=== PATIENT | female | born 1950 | race Caucasian/White ===

== ENCOUNTER → 2016-09-02 | Outpatient (CLI) | payer BC ==
[~2016-09-02] MED LIST: CHOL100027 PO; LEVO1TAB33 PO; LEVO75TA5 PO; OMG3 PO; PRLSR20 PO; THEO1TAB PO
--- NOTE | 2016-09-02 15:23 | MAMMOGRAPHY REPORT ---
UNILATERAL LEFT DIGITAL DIAGNOSTIC MAMMOGRAM TOMOSYNTHESIS WITH CAD: 09/02/2016 CLINICAL HISTORY: Six-month follow-up of left breast calcifications. TECHNIQUE: Breast tomosynthesis in addition to standard 2D mammography was performed. Current study was also evaluated with a Computer Aided Detection (CAD) system. Left CC and MLO 2-D and tomosynthes is images and spot magnification left CC and ML views were obtained. COMPARISON: Comparison is made to exams dated: 03/03/2016 mammogram, 02/24/2016 mammogram, 4 mammogram - [facility], 11/07/2012 mammogram, and 09/15/2011 mammogram - [facility]. BREAST COMPOSITION: There are scattered areas of fibroglandular density in the left breast. FINDINGS: Again noted is a small 4 mm cluster of punctate benign-appearing calcifications in the lef t upper inner quadrant. The calcifications are stable on spot magnification views dated 03/03/2016, and the calcifications may have been present on prior exams such as the 2010 and 2011 exam exam altho ugh there are technical differences which make it difficult to confirm stability. The other small 3 mm cluster of coarse heterogeneous calcifications in the left 6:00 breast are also stable compared to the 03/03/2016 exam and appear more coarsened compared to the 2013 exam. The calc ifications are probably benign and another short interval follow-up is recommended. The remainder of the left breast is stable compared to prior exams, without suspicious masses, calcifications, or are as of architectural distortion noted. Other benign-appearing left breast calcifications are not sign ificantly changed. IMPRESSION: ACR-BI-RADS CATEGORY 3: PROBABLY BENIGN Two small clusters of benign-appearing calcifications in the left upper inner quadrant and left 6:00 breast are stable on spot magnification views dated 03/03/2016 and are probably benign. Recommend bi lateral diagnostic tomosynthesis mammograms in 6 months, to reevaluate the left breast calcifications and for routine mammography of the right breast. The patient and her family have been verbally notified of the results. Approximately 10% of breast cancers are not detected with mammography. A negative mammographic report should not delay biopsy if a clinically suggestive mass is present. Kathi Bush M.D. /:09/02/2016 14:05:07 Paint Prep Technician: Joanna VU)(), [facility] letter sent: Follow Up Recommended 3 BI-RADS Code: ACR-BI-RADS Category 3: Probably Benign
== END | disposition home or self-care (01) ==
LOC: C.MAMM 13:12
PROVIDERS: ATTEND Family Medicine
DX: R92.1 Mammographic calcification found on diagnostic imaging of breast (principal)

== ENCOUNTER 2021-08-27 05:52 | Inpatient (IN) ==
[2021-08-27] MEDS ORDERED: SODIUM CHLORIDE 0.9% 250 ML IV PRN ×3 (06:12→22:05)
[2021-08-27] MEDS ORDERED: PANTOprazole 40 MG in SYRINGE 0 ML IV ONE (06:14)
--- NOTE | 2021-08-27 06:19 | Emergency Department Note ---
History of Present Illness General Chief complaint: GI Bleed Time Seen by Provider: 08/27/21 06:12 History of Present Illness 71-year-old female from a senior care via EMS reportedly EMS was called for a fall out of bed. When they they found the patient on the floor without any significant trauma however she was vomiting blood and had bloody bowel movement. Reportedly her blood pressure was 70s over 40s prior to emergency department arrival. Patient is on aspirin. Patient is recently been seen in our emergency department for falling. Patient's caregiver pulp mill supervisor states that she was doing fine last night. Patient denies any specific abdominal pain. There are no other mitigating or alleviating factors the patient is a poor historian due to her cognitive condition Home Medications Medication Instructions Recorded Confirmed Type cholecalciferol (vitamin D3) 25 1,000 unit PO QAM 03/19/19 08/19/21 History mcg (1,000 unit) tablet (Vitamin D3) levothyroxine 75 mcg tablet 75 mcg PO QAM 03/19/19 08/19/21 History metoprolol succinate 25 mg 12.5 mg PO QPM 03/19/19 08/19/21 History tablet,extended release 24 hr omega 3-hoc-gwt-fish oil 1,000 mg 1 cap PO QAM 03/19/19 08/19/21 History (120 mg-180 mg) capsule (Fish Oil) aspirin 81 mg tablet,delayed 81 mg PO HS 10/01/20 08/19/21 History release (Adult Aspirin Regimen) docusate sodium 100 mg capsule 200 mg PO HS 10/01/20 08/19/21 History (Colace) furosemide 20 mg tablet (Lasix) 20 mg PO 3XWK 10/01/20 08/19/21 History pravastatin 20 mg tablet 20 mg PO QAM 10/01/20 08/19/21 History L.acidophil,salivari-Bifido 1 cap PO QAM 08/19/21 08/19/21 History bifidum-Strep thermoph 175 mg capsule (Acidophilus Probiotic Blend) alendronate 70 mg tablet (Fosamax) 70 mg PO WK 08/19/21 08/19/21 History conjugated estrogens 0.625 mg/gram 0.625 mg VAGINAL 2XWK 08/19/21 08/19/21 History vaginal cream (Premarin) cyanocobalamin (vitamin B-12) 250 250 mcg PO QAM 08/19/21 08/19/21 History mcg tablet (Vitamin B-12) escitalopram oxalate 20 mg tablet 20 mg PO HS 08/19/21 08/19/21 History melatonin 5 mg sublingual tablet 5 mg SUBLINGUAL HS 08/19/21 08/19/21 History sennosides 8.6 mg tablet (senna) 8.6 mg PO HS 08/19/21 08/19/21 History Allergies Allergy/AdvReac Type Severity Reaction Status Date / Time Influenza Virus Vaccines Allergy Unknown VERY SICK Verified 08/19/21 10:59 Past Med/Surg History Medical History Acute diverticulitis CAD (coronary artery disease) Candidal vaginitis Change in mental status Chronic constipation Down syndrome Fever (04/09/13) Heart disease Hypoxemia Influenza A Ischemic cardiomyopathy Leukocytosis Mitral regurgitation Pneumonia Surgical History No pertinent past surgical history Family History Other No pertinent family history in first degree relatives Social History Smoking Status: Never smoker Hx Alcohol Use: No Hx Substance Use: No Preferred Language: Palauan Communication Ability: Effective Children'S Entertainer Required: No Beliefs That Will Affect Care: None marital status: Single Current Living Situation: Parent Current Living Situation Comment: mother Feels Safe at Home: Yes Assistive Devices: Glasses and Hearing Aid - Bilateral Review of Systems Unobtainable due to cognitive status Physical Exam Vital Signs Vital Signs - 24 hr 08/27/21 05:45 Temperature 36.9 C Temperature Source Oral Pulse Rate 78 Respiratory Rate 20 Respiratory Effort / Characteristics Non-Labored Respiratory Depth Normal Blood Pressure 102/65 Blood Pressure Mean 77 Pulse Oximetry 94 Oxygen Delivery Method Room Air Sepsis Recent Fever Within 48 Hours No Sepsis New/Unexplained Change in Mental Status No Sepsis Action Taken by Nursing No Action Required VITAL SIGNS - Vital signs and nursing notes were reviewed. GENERAL -Ill appearing; and is moaning interactive but moans SKIN - Without rashes. HEAD - NC/AT. EYES - PERRL with EOMI bilaterally. Sclera anicteric. Palpebral conjunctiva pink and moist with no injection noted. EARS - No deformities of external structures noted on gross examination bilaterally. NOSE - Midline and without cyanosis. No epistaxis or purulent drainage noted. Septum midline without deviation or septal hematoma noted. MOUTH/OROPHARYNX - Without perioral cyanosis. Patient has dried hematemesis in the oropharynx and around her mouth NECK - Neck with FROM. LUNGS - Chest wall symmetric without accessory muscle use, intercostals retractions, or central cyanosis. Normal vesicular breath sounds CTA B/L. No wheezes, rales, or rhonchi appreciated. CARDIAC - RRR with S1/S2. No murmur, rubs, or gallops appreciated. ABDOMEN - Abdominal contour soft without pulsations or visible masses. BS normoactive all four quadrants. No tenderness, palpable masses, hepatosplenomegaly, or ascites noted. RECTAL - heme positive melana EXTREMITIES - No clubbing or peripheral cyanosis. NEUROLOGIC - Cranial nerves II through XII grossly intact. PSYCH -alert interactive but moaning. Is interactive and answers questions with shaking her head she does understand myself and the nurses at bedside Course Reevaluation(s) Reevaluation #1: Spoke with the [facility] she states that the patient has the cognitive ability to sign for blood. I have consented the patient she does acknowledge affirmatively that she would like to receive blood Time: 06:24 Reevaluation #2: Patient's blood pressure is 102/85 Time: 06:24 Critical Care Time Critical Care Time: Yes Total Critical Care Time: 35 I have personally spent greater than 35 minutes of critical care time in the direct management of this patient. This includes bedside care, interpretation of diagnostic studies, and testing, discussion with consultants, patient, and family members, and other required patient management activities. These minutes are in excess of all separately billable procedures. Medical Decision Making Medical Records Attestation: I reviewed the patient's medical records. Home Medications Current Medication List: was personally reviewed by me Laboratory Data Attestation: I reviewed the patient's lab results. Result diagrams: 08/27/21 06:10 08/27/21 06:10 Lab Results 08/27/21 08/27/21 08/27/21 Range/Units 06:03 06:05 06:10 WBC (4.8-10.8) K/uL RBC (4.2-5.4) M/uL Hgb (12.0-16.0) g/dL POC Hgb 5.8 L* (12.0-16.0) g/dl Hct (37-47) % POC Hct 17 L* (37-47) % MCV (80-100) fL MCH (25-34) pg MCHC (32-36) g/dL RDW Std Deviation (36.4-46.3) fL RDW Coeff of Glenn (11.5-14.5) % Plt Count (130-400) K/uL MPV (7.4-10.4) fL POC Sodium 145 H (135-144) mmol/L Sodium (136-145) mmol/L POC Potassium 3.9 (3.3-5.0) mmol/L Potassium (3.5-5.1) mmol/L POC Chloride 107 (101-112) mmol/L Chloride (98-107) mmol/L Carbon Dioxide (21-32) mmol/L POC Total CO2 25 (24-31) mmol/L Anion Gap (3-11) POC Anion Gap 18.0 (16-25) mmol/L POC BUN 54 H (7-18) mg/dl BUN (6-23) mg/dl Creatinine (0.6-1.2) mg/dl POC Creatinine 0.7 (0.6-1.3) mg/dl Est Cr Clr Drug Dosing ml/min Est GFR ( Amer) ml/min Est GFR (Non-Af Amer) ml/min BUN/Creatinine Ratio (10-20) Glucose (70-99(Fasting)) mg/dl POC Glucose (other) 153 H (70-99) mg/dl Calcium (8.5-10.1) mg/dl POC Ioniz Calcium Kenrick 1.15 (1.12-1.32) mmol/l Total Bilirubin (0.2-1.0) mg/dl AST (13-39) U/L ALT (7-52) U/L Alkaline Phosphatase (34-104) U/L Total Protein (6.0-8.3) gm/dl Albumin (3.4-5.0) gm/dl Globulin (2.5-4.0) gm/dl Albumin/Globulin Ratio (0.9-2) POC Stool Occult Blood Positive A (Negative) SARS-CoV-2, RNA, NAAT (NEGATIVE) Crossmatch See Detail 08/27/21 08/27/21 08/27/21 Range/Units 06:10 06:10 06:12 WBC 9.51 (4.8-10.8) K/uL RBC 2.10 L (4.2-5.4) M/uL Hgb 6.4 L* (12.0-16.0) g/dL POC Hgb (12.0-16.0) g/dl Hct 20.1 L* (37-47) % POC Hct (37-47) % MCV 95.7 (80-100) fL MCH 30.5 (25-34) pg MCHC 31.8 L (32-36) g/dL RDW Std Deviation 48.9 H (36.4-46.3) fL RDW Coeff of Glenn 14.1 (11.5-14.5) % Plt Count 163 (130-400) K/uL MPV 9.0 (7.4-10.4) fL POC Sodium (135-144) mmol/L Sodium 144 (136-145) mmol/L POC Potassium (3.3-5.0) mmol/L Potassium 4.0 (3.5-5.1) mmol/L POC Chloride (101-112) mmol/L Chloride 112 H (98-107) mmol/L Carbon Dioxide 28 (21-32) mmol/L POC Total CO2 (24-31) mmol/L Anion Gap 4 (3-11) POC Anion Gap (16-25) mmol/L POC BUN (7-18) mg/dl BUN 56 H (6-23) mg/dl Creatinine 0.68 (0.6-1.2) mg/dl POC Creatinine (0.6-1.3) mg/dl Est Cr Clr Drug Dosing 60.0 ml/min Est GFR ( Amer) 102.7 ml/min Est GFR (Non-Af Amer) 88.6 ml/min BUN/Creatinine Ratio 82.4 H (10-20) Glucose 155 H (70-99(Fasting)) mg/dl POC Glucose (other) (70-99) mg/dl Calcium 7.8 L (8.5-10.1) mg/dl POC Ioniz Calcium Kenrick (1.12-1.32) mmol/l Total Bilirubin 0.3 (0.2-1.0) mg/dl AST 12 L (13-39) U/L ALT 9 (7-52) U/L Alkaline Phosphatase 41 (34-104) U/L Total Protein 4.6 L (6.0-8.3) gm/dl Albumin 3.0 L (3.4-5.0) gm/dl Globulin 1.6 L (2.5-4.0) gm/dl Albumin/Globulin Ratio 1.9 (0.9-2) POC Stool Occult Blood Positive A (Negative) SARS-CoV-2, RNA, NAAT (NEGATIVE) Crossmatch 08/27/21 Range/Units 06:27 WBC (4.8-10.8) K/uL RBC (4.2-5.4) M/uL Hgb (12.0-16.0) g/dL POC Hgb (12.0-16.0) g/dl Hct (37-47) % POC Hct (37-47) % MCV (80-100) fL MCH (25-34) pg MCHC (32-36) g/dL RDW Std Deviation (36.4-46.3) fL RDW Coeff of Glenn (11.5-14.5) % Plt Count (130-400) K/uL MPV (7.4-10.4) fL POC Sodium (135-144) mmol/L Sodium (136-145) mmol/L POC Potassium (3.3-5.0) mmol/L Potassium (3.5-5.1) mmol/L POC Chloride (101-112) mmol/L Chloride (98-107) mmol/L Carbon Dioxide (21-32) mmol/L POC Total CO2 (24-31) mmol/L Anion Gap (3-11) POC Anion Gap (16-25) mmol/L POC BUN (7-18) mg/dl BUN (6-23) mg/dl Creatinine (0.6-1.2) mg/dl POC Creatinine (0.6-1.3) mg/dl Est Cr Clr Drug Dosing ml/min Est GFR ( Amer) ml/min Est GFR (Non-Af Amer) ml/min BUN/Creatinine Ratio (10-20) Glucose (70-99(Fasting)) mg/dl POC Glucose (other) (70-99) mg/dl Calcium (8.5-10.1) mg/dl POC Ioniz Calcium Kenrick (1.12-1.32) mmol/l Total Bilirubin (0.2-1.0) mg/dl AST (13-39) U/L ALT (7-52) U/L Alkaline Phosphatase (34-104) U/L Total Protein (6.0-8.3) gm/dl Albumin (3.4-5.0) gm/dl Globulin (2.5-4.0) gm/dl Albumin/Globulin Ratio (0.9-2) POC Stool Occult Blood (Negative) SARS-CoV-2, RNA, NAAT NEGATIVE (NEGATIVE) Crossmatch MDM Narrative Medical decision making differential diagnosis upper GI bleed lower GI bleed anemia esophagitis ulcerative bleeding. Metabolic derangement. Plan is to check labs, transfuse blood Impression & Plan Upper gastrointestinal hemorrhage, Anemia Discharge Plan Visit Data Chief Complaint: GI Bleed ED Provider: Олег Cameron Discharge Problem: Upper gastrointestinal hemorrhage, Anemia Patient Disposition: Admitted As Inpatient Forms Stand Alone Forms: My [facility] Prescriptions Prescriptions: No Action pravastatin 20 mg tablet 20 mg PO QAM RF: 0 aspirin [Adult Aspirin Regimen] 81 mg tablet,delayed release (DR/EC) 81 mg PO HS RF: 0 docusate sodium [Colace] 100 mg capsule 200 mg PO HS RF: 0 furosemide [Lasix] 20 mg tablet 20 mg PO 3XWK RF: 0 levothyroxine 75 mcg tablet 75 mcg PO QAM RF: 0 metoprolol succinate 25 mg tablet extended release 24 hr 12.5 mg PO QPM RF: 0 cholecalciferol (vitamin D3) [Vitamin D3] 25 mcg (1,000 unit) Tablet 1,000 unit PO QAM RF: 0 omega 0-dts-wnu-fish oil [Fish Oil] 1,000 mg (120 mg-180 mg) Capsule 1 cap PO QAM RF: 0 sennosides [senna] 8.6 mg Tablet 8.6 mg PO HS RF: 0 melatonin 5 mg Tablet, Sublingual 5 mg SUBLINGUAL HS RF: 0 alendronate [Fosamax] 70 mg Tablet 70 mg PO WK RF: 0 cyanocobalamin (vitamin B-12) [Vitamin B-12] 250 mcg Tablet 250 mcg PO QAM RF: 0 escitalopram oxalate 20 mg tablet 20 mg PO HS RF: 0 L.acidoph,saliva-B.bif-S.therm [Acidophilus Probiotic Blend] 175 mg Capsule 1 cap PO QAM RF: 0 Premarin 0.625 mg/gram cream 0.625 mg vaginal 2XWK RF: 0 Referrals Referrals: Lulu Harper MD [Primary Care Provider] - Discharge Problem: Anemia Qualifiers: Anemia type: unspecified type Qualified Code(s): D64.9 - Anemia, unspecified
[2021-08-27 06:22] LABS: iSTAT Creatinine 0.7 mg/dl (0.6-1.3); iSTAT Hemoglobin 5.8 g/dl (12.0-16.0); iSTAT Ionized Calcium 1.15 mmol/l (1.12-1.32); iSTAT Potassium 3.9 mmol/L (3.3-5.0)
[2021-08-27] MEDS ORDERED: ONDANSETRON INJ 2 MG/ML 2 ML VIAL IV STA (06:28)
[2021-08-27 06:36] LABS: Hematocrit (blood only) 20.1 % (37-47); Hemoglobin 6.4 g/dL (12.0-16.0); Mean Corpuscular Hemoglobin 30.5 pg (25-34); Mean Corpuscular Hgb Conc 31.8 g/dL (32-36); Mean Corpuscular Volume 95.7 fL (80-100); Platelet Count 163 K/uL (130-400); RDW Coefficient of Variation 14.1 % (11.5-14.5); RDW Standard Deviation 48.9 fL (36.4-46.3); White Blood Count 9.51 K/uL (4.8-10.8)
[2021-08-27 06:51] LABS: Albumin Globulin Ratio 1.9 (0.9-2); BUN Creatinine Ratio 82.4 (10-20); Bilirubin,Total 0.3 mg/dl (0.2-1.0); Calcium 7.8 mg/dl (8.5-10.1); Est GFR (African American) 102.7 ml/min; Est GFR (Non-African American) 88.6 ml/min; Globulin 1.6 gm/dl (2.5-4.0); Total Protein 4.6 gm/dl (6.0-8.3)
[2021-08-27 06:56] LABS: INR 1.1 (0.9-1.1); Partial Thromboplastin Ratio 0.7; Partial Thromboplastin Time < 20.0 Seconds (21.0-31.0); Prothrombin Time 11.8 Seconds (9.0-12.0)
--- NOTE | 2021-08-27 07:44 | History & Physical Report ---
Date of Service August 27, 2021 Assessment & Plan (1) GI bleed: Plan: Ely is a 71-year-old female alf resident who presents by EMS after a fall out of bed. Patient was found vomiting blood with a bloody bowel movement with blood pressure of 70s over 40s in the ER on arrival --> 100 systolic. 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 History is limited due to cognitive status and history of Down syndrome. Acute blood loss anemia 2/2 GI bleed Admitting hemoglobin 6.4 Creatinine 0.69, baseline normal Fecal occult blood positive COVID-negative Status post 2 days of blood with improvement in vitals from 70/40s to 100s GI consulted by ER. Discussed by ER briefly with Dr. River who recommended consultation for [facility]. Notified on follow-up that case has been recommended for [facility] service, consult placed Posttransfusion hemoglobin pending Trend CBC PPI bolus given in ER Continue PPI drip Aspirin held Initial hypotension improved with blood pressure to 100-110 and without tachycardia following blood xfusion initiation Borderline low EF, cautious fluids and will follow for Lasix as needed Per patient and sister at bedside patient was seen at [facility] for a hiatal hernia repair many years ago, has not been seen by GI here. They think she may have had some GERD episodes in the past. Takes aspirin, not on NSAIDs. Depression/anxiety Continue Lexapro 20 mg p.o. at bedtime CAD with history of heart failure ejection fraction 50% Home Lasix held for hypotension and bleeding Metoprolol 12.5 p.o. every afternoon home dose held for acute hypotension Aspirin held in the setting of acute bleeding Denies chest pain at time of assessment EKG: NSR without acute ST segment changes on admission Hypothyroidism Synthroid 75 mcg p.o. every morning TSH pending Hyperlipidemia Pravastatin 20 mg p.o. every morning DVT prophylaxis: SCDs, pharmacal prophylaxis contraindicated in the setting of bleed Diet: N.p.o. Disposition: PCU, pending GI eval for EGD CODE STATUS: (2) Fall: (3) Upper gastrointestinal hemorrhage: (4) Anemia: (5) Thrombocytopenia: (6) Leukopenia: (7) Hypothyroidism: (8) Down syndrome: (9) CAD (coronary artery disease): History of Present Illness Primary Care Provider: Lulu Harper MD Ely is a 71-year-old female alf resident who presents by EMS after a fall out of bed. Patient was found vomiting blood with a bloody bowel movement with blood pressure of 70s over 40s in the ER on arrival --> 100 systolic. 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 History is limited due to cognitive status and history of Down syndrome. 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 [facility]. Sister Kate Salvador is present. #[phone]. Medical Power of Machine Stoppage Frequency Checker Ely is normally 'very fast on her feet and has club feet so sometimes just goes and falls being clumbsy when not lifting her feet. Does do well with a walker.' Falls are usually once per year or so. Three falls in the last few months. Mechanical falls (fell ove a doorway bar, last one mechanical tripped over her foot). No lightheadedness, dizziness, syncope. No blurry vision. 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 Following outpatient opthamology with serial imaging q6m stable. Routine f/u with physicians. Are looking for PT when she returns to the [facility]. CHF followed w/ Dr. Banegas, CAD. EF 50%, grade I diastolic dysfunction - Takes lasix. Unsure if diastolic or systolic. - No recent chest pain or chest discomfort - No history of heart attack/SC - Pt/sister unclear of ischemic history, HF details - ASA 81mg daily for CAD - take mtp as noted Initial labs: Hemoglobin 6.4, no leukocytosis, sodium 145, potassium 3.9, creatinine 0.68 with normal baseline, fecal occult blood positive, COVID-negative 40mg IV bolus PPI 2 units blood pended GI consulted prior to admit. Discussed with [facility] GI Dr. العراقي [facility] --> patient not accepted for [facility] and recommended to consult [facility] GI. Placed by ER, notified ~11 am that pt needs to be under [facility] service. PSH consult placed. Medical History: Reviewed. No meds today Medications: Reviewed. NKDA. Surgical History: Reviewed. Thinks distant histerectomy, sister is not positive. Esophageal hital hernia repair 2010. Allergies: Reviewed Social History: No tobacco use, no alcohol use, no RR drug use, no MM use. Code Status: DNR/DNi Allergies Allergy/AdvReac Type Severity Reaction Status Date / Time Influenza Virus Vaccines Allergy Unknown VERY SICK Verified 08/19/21 10:59 Home Medications Medication Instructions Recorded Confirmed Type cholecalciferol (vitamin D3) 25 1,000 unit PO QAM 03/19/19 08/19/21 History mcg (1,000 unit) tablet (Vitamin D3) levothyroxine 75 mcg tablet 75 mcg PO QAM 03/19/19 08/19/21 History metoprolol succinate 25 mg 12.5 mg PO QPM 03/19/19 08/19/21 History tablet,extended release 24 hr omega 4-mps-iku-fish oil 1,000 mg 1 cap PO QAM 03/19/19 08/19/21 History (120 mg-180 mg) capsule (Fish Oil) aspirin 81 mg tablet,delayed 81 mg PO HS 10/01/20 08/19/21 History release (Adult Aspirin Regimen) docusate sodium 100 mg capsule 200 mg PO HS 10/01/20 08/19/21 History (Colace) furosemide 20 mg tablet (Lasix) 20 mg PO 3XWK 10/01/20 08/19/21 History pravastatin 20 mg tablet 20 mg PO QAM 10/01/20 08/19/21 History L.acidophil,salivari-Bifido 1 cap PO QAM 08/19/21 08/19/21 History bifidum-Strep thermoph 175 mg capsule (Acidophilus Probiotic Blend) alendronate 70 mg tablet (Fosamax) 70 mg PO WK 08/19/21 08/19/21 History conjugated estrogens 0.625 mg/gram 0.625 mg VAGINAL 2XWK 08/19/21 08/19/21 History vaginal cream (Premarin) cyanocobalamin (vitamin B-12) 250 250 mcg PO QAM 08/19/21 08/19/21 History mcg tablet (Vitamin B-12) escitalopram oxalate 20 mg tablet 20 mg PO HS 08/19/21 08/19/21 History melatonin 5 mg sublingual tablet 5 mg SUBLINGUAL HS 08/19/21 08/19/21 History sennosides 8.6 mg tablet (senna) 8.6 mg PO HS 08/19/21 08/19/21 History Past Med/Surg History Medical History Acute diverticulitis CAD (coronary artery disease) Candidal vaginitis Change in mental status Chronic constipation Down syndrome Fever (04/09/13) Heart disease Hypoxemia Influenza A Ischemic cardiomyopathy Leukocytosis Mitral regurgitation Pneumonia Surgical History (Updated 08/27/21 @ 08:56 by Rhys Sousa MD) H/O: hysterectomy per pts sister History of repair of hiatal hernia No pertinent past surgical history Family History Other No pertinent family history in first degree relatives Social History Smoking Status: Never smoker Hx Alcohol Use: No Hx Substance Use: No Preferred Language: Estonian Communication Ability: Effective 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 NAD. Cooperative. HEENT: Atraumatic, normocephalic. Vision grossly intact. Very [place], hearing aids present. Pulm: CTAB A&P. -wheezes, -rales, -rhonchi. Symmetrical chest rise. No increased work of breathing. No respiratory distress. Cardiac: RRR, -mrg. Radial pulses intact and symmetrical. Abdominal: Nontender, nondistended, soft. BS present. Results & Data Results & Data ([facility]) Vital Signs (Past 12 Hours) Vital Signs Temp Pulse Resp BP Pulse Ox 08/27/21 05:45 36.9 C 78 20 102/65 94 PG Care Time/CCT Total # of Minutes Spent Total Time Spent with Patient: Total time spent is greater than 50% in coordination of care (as documented) at patient's floor/unit and/or counseling patient: Coding Level of Care Code 98688 Initial Inpt Care Lvl 3 Diagnoses GI bleed K92.2 Fall W19.XXXA Encounter type: initial encounter Upper gastrointestinal hemorrhage K92.2 Anemia D64.9 Anemia type: unspecified type Thrombocytopenia D69.6 Leukopenia D72.819 Hypothyroidism E03.9 Down syndrome Q90.9 CAD (coronary artery disease) I25.10 (1) Anemia Anemia type: unspecified type Qualified Code(s): D64.9 - Anemia, unspecified (2) Fall Encounter type: initial encounter Qualified Code(s): W19.XXXA - Unspecified fall, initial encounter
[2021-08-27] MEDS ORDERED: ACETAMINOPHEN 325 MG TAB ONE (11:37)
[2021-08-27] MEDS: PANTOprazole 40 MG in DEXTROSE 5% 100 ML IV SCH ×2 (11:55→18:54)
--- NOTE | 2021-08-27 12:43 | Electrocardiogram Report ---
Test Reason : Blood Pressure : / mmHG Vent. Rate : 075 BPM Atrial Rate : 075 BPM P-R Int : 128 ms QRS Dur : 118 ms QT Int : 452 ms P-R-T Axes : 114 -35 057 degrees QTc Int : 504 ms Poor data quality, interpretation may be adversely affected Normal sinus rhythm Left axis deviation Anterior infarct (cited on or before 27-AUG-2021) Abnormal ECG When compared with ECG of 19-MAR-2019 16:36, Fusion complexes are no longer Present Premature ventricular complexes are no longer Present Nonspecific T wave abnormality now evident in Lateral leads Confirmed by Juni Redman ([id number]) on 08/27/2021 12:43:15 PM Referred By: REFERRED SELF Confirmed By:Juni Redman
[2021-08-27] MEDS ORDERED: ONDANSETRON INJ 2 MG/ML 2 ML VIAL IV PRN (12:44)
[2021-08-27] MEDS ORDERED: POLYETHYLENE (MIRALAX) 17 GM PACK PO PRN (12:44)
[2021-08-27] MEDS ORDERED: PANTOPRAZOLE BOLUS/DRIP 1 EA IV STA (12:44)
[2021-08-27] MEDS ORDERED: PANTOprazole 40 MG in DEXTROSE 5% 100 ML IV SCH (12:44)
[2021-08-27] MEDS ORDERED: PANTOprazole 80 MG in DEXTROSE 5% 100 ML IV ONE (12:44)
[2021-08-27] MEDS ORDERED: ACETAMINOPHEN 325 MG TAB PO PRN (12:44)
--- NOTE | 2021-08-27 14:39 | Gastrointestinal Consultation ---
Date of Consultation August 27, 2021 Assessment & Plan (1) GI bleed: (2) Upper gastrointestinal hemorrhage: (3) Fall: (4) Acute blood loss anemia: (5) Down syndrome: Impression is acute upper GI bleeding with acute blood loss anemia and hemodynamic instability in a 71 yo woman with Down syndrome, CAD, CHF, ischemic cardiomyopathy. Differential diagnosis includes bleeding from erosive esophagitis, NSAID gastroduodenopathy, hemorrhagic gastrtitis, and gastroduodenal ulcer disease. She has been resuscitated and I recommend proceeding with EGD for identification and control of bleeding if necessary. History of Present Illness Reason for Consultation: Hematemesis and Melena Attending Physician: Rhys Sousa MD History of Present Illness 71 yo woman with intellectual and developmental disability due to Down syndrome, and history of ischemic cardiomyopathy, mitral regurgitation, and congestive heart failure, transferred [facility] a [facility] due to an episode of hematemesis and passing melena and collapsing on the floor.. On arrival in the ER, she was hemodynamically unstable with systolic pressure < 90 mm Hg, and initial Hgb was 6-7. She was successfully resuscitated with IV fluids with recovery of systolic pressure to 110 mm Hg, and when examined she was receiving packed cells. History obtained from the patient's sister and her [facility] caregiver. No previous history of GI bleeding. She takes daily low dose aspirin, no other NSAIDS, no other anti platelet agents or anticoagulation. History of CHF, no history of atrai fibrillation, [place], coronary stents. Allergies Allergy/AdvReac Type Severity Reaction Status Date / Time No Known Allergies Allergy Unverified 08/27/21 12:44 Home Medications Medication Instructions Recorded Confirmed Type cholecalciferol (vitamin D3) 25 1,000 unit PO QAM 03/19/19 08/27/21 History mcg (1,000 unit) tablet (Vitamin D3) levothyroxine 75 mcg tablet 75 mcg PO QAM 03/19/19 08/27/21 History metoprolol succinate 25 mg 12.5 mg PO QPM 03/19/19 08/27/21 History tablet,extended release 24 hr omega 9-lmz-vqn-fish oil 1,000 mg 1 cap PO QAM 03/19/19 08/27/21 History (120 mg-180 mg) capsule (Fish Oil) aspirin 81 mg tablet,delayed 81 mg PO HS 10/01/20 08/27/21 History release (Adult Aspirin Regimen) docusate sodium 100 mg capsule 200 mg PO HS 10/01/20 08/27/21 History (Colace) furosemide 20 mg tablet (Lasix) 20 mg PO 3XWK 10/01/20 08/27/21 History pravastatin 20 mg tablet 20 mg PO QAM 10/01/20 08/27/21 History L.acidophil,salivari-Bifido 1 cap PO QAM 08/19/21 08/27/21 History bifidum-Strep thermoph 175 mg capsule (Acidophilus Probiotic Blend) alendronate 70 mg tablet (Fosamax) 70 mg PO WK 08/19/21 08/27/21 History conjugated estrogens 0.625 mg/gram 0.625 mg VAGINAL 2XWK 08/19/21 08/27/21 History vaginal cream (Premarin) cyanocobalamin (vitamin B-12) 250 250 mcg PO QAM 08/19/21 08/27/21 History mcg tablet (Vitamin B-12) escitalopram oxalate 20 mg tablet 20 mg PO HS 08/19/21 08/27/21 History melatonin 5 mg sublingual tablet 5 mg SUBLINGUAL HS 08/19/21 08/27/21 History sennosides 8.6 mg tablet (senna) 8.6 mg PO HS 08/19/21 08/27/21 History furosemide 20 mg tablet 20 mg PO DAILY PRN 08/27/21 08/27/21 History Patient History Medical History (Updated 08/27/21 @ 16:54 by Lionel Cooper MD) Acute diverticulitis CAD (coronary artery disease) Candidal vaginitis Change in mental status Chronic constipation Down syndrome Fever (04/09/13) Heart disease Hypoxemia Influenza A Ischemic cardiomyopathy Leukocytosis Mitral regurgitation Pneumonia Surgical History (Updated 08/27/21 @ 08:56 by Rhys Sousa MD) H/O: hysterectomy per pts sister History of repair of hiatal hernia No pertinent past surgical history Family History Other No pertinent family history in first degree relatives Social History Smoking Status: Never smoker Second Hand Exposure: No; Hx Alcohol Use: No Hx Substance Use: No Preferred Language: [place] Communication Ability: Effective Umbrella Cutter Required: No Beliefs That Will Affect Care: None marital status: Single Current Living Situation: Other Current Living Situation Comment: INTERMEDIATE Other Information That Helps Us Care for You: No Feels Safe at Home: Yes Safety Concerns: Feels Safe At This Time Assistive Devices: Glasses and Hearing Aid - Bilateral Review of Systems Review of Systems: Unobtainable due to cognitive status Physical Exam Constitutional: + ill appearing, + altered mental status, + behavioral limitations, + physical limitations, + disheveled and + lethargic Respiratory: normal respiratory effort, lungs clear to auscultation Cardiovascular: Rate/Rhythm: regular rate and regular rhythm Heart Sounds: + murmur Gastrointestinal (Abdomen): normal bowel sounds, soft, nontender, no hepatosplenomegaly Neurologic: lethargic, responsive, with dementia, disorientation Results & Data ([facility]) Vital Signs (Past 12 Hours) Vital Signs Temp Pulse Resp BP Pulse Ox 08/27/21 14:15 82 15 91/52 L 90 08/27/21 14:02 37.0 C 81 18 107/54 L 94 08/27/21 14:00 82 15 107/54 L 98 08/27/21 13:45 82 17 101/48 L 91 08/27/21 13:30 85 17 104/48 L 97 08/27/21 13:24 37 C 84 18 104/48 L 98 08/27/21 13:15 87 15 111/52 L 96 08/27/21 13:00 89 17 85/49 L 92 08/27/21 12:59 37.2 C 88 18 96/58 L 96 08/27/21 12:45 88 19 96/58 L 94 08/27/21 12:42 36.7 C 18 98/47 L 96 08/27/21 12:30 36.7 C 87 18 98/47 L 95 08/27/21 12:15 37.4 C 88 18 96/48 L 96 08/27/21 12:00 93 H 19 98/53 L 97 08/27/21 11:54 37.6 C H 92 H 21 98/55 L 96 08/27/21 11:45 36.7 C 92 H 22 113/53 L 95 08/27/21 11:30 38.3 C H 93 H 26 H 105/49 L 94 08/27/21 11:24 36.7 C 92 H 18 109/52 L 96 08/27/21 11:22 92 H 20 109/52 L 96 08/27/21 11:15 92 H 18 103/55 L 95 08/27/21 11:10 37.2 C 91 H 20 103/55 L 96 08/27/21 11:06 37.0 C 92 H 20 116/47 L 94 08/27/21 11:00 92 H 22 116/47 L 95 08/27/21 10:45 93 H 25 H 125/56 L 08/27/21 10:30 92 H 22 113/55 L 08/27/21 10:15 93 H 26 H 105/57 L 08/27/21 10:10 37.2 C 86 100/58 L 96 08/27/21 10:00 19 100/59 L 95 08/27/21 09:45 19 96/52 L 95 08/27/21 09:30 19 105/46 L 95 08/27/21 09:15 37.0 C 90 23 110/50 L 96 08/27/21 09:00 37.1 C 89 17 105/70 98 08/27/21 08:45 85 19 102/52 L 95 08/27/21 08:30 86 24 98/47 L 98 08/27/21 08:25 86 19 98/47 L 08/27/21 08:24 37.2 C 86 18 94/40 L 96 08/27/21 08:15 84 22 103/48 L 95 08/27/21 08:13 85 20 99/46 L 96 08/27/21 08:10 84 18 96 08/27/21 08:04 37.2 C 84 18 101/36 L 08/27/21 08:00 81 19 101/36 L 97 08/27/21 07:50 83 20 93 08/27/21 07:45 96 08/27/21 07:40 81 20 94 08/27/21 07:30 81 21 85/61 L 95 08/27/21 07:20 84 19 94 08/27/21 07:10 80 20 100 08/27/21 07:00 78 22 107/46 L 98 08/27/21 06:50 76 24 96 08/27/21 06:40 78 27 H 96 08/27/21 06:30 78 25 H 102/49 L 95 08/27/21 06:20 77 20 92 08/27/21 06:18 79 18 102/65 92 08/27/21 06:10 88 20 08/27/21 06:03 74 19 08/27/21 05:45 36.9 C 78 20 102/65 94 (1) Fall Encounter type: initial encounter Qualified Code(s): W19.XXXA - Unspecified fall, initial encounter
[2021-08-27 16:29] LABS: Hematocrit (blood only) 26.6 % (37-47); Hemoglobin 8.9 g/dL (12.0-16.0)
--- NOTE | 2021-08-27 16:54 | CT Scan Report ---
CT head/brain wo con CLINICAL HISTORY: fall . Pain. COMPARISON STUDY: No previous studies for comparison. CT DOSE: 894.57 mGycm TECHNIQUE: Standard CT of the Brain was performed without IV contrast. A dose lowering technique was utilized adhering to the principles of ALARA. FINDINGS: Extraaxial space: There is no evidence for subdural hematoma. There are no extra-axial fluid collecti ons. Ventricles and cisterns: The ventricles are normal in size and configuration. There is no evidence fo r midline shift or mass effect. Parenchyma: There is no subarachnoid or intraparenchymal hemorrhage. There is no evidence for an acut e infarct or cerebral edema. There is mild cerebral cortical atrophy and decreased attenuation in the periventricular white matter representing remote small vessel disease. There are no gross mass lesions. Osseous structures: There is no evidence for an acute fracture. The visualized paranasal sinuses are clear. The mastoid air cells are clear bilaterally. Soft tissues: There is no evidence for focal soft tissue swelling. IMPRESSION: 1. No acute intracerebral pathology. 2. Mild cerebral cortical atrophy and remote small vessel disease. ACT 112: Negative or not required by law. Electronically signed by: Rambo Davis M.D. 08/27/2021 4:53 PM
--- NOTE | 2021-08-27 17:26 | Anesthesiology Consultation ---
Date of Service August 27, 2021 Assessment & Plan ASA ASA3 Proposed Anesthesia Anesthesia Type: MAC Risk / Benefits Reviewed With: PT / POA / Parent / Guardian, Accepts Plan and Informed Consent Obtained History Surgery Operation Date: 08/27/21 17:10 Proposed Procedures p Esophagogastroduodenoscopy Dr Kenneth Cooper MD Height/Weight Height: 4 ft 10 in Weight: 62.1 kg Allergies Allergy/AdvReac Type Severity Reaction Status Date / Time No Known Allergies Allergy Unverified 08/27/21 12:44 Medications Home Medications Medication Instructions Recorded Confirmed Last Taken cholecalciferol (vitamin D3) 25 1,000 unit PO QAM 03/19/19 08/27/21 08/26/21 mcg (1,000 unit) tablet (Vitamin D3) levothyroxine 75 mcg tablet 75 mcg PO QAM 03/19/19 08/27/21 08/26/21 metoprolol succinate 25 mg 12.5 mg PO QPM 03/19/19 08/27/21 08/26/21 tablet,extended release 24 hr omega 8-mbx-oho-fish oil 1,000 mg 1 cap PO QAM 03/19/19 08/27/21 08/26/21 (120 mg-180 mg) capsule (Fish Oil) aspirin 81 mg tablet,delayed 81 mg PO HS 10/01/20 08/27/21 08/26/21 release (Adult Aspirin Regimen) docusate sodium 100 mg capsule 200 mg PO HS 10/01/20 08/27/21 08/26/21 (Colace) furosemide 20 mg tablet (Lasix) 20 mg PO 3XWK 10/01/20 08/27/21 08/25/21 pravastatin 20 mg tablet 20 mg PO QAM 10/01/20 08/27/21 08/26/21 L.acidophil,salivari-Bifido 1 cap PO QAM 08/19/21 08/27/21 08/26/21 bifidum-Strep thermoph 175 mg capsule (Acidophilus Probiotic Blend) alendronate 70 mg tablet (Fosamax) 70 mg PO WK 08/19/21 08/27/21 08/24/21 conjugated estrogens 0.625 mg/gram 0.625 mg VAGINAL 2XWK 08/19/21 08/27/21 08/26/21 vaginal cream (Premarin) cyanocobalamin (vitamin B-12) 250 250 mcg PO QAM 08/19/21 08/27/21 08/26/21 mcg tablet (Vitamin B-12) escitalopram oxalate 20 mg tablet 20 mg PO HS 08/19/21 08/27/21 08/26/21 melatonin 5 mg sublingual tablet 5 mg SUBLINGUAL HS 08/19/21 08/27/21 08/26/21 sennosides 8.6 mg tablet (senna) 8.6 mg PO HS 08/19/21 08/27/21 08/26/21 furosemide 20 mg tablet 20 mg PO DAILY PRN 08/27/21 08/27/21 Unknown Active Medications Generic Name Dose Route Start Last Admin Trade Name Freq PRN Reason Stop Dose Admin Pantoprazole Sodium 40 mg/ 100 mls @ 20 mls/hr 08/27/21 11:00 08/27/21 11:55 Dextrose IV 09/26/21 10:59 8 mg/hr Q5H JAZMINE 20 mls/hr Administration 8 MG/HR NPO Date Last Intake of Fluids: 08/26/21 Time Last Intake of Fluids: 18:00 Last Intake of Fluids Comment: estimation from sister Date Last Intake of Solids: 08/26/21 Time Last Intake of Solids: 18:00 Last Intake of Solids Comment: estimation from sister Past Medical History Medical History Acute diverticulitis CAD (coronary artery disease) Candidal vaginitis Change in mental status Chronic constipation Down syndrome Fever (04/09/13) Heart disease Hypoxemia Influenza A Ischemic cardiomyopathy Leukocytosis Mitral regurgitation Pneumonia Exercise / Class Metabolic Activity III < 4 Walking/Shop/Light housework Past Family History Family History Other No pertinent family history in first degree relatives Past Surgical History Surgical History H/O: hysterectomy per pts sister History of repair of hiatal hernia No pertinent past surgical history Past Anesthesia History No Hx of Anesthesia Complications and No Family Hx of Anesthesia Complications History of PONV No Hx of PONV and No Hx of Motion Sickness Social History Smoking Status: Never smoker Hx Alcohol Use: No Hx Substance Use: No substance use type: does not use Review of Systems denies fever/cough/ colds/ chest pain/ SOB/ PAUL denies PAUL Physical Exam Vital Signs Last Vital Signs Temp 37.7 C H 08/27/21 16:54 Pulse 91 H 08/27/21 16:54 Resp 20 08/27/21 16:54 BP 99/53 L 08/27/21 16:54 Pulse Ox 96 08/27/21 16:54 ENMT Mouth: no TMJ abnormality and no dentition abnormality Thyromental Distance: > or= 3.5 Finger Breadths Mallampati Class: IV (poor patient participation. difficult to assess) Neck neck extension not limited Respiratory normal respiratory effort; no respiratory distress Auscultation: lungs clear to auscultation bilaterally Cardiovascular Rate/Rhythm: regular rate and regular rhythm Neurologic moves all extremities Psychiatric Orientation: alert and oriented x 3 Testing Laboratory Results 08/27/21 16:08 08/27/21 06:10 PT 11.8 Seconds (9.0-12.0) 08/27/21 06:10 INR 1.1 (0.9-1.1) 08/27/21 06:10 APTT < 20.0 Seconds (21.0-31.0) L 08/27/21 06:10 Blood Type O Positive 08/27/21 06:10 Antibody Screen NEGATIVE 08/27/21 06:10 08/27/21 06:05 POC Glucose (other) 153 H
[2021-08-27] MEDS ORDERED: ATROPINE SULFATE 0.1 MG/ML 10ML SYR IV PRN (17:28)
[2021-08-27] MEDS ORDERED: ePHEDrine sulfate 50 MG/ML AMP IV PRN (17:28)
[2021-08-27] MEDS: CHOLECALCIFEROL 1,000 UNITS 25 MCG TAB PO SCH (17:30)
[2021-08-27] MEDS: LEVOTHYROXINE SODIUM 75 MCG TABLET PO SCH (17:31)
[2021-08-27] MEDS: PRAVASTATIN SOD 20 MG TAB PO SCH (17:31)
[2021-08-27] MEDS: CYANOCOBALAMIN (B-12) 500 MCG TABLET PO SCH (17:31)
[2021-08-27] MEDS: cefTRIAXone SODIUM 1,000 MG in DEXTROSE 5% 50 ML IV SCH (17:33)
[2021-08-27] MEDS ORDERED: PROPOFOL IV EMULSION 10 MG/ML 20 ML VIAL IV ONE (17:42)
--- NOTE | 2021-08-27 18:22 | GI REPORT ---
Patient Name: Ely Ramsey Procedure Date: 08/27/2021 3:01 PM Date of : 1950 Admit Type: Inpatient Age: 71 Gender: Female Attending MD: Lionel Cooper MD Procedure: Upper GI endoscopy Providers: Lionel Cooper MD Referring MD: Rhys Sousa Md Indications: Hematemesis, Melena, Suspected upper gastrointestinal bleeding Medicines: Monitored Anesthesia Care Complications: No immediate complications. Estimated Blood Loss: Estimated blood loss: none. Procedure: Pre-Anesthesia Assessment: - Prior to the procedure, a History and Physical was performed, and patient medications and allergies were reviewed. The patient is unable to give consent secondary to the patient being legally incompetent to consent. The risks and benefits of the procedure and the sedation options and risks were discussed with the patient's sister and guardian. All questions were answered and informed consent was obtained. Patient identification and proposed procedure were verified by the physician and the nurse in the pre-procedure area. Mental Status Examination: lethargic. Airway Examination: normal oropharyngeal airway and neck mobility. Respiratory Examination: clear to auscultation. CV Examination: systolic murmur. Prophylactic Antibiotics: The patient does not require prophylactic antibiotics. Prior Anticoagulants: The patient has taken no previous anticoagulant or antiplatelet agents except for aspirin. ASA Grade Assessment: III - A patient with severe systemic disease. After reviewing the risks and benefits, the patient was deemed in satisfactory condition to undergo the procedure. The anesthesia plan was to use monitored anesthesia care (MAC). Immediately prior to administration of medications, the patient was re-assessed for adequacy to receive sedatives. The heart rate, respiratory rate, oxygen saturations, blood pressure, adequacy of pulmonary ventilation, and response to care were monitored throughout the procedure. The physical status of the patient was re-assessed after the procedure. After obtaining informed consent, the endoscope was passed under direct vision. Throughout the procedure, the patient's blood pressure, pulse, and oxygen saturations were monitored continuously. The Endoscope was introduced through the mouth, and advanced to the second part of duodenum. The upper GI endoscopy was accomplished without difficulty. The patient tolerated the procedure well. Findings: The examined esophagus was normal. There is no endoscopic evidence of bleeding, mucosal abnormalities or varices in the entire esophagus. The Z-line was regular and was found 40 cm from the incisors. One non-bleeding cratered gastric ulcer with pigmented material was found in the gastric antrum. The lesion was 12 mm in largest dimension. No biopsies or other specimens were collected for this exam. One non-bleeding linear and superficial gastric ulcer with no stigmata of bleeding was found in the prepyloric region of the stomach. The lesion was 7 mm in largest dimension. There is no endoscopic evidence of bleeding in the entire examined stomach. The examined duodenum was normal. Impression: - Normal esophagus. - Z-line regular, 40 cm from the incisors. - Non-bleeding gastric ulcer with pigmented material. No specimens collected. - Non-bleeding gastric ulcer with no stigmata of bleeding. - Normal examined duodenum. Recommendation: - Return patient to [facility] for ongoing care. - NPO. - The patient has taken no previous aspirin or NSAID medications. - Use a proton pump inhibitor IV. MD Lionel Millan MD 08/27/2021 6:22:47 PM This report has been signed electronically. Note Initiated On: 08/27/2021 3:01 PM Number of Addenda: 0 I attest to the content of the Intraoperative Record and orders documented therein, exceptions below {[id number]}
--- NOTE | 2021-08-27 18:31 | Post Operative Brief Note ---
Immediate Post Op Note v1 Date of Surgery August 27, 2021 Pre & Post Diagnosis Operation Date: 08/27/21 17:10 Pre-Op Diagnosis: Gastrointestinal bleed Post-Op Diagnosis: Gastric Ulcers I identified the patient and participated in the time-out.: Yes Procedure Operation Date: 08/27/21 17:10 Actual Procedures p Esophagogastroduodenoscopy - Lioenl Cooper MD Surgeon Lionel Cooper MD It Manager none Estimated Blood Loss 0 Findings Consistent with Post-Op Diagnosis Large 1 cm diameter round gastric antral ulcer with flat brown spot at ulcer base, not bleeding. Another small linear stellate shallow prepyloric gastric ulcer with no stigmata. No blood seen in the upper GI tract. Rebleeding risk is low to moderate in this case. Continue IV PPI, avoid aspirin and all other NSAIDs. When fully awake can resume diet with clear liquids. Continue observation for bleeding. Complications no immediate complications
[2021-08-27] MEDS ORDERED: FUROSEMIDE 20 MG TAB PO PRN (18:52)
--- NOTE | 2021-08-27 19:08 | Anesthesiology Progress Note ---
Date of Service August 27, 2021 Anesthesia Post Procedure Vital Signs Vital Signs: Temp Pulse Pulse Pulse Resp BP BP 08/27/21 18:56 37.6 C H 84 18 08/27/21 18:35 37.1 C 87 20 08/27/21 18:25 90 25 H 08/27/21 18:16 37.2 C 97 H 19 08/27/21 16:54 37.7 C H 91 H 20 99/53 L 08/27/21 15:20 37.3 C 86 18 113/71 08/27/21 14:15 82 15 91/52 L 08/27/21 14:02 37.0 C 81 18 107/54 L 08/27/21 14:00 82 15 107/54 L 08/27/21 13:45 82 17 101/48 L 08/27/21 13:30 85 17 104/48 L 08/27/21 13:24 37 C 84 18 104/48 L 08/27/21 13:15 87 15 111/52 L 08/27/21 13:00 89 17 85/49 L 08/27/21 12:59 37.2 C 88 18 96/58 L 08/27/21 12:45 88 19 96/58 L 08/27/21 12:42 36.7 C 18 98/47 L 08/27/21 12:30 36.7 C 87 18 98/47 L 08/27/21 12:15 37.4 C 88 18 96/48 L 08/27/21 12:00 93 H 19 98/53 L 08/27/21 11:54 37.6 C H 92 H 21 98/55 L 08/27/21 11:45 36.7 C 92 H 22 113/53 L 08/27/21 11:30 38.3 C H 93 H 26 H 105/49 L 08/27/21 11:24 36.7 C 92 H 18 109/52 L 08/27/21 11:22 92 H 20 109/52 L 08/27/21 11:15 92 H 18 103/55 L 08/27/21 11:10 37.2 C 91 H 20 103/55 L 08/27/21 11:06 37.0 C 92 H 20 116/47 L 08/27/21 11:00 92 H 22 116/47 L 08/27/21 10:45 93 H 25 H 125/56 L 08/27/21 10:30 92 H 22 113/55 L 08/27/21 10:15 93 H 26 H 105/57 L 08/27/21 10:10 37.2 C 86 100/58 L 08/27/21 10:00 19 100/59 L 08/27/21 09:45 19 96/52 L 08/27/21 09:30 19 105/46 L 08/27/21 09:15 37.0 C 90 23 110/50 L 08/27/21 09:00 37.1 C 89 17 105/70 08/27/21 08:45 85 19 102/52 L 08/27/21 08:30 86 24 98/47 L 08/27/21 08:25 86 19 98/47 L 08/27/21 08:24 37.2 C 86 18 94/40 L 08/27/21 08:15 84 22 103/48 L 08/27/21 08:13 85 20 99/46 L 08/27/21 08:10 84 18 08/27/21 08:04 37.2 C 84 18 101/36 L 08/27/21 08:00 81 19 101/36 L 08/27/21 07:50 83 20 08/27/21 07:45 08/27/21 07:40 81 20 08/27/21 07:30 81 21 85/61 L 08/27/21 07:20 84 19 08/27/21 07:10 80 20 08/27/21 07:00 78 22 107/46 L 08/27/21 06:50 76 24 08/27/21 06:40 78 27 H 08/27/21 06:30 78 25 H 102/49 L 08/27/21 06:20 77 20 08/27/21 06:18 79 18 102/65 08/27/21 06:10 88 20 08/27/21 06:03 74 19 08/27/21 05:45 36.9 C 78 20 102/65 BP Pulse Ox 08/27/21 18:56 100/63 95 08/27/21 18:35 106/57 L 93 08/27/21 18:25 111/49 L 92 08/27/21 18:16 118/65 100 08/27/21 16:54 96 08/27/21 15:20 96 08/27/21 14:15 90 08/27/21 14:02 94 08/27/21 14:00 98 08/27/21 13:45 91 08/27/21 13:30 97 08/27/21 13:24 98 08/27/21 13:15 96 08/27/21 13:00 92 08/27/21 12:59 96 08/27/21 12:45 94 08/27/21 12:42 96 08/27/21 12:30 95 08/27/21 12:15 96 08/27/21 12:00 97 08/27/21 11:54 96 08/27/21 11:45 95 08/27/21 11:30 94 08/27/21 11:24 96 08/27/21 11:22 96 08/27/21 11:15 95 08/27/21 11:10 96 08/27/21 11:06 94 08/27/21 11:00 95 08/27/21 10:45 08/27/21 10:30 08/27/21 10:15 08/27/21 10:10 96 08/27/21 10:00 95 08/27/21 09:45 95 08/27/21 09:30 95 08/27/21 09:15 96 08/27/21 09:00 98 08/27/21 08:45 95 08/27/21 08:30 98 08/27/21 08:25 08/27/21 08:24 96 08/27/21 08:15 95 08/27/21 08:13 96 08/27/21 08:10 96 08/27/21 08:04 08/27/21 08:00 97 08/27/21 07:50 93 08/27/21 07:45 96 08/27/21 07:40 94 08/27/21 07:30 95 08/27/21 07:20 94 08/27/21 07:10 100 08/27/21 07:00 98 08/27/21 06:50 96 08/27/21 06:40 96 08/27/21 06:30 95 08/27/21 06:20 92 08/27/21 06:18 92 08/27/21 06:10 08/27/21 06:03 08/27/21 05:45 94 Pain Intensity Face: Pain Intensity: 5 Transfer of Care Handoff Completed per policy Notes Mental Status: alert / awake / arousable and participated in evaluation Patient Amnestic to Procedure: Yes Nausea / Vomiting: adequately controlled Pain: adequately controlled Airway Patency, RR, SpO2: stable & adequate BP & HR: stable & adequate Hydration State: stable & adequate Anesthetic Complications: no major complications apparent and Pt Satisfied with anesthetic care
[2021-08-27] MEDS: METOPROLOL SUCC 25MG EXT REL TAB PO SCH (20:19)
[2021-08-27] MEDS: ESCITALOPRAM OXALATE 20 MG TAB PO SCH (20:19)
[2021-08-27] MEDS: MELATONIN 3 MG TAB PO SCH (20:19)
[2021-08-27] MEDS: DOCUSATE SODIUM 100 MG CAP PO SCH (20:19)
[2021-08-27] MEDS: SENNA 8.6 MG TAB PO SCH (20:20)
[2021-08-27] MEDS ORDERED: ASPIRIN 81 MG ECTAB PO SCH (21:00)
[2021-08-27 21:42] LABS: Hematocrit (blood only) 19.1 % (37-47); Hemoglobin 6.5 g/dL (12.0-16.0)
--- NOTE | 2021-08-27 22:09 | Communication Note ---
Date of Service: August 27, 2021 Repeat Hb at 9pm dropped to 6s. Transfusing 2 units. EGD w/o source of bleed. Source of bleed unknown; continue workup. per admission notes, had bloody emesis and bloody stool in outpatient setting. Hx of difficult colonoscopy in past.
[2021-08-28] MEDS: PANTOprazole 40 MG in DEXTROSE 5% 100 ML IV SCH ×5 (00:17→18:35)
[2021-08-28] MEDS ORDERED: ACETAMINOPHEN 1000 MG/100 ML IV IV ONE (00:59)
[2021-08-28] MEDS: LEVOTHYROXINE SODIUM 75 MCG TABLET PO SCH (05:37)
[2021-08-28 06:31] LABS: Basophils # (auto) 0.01 K/uL (0-0.2); Basophils % (auto) 0.1 %; Eosinophils # (auto) 0.11 K/uL (0-0.5); Eosinophils % (auto) 0.9 %; Hematocrit (blood only) 32.6 % (37-47); Hemoglobin 10.9 g/dL (12.0-16.0); Immature Granulocytes # (auto) 0.06 K/uL (0.00-0.02); Immature Granulocytes % (auto) 0.5 %; Lymphocytes # (auto) 1.58 K/uL (1.2-3.4); Lymphocytes % (auto) 12.4 %; Mean Corpuscular Hemoglobin 30.4 pg (25-34); Mean Corpuscular Hgb Conc 33.4 g/dL (32-36); Mean Corpuscular Volume 91.1 fL (80-100); Mean Platelet Volume 9.2 fL (7.4-10.4); Monocytes # (auto) 1.09 K/uL (0.11-0.59); Monocytes % (auto) 8.5 %; Neutrophils % (auto) 77.6 %; Platelet Count 108 K/uL (130-400); RDW Coefficient of Variation 15.9 % (11.5-14.5); RDW Standard Deviation 52.4 fL (36.4-46.3); Red Blood Count 3.58 M/uL (4.2-5.4); White Blood Count 12.75 K/uL (4.8-10.8)
[2021-08-28 06:53] LABS: Albumin Globulin Ratio 1.6 (0.9-2); Albumin Level 2.8 gm/dl (3.4-5.0); BUN Creatinine Ratio 36.6 (10-20); Bilirubin,Total 1.1 mg/dl (0.2-1.0); Calcium 7.4 mg/dl (8.5-10.1); Creatinine Clr Calc Pharmacy 57.5 ml/min; Est GFR (Non-African American) 86.3 ml/min; Globulin 1.8 gm/dl (2.5-4.0); Potassium 3.6 mmol/L (3.5-5.1); Total Protein 4.6 gm/dl (6.0-8.3)
[2021-08-28] MEDS ORDERED: [UNRECOGNIZED DRUG - OTHER] PO SCH (09:00)
[2021-08-28] MEDS: CHOLECALCIFEROL 1,000 UNITS 25 MCG TAB PO SCH (09:52)
[2021-08-28] MEDS: CYANOCOBALAMIN (B-12) 500 MCG TABLET PO SCH (09:52)
[2021-08-28] MEDS: PRAVASTATIN SOD 20 MG TAB PO SCH (09:53)
--- NOTE | 2021-08-28 11:24 | Hospitalist Progress Note ---
Date of Service August 28, 2021 Assessment & Plan (1) GI bleed: Plan: Ely is a 71-year-old female [place] [facility] resident who presents by EMS after a fall out of bed. Patient was found vomiting blood with a bloody bowel movement with blood pressure of 70s over 40s in the ER on arrival --> 100 systolic. 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 History is limited due to cognitive status and history of Down syndrome. Acute blood loss anemia 2/2 GI bleed Admitting hemoglobin 6.4 Creatinine 0.69, baseline normal Fecal occult blood positive COVID-negative - Rocephin for GIB ppx Status post 2 days of blood with improvement in vitals from 70/40s to 100s GI consulted by ER. Discussed by ER briefly with Dr. River who recommended consultation for [facility]. Notified on follow-up that case has been recommended for [facility] service, consult placed PPI bolus given in ER, continued on PPI drip Aspirin held Initial hypotension improved with blood pressure to 100-110 and without tachycardia following blood xfusion initiation Borderline low EF, cautious fluids and will follow for Lasix as needed Per patient and sister at bedside patient was seen at [facility] for a hiatal hernia repair many years ago, has not been seen by GI here. They think she may have had some GERD episodes in the past. Takes aspirin, not on NSAIDs. Following 2 units transfusion patient with appropriate rise from 6.4-8.9 Subsequently decreased on recheck to 6.5, transfused 2 units, with more than appropriate rise to 10.9 Hemodynamically stable without tachycardia morning of 08/27, blood pressure remains borderline low intermittently EGD: Normal esophagus, no endoscopic evidence of bleeding, mucosal abnormalities, or varices in the esophagus. In the stomach 1 nonbleeding cratered gastric ulcer with pigmented material was seen, 1 nonbleeding linear and superficial gastric ulcer with no stigmata of bleeding, and no endoscopic evidence of active bleeding in the stomach, and normal duodenum. Recommended to continue PPI IV, and resume clear liquids with continued observation. Rebleeding risk estimated low to moderate. Avoid aspirin and NSAIDs. Appreciate GI recommendations above. Patient without evidence of bleeding in the stomach/esophagus/duodenum. Continue to follow H&H. If stable anticipate progression towards discharge and outpt followup with ?pill endoscopy. If again drops will transfuse as indicated, --> require tagged bleeding study versus transfer for push endoscopy vsinterventional radiology at that point. Given hematemesis and melena rather than bright red blood per rectum suspect upper/mid rather than lower GI bleed. Colonoscopy technically challenging and unable to be completed in the past per pt family - Of note family reported hiatal hernia repair in distant past, no endoscopic evidence on EGD - H&H spontaneously uptrending on recheck - Decent UOP this AM per nursing report, oral hydration encouraged Somnolence, Fall. Suspect concussion - Pt reports a fall with a R Cheek/chin contusion - CT-H: 1. No acute intracerebral pathology. 2. Mild cerebral cortical atrophy and remote small vessel disease. - R nystagmus on lateral gaze, exam somewhat limited by engagement - Suspect pt sustained a concussion, imaging with naf and reportedly new nystagus and fatigue not significantly improved with hgb improvement. Symptomatic rest. Will require regular followup. Depression/anxiety Continue Lexapro 20 mg p.o. at bedtime CAD with history of heart failure ejection fraction 50% Home Lasix held for hypotension and bleeding Metoprolol 12.5 p.o. every afternoon home dose held for acute hypotension Aspirin held in the setting of acute bleeding Denies chest pain at time of assessment EKG: NSR without acute ST segment changes on admission Hypothyroidism Synthroid 75 mcg p.o. every morning TSH wnl Hyperlipidemia Pravastatin 20 mg p.o. every morning DVT prophylaxis: SCDs, pharmacal prophylaxis contraindicated in the setting of bleed Diet: N.p.o. Disposition: PCU, pending GI eval for EGD CODE STATUS: (2) Fall: (3) Upper gastrointestinal hemorrhage: (4) Anemia: (5) Thrombocytopenia: (6) Leukopenia: (7) Hypothyroidism: (8) Down syndrome: (9) CAD (coronary artery disease): Admission and Anticipated Discharge Date Admission Date: August 27, 2021 Subjective Awakens easily, but remains somnolent. Very drowsy per nurse and sister more so than normal. Patient denies pain, no further episodes of hematemesis. Denies shortness of breath, chest pain, chest pressure. Discourse somewhat limited by intellectual disability and fatigue. Denies abdominal tenderness. Review of Systems Review of Systems: All systems reviewed & are unremarkable except as noted in Subjective (Somewhat limited by cognitive status and fatigue) Physical Exam Physical Exam: General: Awakens easily. NAD. Cooperative. HEENT: Atraumatic, normocephalic. Vision grossly intact. Very [place]. Pupils equal and reactive to light. R nystagmus on lateral gaze. R lateral cheek contusion without crepitus, contusion under chin without crepitus. L Strabismus present, baseline. Pulm: CTAB A&P. -wheezes, -rales, -rhonchi. Symmetrical chest rise. No increased work of breathing. No respiratory distress. Cardiac: RRR, -mrg. Radial pulses intact and symmetrical. Abdominal: Nontender, nondistended, soft. BS present. Results & Data Results & Data ([facility]) Vital Signs (Past 12 Hours) Vital Signs Temp Pulse Pulse Resp BP BP Pulse Ox 08/28/21 09:00 37.2 C 90 18 99/62 L 90 08/28/21 07:00 76 08/28/21 05:01 36.8 C 78 20 100/56 L 91 08/28/21 04:13 36.9 C 78 104/60 90 08/28/21 03:13 36.8 C 80 20 93/52 L 93 08/28/21 02:58 36.9 C 78 20 123/61 95 08/28/21 02:43 36.9 C 78 20 123/61 95 08/28/21 02:32 36.8 C 84 22 108/58 L 92 08/28/21 02:28 36.7 C 84 22 108/60 92 08/28/21 02:12 36.8 C 85 22 100/57 L 94 08/28/21 01:48 37 C 86 105/58 L 92 08/28/21 01:14 36.8 C 86 105/63 94 08/28/21 00:14 37.2 C 85 108/77 95 08/28/21 00:00 87 08/27/21 23:44 37.3 C 85 24 107/66 93 08/27/21 23:29 37 C 86 24 99/60 L 93 PG Care Time/CCT Total # of Minutes Spent Total Time Spent with Patient: Total time spent is greater than 50% in coordination of care (as documented) at patient's floor/unit and/or counseling patient: Coding Level of Care Code 75964 Subseq Hosp Care Lvl 3 Diagnoses GI bleed K92.2 Fall W19.XXXA Encounter type: initial encounter Upper gastrointestinal hemorrhage K92.2 Anemia D64.9 Anemia type: unspecified type Thrombocytopenia D69.6 Leukopenia D72.819 Hypothyroidism E03.9 Down syndrome Q90.9 CAD (coronary artery disease) I25.10 (1) Anemia Anemia type: unspecified type Qualified Code(s): D64.9 - Anemia, unspecified (2) Fall Encounter type: initial encounter Qualified Code(s): W19.XXXA - Unspecified fall, initial encounter
--- NOTE | 2021-08-28 11:35 | Gastroenterology Progress Note ---
Date of Service August 28, 2021 Assessment & Plan (1) Gastric ulcer with hemorrhage: (2) Upper gastrointestinal hemorrhage: (3) Acute blood loss anemia: (4) Down syndrome: Plan: Upper GI bleed resolved, with low to intermediate rebleeding risk from gastric ulcer based on endoscopic findings. Recommend advance diet as tolerated and switch PPI from IV to BID oral administration, hold aspirin and if antiplatelet agent is necessary, consider using clopidogrel instead, starting after hospital discharge. Continue PPI as outpatient and repeat EGD in 4-6 months to document ulcer healing. Regarding hiatal hernia repair in 2010, I did not see evidence of a fundopl ication repair on endoscopic examination of the stomach yesterday, nor did I see a recurrent hernia. Regarding colonoscopy examination, the source of bleeding was in the upper GI tract and colonoscopy is not indicated at this time. Regarding future colon cancer screening examinations, the incidence of colon cancer is very low in individuals with Down syndrome. I recommend screening with Cologuard stool testing (not at this time as she has blood in the GI tract and the test will be positive), colonoscopy only if the stool testing is positive. Admission and Anticipated Discharge Date Admission Date: August 27, 2021 Subjective Ms. Ramsey is more alert and responsive this morning, good eye contact and she is responding to questions with nodding, not speaking, and she cooperates with the physical examination. Staff reports there has been no physical evidence of any further GI bleeding following endoscopy yesterday. She received additional 2 units of packed red blood cells overnight (total of 4 units) and Hgb > 10 gm, HCT > 32% this morning. Review of Systems Review of Systems: Unobtainable due to cognitive status Physical Exam Constitutional: + altered mental status, + behavioral limitations, cooperative, comfortable and + lethargic; not in distress Respiratory: normal respiratory effort, lungs clear to auscultation Cardiovascular: Rate/Rhythm: regular rate and regular rhythm Heart Sounds: + murmur Gastrointestinal (Abdomen): normal bowel sounds, soft, nontender, no hepatosplenomegaly Neurologic: moves all extremities and awake Results & Data ([facility]) Vital Signs (Past 12 Hours) Vital Signs Temp Pulse Pulse Resp BP BP Pulse Ox 08/28/21 09:00 37.2 C 90 18 99/62 L 90 08/28/21 07:00 76 08/28/21 05:01 36.8 C 78 20 100/56 L 91 06/25/22 04:13 36.9 C 78 104/60 90 08/28/21 03:13 36.8 C 80 20 93/52 L 93 08/28/21 02:58 36.9 C 78 20 123/61 95 08/28/21 02:43 36.9 C 78 20 123/61 95 08/28/21 02:32 36.8 C 84 22 108/58 L 92 08/28/21 02:28 36.7 C 84 22 108/60 92 08/28/21 02:12 36.8 C 85 22 100/57 L 94 08/28/21 01:48 37 C 86 105/58 L 92 08/28/21 01:14 36.8 C 86 105/63 94 08/28/21 00:14 37.2 C 85 108/77 95 08/28/21 00:00 87 08/27/21 23:44 37.3 C 85 24 107/66 93 08/27/21 23:29 37 C 86 24 99/60 L 93 Laboratory Results 08/28/21 08/28/21 08/28/21 Range/Units 05:12 05:12 05:12 WBC 12.75 H (4.8-10.8) K/uL RBC 3.58 L (4.2-5.4) M/uL Hgb 10.9 L D (12.0-16.0) g/dL Hct 32.6 L (37-47) % MCV 91.1 (80-100) fL MCH 30.4 (25-34) pg MCHC 33.4 (32-36) g/dL RDW Std Deviation 52.4 H (36.4-46.3) fL RDW Coeff of Glenn 15.9 H (11.5-14.5) % Plt Count 108 L (130-400) K/uL MPV 9.2 (7.4-10.4) fL Immature Gran % (Auto) 0.5 % Neut % (Auto) 77.6 % Lymph % (Auto) 12.4 % [place] % (Auto) 8.5 % Eos % (Auto) 0.9 % Baso % (Auto) 0.1 % Neut # (Auto) 9.90 H (1.4-6.5) K/uL Lymph # (Auto) 1.58 (1.2-3.4) K/uL [place] # (Auto) 1.09 H (0.11-0.59) K/uL Eos # (Auto) 0.11 (0-0.5) K/uL Baso # (Auto) 0.01 (0-0.2) K/uL Immature Gran # (Auto) 0.06 H (0.00-0.02) K/uL Sodium 145 (136-145) mmol/L Potassium 3.6 (3.5-5.1) mmol/L Chloride 114 H (98-107) mmol/L Carbon Dioxide 29 (21-32) mmol/L Anion Gap 2 L (3-11) BUN 26 H D (6-23) mg/dl Creatinine 0.71 (0.6-1.2) mg/dl Est Cr Clr Drug Dosing 57.5 ml/min Est GFR ( Amer) 100.0 ml/min Est GFR (Non-Af Amer) 86.3 ml/min BUN/Creatinine Ratio 36.6 H (10-20) Glucose 104 H (70-99(Fasting)) mg/dl Calcium 7.4 L (8.5-10.1) mg/dl Total Bilirubin 1.1 H D (0.2-1.0) mg/dl AST 14 (13-39) U/L ALT 8 (7-52) U/L Alkaline Phosphatase 35 (34-104) U/L Total Protein 4.6 L (6.0-8.3) gm/dl Albumin 2.8 L (3.4-5.0) gm/dl Globulin 1.8 L (2.5-4.0) gm/dl Albumin/Globulin Ratio 1.6 (0.9-2) Hepatitis C Ab (EIA) Pending Hep C Ab Signal/Cutoff Pending Blood Type Antibody Screen Crossmatch 08/27/21 08/27/21 08/27/21 Range/Units 21:16 16:08 06:10 WBC (4.8-10.8) K/uL RBC (4.2-5.4) M/uL Hgb 6.5 L* 8.9 L (12.0-16.0) g/dL Hct 19.1 L* 26.6 L (37-47) % MCV (80-100) fL MCH (25-34) pg MCHC (32-36) g/dL RDW Std Deviation (36.4-46.3) fL RDW Coeff of [place] (11.5-14.5) % Plt Count (130-400) K/uL MPV (7.4-10.4) fL Immature Gran % (Auto) % Neut % (Auto) % Lymph % (Auto) % [place] % (Auto) % Eos % (Auto) % Baso % (Auto) % Neut # (Auto) (1.4-6.5) K/uL Lymph # (Auto) (1.2-3.4) K/uL [place] # (Auto) (0.11-0.59) K/uL Eos # (Auto) (0-0.5) K/uL Baso # (Auto) (0-0.2) K/uL Immature Gran # (Auto) (0.00-0.02) K/uL Sodium (136-145) mmol/L Potassium (3.5-5.1) mmol/L Chloride (98-107) mmol/L Carbon Dioxide (21-32) mmol/L Anion Gap (3-11) BUN (6-23) mg/dl Creatinine (0.6-1.2) mg/dl Est Cr Clr Drug Dosing ml/min Est GFR ( Amer) ml/min Est GFR (Non-Af Amer) ml/min BUN/Creatinine Ratio (10-20) Glucose (70-99(Fasting)) mg/dl Calcium (8.5-10.1) mg/dl Total Bilirubin (0.2-1.0) mg/dl AST (13-39) U/L ALT (7-52) U/L Alkaline Phosphatase (34-104) U/L Total Protein (6.0-8.3) gm/dl Albumin (3.4-5.0) gm/dl Globulin (2.5-4.0) gm/dl Albumin/Globulin Ratio (0.9-2) Hepatitis C Ab (EIA) Hep C Ab Signal/Cutoff Blood Type O Positive Antibody Screen NEGATIVE Crossmatch See Detail
[2021-08-28 12:25] LABS: Hematocrit (blood only) 33.6 % (37-47); Hemoglobin 11.3 g/dL (12.0-16.0)
[2021-08-28] MEDS: cefTRIAXone SODIUM 1,000 MG in DEXTROSE 5% 50 ML IV SCH (13:41)
[2021-08-28 18:37] LABS: Hemoglobin 10.8 g/dL (12.0-16.0)
[2021-08-28 18:38] LABS: Hematocrit (blood only) 32.2 % (37-47)
[2021-08-28] MEDS: PANTOprazole 40 MG TAB PO SCH (20:37)
[2021-08-28] MEDS: METOPROLOL SUCC 25MG EXT REL TAB PO SCH (20:37)
[2021-08-28] MEDS: MELATONIN 3 MG TAB PO SCH (20:37)
[2021-08-28] MEDS: ESCITALOPRAM OXALATE 20 MG TAB PO SCH (20:37)
[2021-08-28] MEDS: SENNA 8.6 MG TAB PO SCH (20:37)
[2021-08-28] MEDS: DOCUSATE SODIUM 100 MG CAP PO SCH (20:38)
[2021-08-29 01:25] LABS: Hematocrit (blood only) 30.3 % (37-47); Hemoglobin 10.3 g/dL (12.0-16.0)
[2021-08-29] MEDS: LEVOTHYROXINE SODIUM 75 MCG TABLET PO SCH (05:30)
[2021-08-29 08:41] LABS: Basophils # (auto) 0.02 K/uL (0-0.2); Basophils % (auto) 0.2 %; Eosinophils # (auto) 0.23 K/uL (0-0.5); Eosinophils % (auto) 2.6 %; Hemoglobin 11.2 g/dL (12.0-16.0); Immature Granulocytes # (auto) 0.05 K/uL (0.00-0.02); Immature Granulocytes % (auto) 0.6 %; Lymphocytes # (auto) 1.37 K/uL (1.2-3.4); Lymphocytes % (auto) 15.4 %; Mean Corpuscular Hemoglobin 31.5 pg (25-34); Mean Corpuscular Hgb Conc 33.9 g/dL (32-36); Mean Corpuscular Volume 92.7 fL (80-100); Mean Platelet Volume 9.2 fL (7.4-10.4); Monocytes # (auto) 0.75 K/uL (0.11-0.59); Monocytes % (auto) 8.4 %; Neutrophils # (auto) 6.47 K/uL (1.4-6.5); Neutrophils % (auto) 72.8 %; Platelet Count 116 K/uL (130-400); RDW Coefficient of Variation 15.7 % (11.5-14.5); RDW Standard Deviation 52.7 fL (36.4-46.3); Red Blood Count 3.56 M/uL (4.2-5.4); White Blood Count 8.89 K/uL (4.8-10.8)
[2021-08-29 09:01] LABS: Albumin Globulin Ratio 1.5 (0.9-2); Bilirubin,Total 0.7 mg/dl (0.2-1.0); Calcium 7.8 mg/dl (8.5-10.1); Creatinine Clr Calc Pharmacy 64.7 ml/min; Est GFR (African American) 105.9 ml/min; Est GFR (Non-African American) 91.4 ml/min; Potassium 3.4 mmol/L (3.5-5.1)
[2021-08-29] MEDS: OMEGA-3 (PURIFIED FISH OIL) 1 GM CAP PO SCH (09:06)
[2021-08-29] MEDS: PANTOprazole 40 MG TAB PO SCH ×2 (09:06→20:38)
[2021-08-29] MEDS: CHOLECALCIFEROL 1,000 UNITS 25 MCG TAB PO SCH (09:59)
[2021-08-29] MEDS: CYANOCOBALAMIN (B-12) 500 MCG TABLET PO SCH (09:59)
[2021-08-29] MEDS: PRAVASTATIN SOD 20 MG TAB PO SCH (10:00)
--- NOTE | 2021-08-29 12:05 | Gastroenterology Progress Note ---
Date of Service August 29, 2021 Assessment & Plan (1) Gastric ulcer with hemorrhage: (2) Upper gastrointestinal hemorrhage: (3) Acute blood loss anemia: (4) Down syndrome: Plan: Upper GI bleed resolved, with low to intermediate rebleeding risk from gastric ulcer based on endoscopic findings. Recommend advance diet as tolerated and switch PPI from IV to BID oral administration, hold aspirin and if antiplatelet agent is necessary, consider using clopidogrel instead, starting after hospital discharge. Continue PPI as outpatient and repeat EGD in 4-6 months to document ulcer healing. Regarding hiatal hernia repair in 2010, I did not see evidence of a fundopl ication repair on endoscopic examination of the stomach yesterday, nor did I see a recurrent hernia. Regarding colonoscopy examination, the source of bleeding was in the upper GI tract and colonoscopy is not indicated at this time. Regarding future colon cancer screening examinations, the incidence of colon cancer is very low in individuals with Down syndrome. I recommend screening with Cologuard stool testing (not at this time as she has blood in the GI tract and the test will be positive), colonoscopy only if the stool testing is positive. Update 08-29-21: I do not recommend any changes to the above plan of care. GI service will "sign off" at this time, we will consult again as requested by the primary care team As the supervising physician I have spent __15___ minutes of discrete time performing the activities of this consultation which include but are not limited to: 1. Review of past and current medical records 2. Patient interview, physical examination, discussion of the assessment and plan of care with the patient and family if present 3. Documentation of the consultation in the medical record including orders and discussion of the plan of care with members of the healthcare team Admission and Anticipated Discharge Date Admission Date: August 27, 2021 Subjective Ms. Ramsey is fully awake, responsive, and conversant today, back to baseline mental status. There has been no physical evidence of GI bleeding. Review of Systems Review of Systems: Unobtainable due to cognitive status Physical Exam Constitutional: + altered mental status, cooperative and comfortable; not in distress Respiratory: normal respiratory effort, lungs clear to auscultation Cardiovascular: Rate/Rhythm: regular rate and regular rhythm Heart Sounds: + murmur Gastrointestinal (Abdomen): normal bowel sounds, soft, nontender, no hepatosplenomegaly Neurologic: moves all extremities and awake Results & Data ([place]) Vital Signs (Past 12 Hours) Vital Signs Temp Pulse Resp BP Pulse Ox 08/29/21 11:44 36.8 C 74 107/63 96 08/29/21 08:11 36.8 C 77 18 106/50 L 92 08/29/21 03:48 36.6 C 79 16 120/71 95 Laboratory Results 08/29/21 08/29/21 08/29/21 Range/Units 08:13 08:13 00:55 WBC 8.89 (4.8-10.8) K/uL RBC 3.56 L (4.2-5.4) M/uL Hgb 11.2 L 10.3 L (12.0-16.0) g/dL Hct 33.0 L 30.3 L (37-47) % MCV 92.7 (80-100) fL MCH 31.5 (25-34) pg MCHC 33.9 (32-36) g/dL RDW Std Deviation 52.7 H (36.4-46.3) fL RDW Coeff of Glenn 15.7 H (11.5-14.5) % Plt Count 116 L (130-400) K/uL MPV 9.2 (7.4-10.4) fL Immature Gran % (Auto) 0.6 % Neut % (Auto) 72.8 % Lymph % (Auto) 15.4 % [place] % (Auto) 8.4 % Eos % (Auto) 2.6 % Baso % (Auto) 0.2 % Neut # (Auto) 6.47 (1.4-6.5) K/uL Lymph # (Auto) 1.37 (1.2-3.4) K/uL [place] # (Auto) 0.75 H (0.11-0.59) K/uL Eos # (Auto) 0.23 (0-0.5) K/uL Baso # (Auto) 0.02 (0-0.2) K/uL Immature Gran # (Auto) 0.05 H (0.00-0.02) K/uL Sodium 143 (136-145) mmol/L Potassium 3.4 L (3.5-5.1) mmol/L Chloride 111 H (98-107) mmol/L Carbon Dioxide 29 (21-32) mmol/L Anion Gap 3 (3-11) BUN 13 (6-23) mg/dl Creatinine 0.62 (0.6-1.2) mg/dl Est Cr Clr Drug Dosing 64.7 ml/min Est GFR ( Amer) 105.9 ml/min Est GFR (Non-Af Amer) 91.4 ml/min BUN/Creatinine Ratio 21.0 H (10-20) Glucose 98 (70-99(Fasting)) mg/dl Calcium 7.8 L (8.5-10.1) mg/dl Total Bilirubin 0.7 (0.2-1.0) mg/dl AST 15 (13-39) U/L ALT 9 (7-52) U/L Alkaline Phosphatase 38 (34-104) U/L Total Protein 5.0 L (6.0-8.3) gm/dl Albumin 3.0 L (3.4-5.0) gm/dl Globulin 2.0 L (2.5-4.0) gm/dl Albumin/Globulin Ratio 1.5 (0.9-2) 08/28/21 08/28/21 Range/Units 18:15 11:55 WBC (4.8-10.8) K/uL RBC (4.2-5.4) M/uL Hgb 10.8 L 11.3 L (12.0-16.0) g/dL Hct 32.2 L 33.6 L (37-47) % MCV (80-100) fL MCH (25-34) pg MCHC (32-36) g/dL RDW Std Deviation (36.4-46.3) fL RDW Coeff of [place] (11.5-14.5) % Plt Count (130-400) K/uL MPV (7.4-10.4) fL Immature Gran % (Auto) % Neut % (Auto) % Lymph % (Auto) % [place] % (Auto) % Eos % (Auto) % Baso % (Auto) % Neut # (Auto) (1.4-6.5) K/uL Lymph # (Auto) (1.2-3.4) K/uL [place] # (Auto) (0.11-0.59) K/uL Eos # (Auto) (0-0.5) K/uL Baso # (Auto) (0-0.2) K/uL Immature Gran # (Auto) (0.00-0.02) K/uL Sodium (136-145) mmol/L Potassium (3.5-5.1) mmol/L Chloride (98-107) mmol/L Carbon Dioxide (21-32) mmol/L Anion Gap (3-11) BUN (6-23) mg/dl Creatinine (0.6-1.2) mg/dl Est Cr Clr Drug Dosing ml/min Est GFR ( Amer) ml/min Est GFR (Non-Af Amer) ml/min BUN/Creatinine Ratio (10-20) Glucose (70-99(Fasting)) mg/dl Calcium (8.5-10.1) mg/dl Total Bilirubin (0.2-1.0) mg/dl AST (13-39) U/L ALT (7-52) U/L Alkaline Phosphatase (34-104) U/L Total Protein (6.0-8.3) gm/dl Albumin (3.4-5.0) gm/dl Globulin (2.5-4.0) gm/dl Albumin/Globulin Ratio (0.9-2)
[2021-08-29] MEDS: POTASSIUM CHLORIDE CRTAB 20 MEQ TABCR PO SCH ×2 (13:35→20:37)
--- NOTE | 2021-08-29 13:35 | Hospitalist Progress Note ---
Date of Service August 29, 2021 Assessment & Plan (1) GI bleed: Plan: Ely is a 71-year-old female [facility] resident who presents by EMS after a fall out of bed. Patient was found vomiting blood with a bloody bowel movement with blood pressure of 70s over 40s in the ER on arrival --> 100 systolic. 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 History is limited due to cognitive status and history of Down syndrome. Acute blood loss anemia 2/2 GI bleed Admitting hemoglobin 6.4 Creatinine 0.69, baseline normal Fecal occult blood positive COVID-negative - Rocephin for GIB ppx discontinued Status post 2 days of blood with improvement in vitals from 70/40s to 100s GI consulted by ER. Discussed by ER briefly with Dr. River who recommended consultation for [facility]. Notified on follow-up that case has been recommended for [facility] service, consult placed PPI bolus given in ER, continued on PPI drip Aspirin held Initial hypotension improved with blood pressure to 100-110 and without tachycardia following blood xfusion initiation Borderline low EF, cautious fluids and will follow for Lasix as needed Per patient and sister at bedside patient was seen at [facility] for a hiatal hernia repair many years ago, has not been seen by GI here. They think she may have had some GERD episodes in the past. Takes aspirin, not on NSAIDs. Following 2 units transfusion patient with appropriate rise from 6.4-8.9 Subsequently decreased on recheck to 6.5, transfused 2 units, with more than appropriate rise to 10.9 Hemodynamically stable without tachycardia morning of 08/27, blood pressure remains borderline low intermittently EGD: Normal esophagus, no endoscopic evidence of bleeding, mucosal abnormalities, or varices in the esophagus. In the stomach 1 nonbleeding cratered gastric ulcer with pigmented material was seen, 1 nonbleeding linear and superficial gastric ulcer with no stigmata of bleeding, and no endoscopic evidence of active bleeding in the stomach, and normal duodenum. Recommended to continue PPI IV, and resume clear liquids with continued observation. Rebleeding risk estimated low to moderate. Avoid aspirin and NSAIDs. - Of note family reported hiatal hernia repair in distant past, no endoscopic evidence on EGD - H&H spontaneously uptrending on recheck -Patient is clinically improved, is pending evaluation with PT/OT.? Placement versus [facility] to [facility] based on evaluation. Appears medically stable at this time, will continue to trend CBC tonight and in the a.m. while waiting for recommendations If remaining stable recommend outpatient GI work-up. Can consider pill endoscopy for source of bleeding as outpatient, although? Ability to pass with her variant anatomy which was noted at attempted prior colonoscopy. Family is aware that patient could rebleed, although her risk is moderate to low for this at this time. If this occurs would have evaluation at tertiary care with IR available at that time, but may monitor for now. May have Cologuard outpatient follow-up for colon cancer screening as discussed, although low suspicion that this would be the cause of her symptoms. Somnolence, Fall. Suspect concussion - Pt reports a fall with a R Cheek/chin contusion - CT-H: 1. No acute intracerebral pathology. 2. Mild cerebral cortical atrophy and remote small vessel disease. - R nystagmus on lateral gaze, exam somewhat limited by engagement - Suspect pt sustained a concussion, imaging with naf and reportedly new nystagus and fatigue not significantly improved with hgb improvement. Symptomatic rest. Energy, nystagmus, and general alertness greatly improved 08/29 and near baseline. Outpatient follow-up, no acute change in management at this time. Depression/anxiety Continue Lexapro 20 mg p.o. at bedtime CAD with history of heart failure ejection fraction 50% Home Lasix held for hypotension and bleeding Metoprolol 12.5 p.o. every afternoon home dose held for acute hypotension Aspirin held in the setting of acute bleeding Denies chest pain at time of assessment EKG: NSR without acute ST segment changes on admission Hypothyroidism Synthroid 75 mcg p.o. every morning TSH wnl Hyperlipidemia Pravastatin 20 mg p.o. every morning DVT prophylaxis: SCDs, pharmacal prophylaxis contraindicated in the setting of bleed Diet: Progressed to full. Regular if tolerating well and no rebleeding. Potassium repleted. Disposition: PCU, pending GI eval for EGD CODE STATUS: (2) Fall: (3) Upper gastrointestinal hemorrhage: (4) Anemia: (5) Thrombocytopenia: (6) Leukopenia: (7) Hypothyroidism: (8) Down syndrome: (9) CAD (coronary artery disease): Admission and Anticipated Discharge Date Admission Date: August 27, 2021 Dilcia Graves is seen at the bedside this morning. She is much more alert, and denies acute complaints. She is seen with family at the bedside who reports she is very close to normal and her alertness and energy seems greatly improved from prior. She has not had any further episodes of melena or hematochezia. She denies lightheadedness, dizziness, chest pain, chest pressure. Is more attentive to exam today, and on neurological exam while she does have some strabismus in the right eye, her tracking is improved and without nystagmus today. PT/OT is pending, deferred yesterday as patient was still intermittently hypotensive and with concern for potential for ongoing bleeding. Review of Systems Review of Systems: All systems reviewed & are unremarkable except as noted in Subjective Physical Exam Physical Exam: General: Awakens easily. NAD. Cooperative. HEENT: Atraumatic, normocephalic. Vision grossly intact. Very [place]. Pupils equal and reactive to light. Right strabismus present which improves on lateral gaze. EOMI intact without nystagmus today. Pulm: CTAB A&P. -wheezes, -rales, -rhonchi. Symmetrical chest rise. No increased work of breathing. No respiratory distress. Cardiac: RRR, -mrg. Radial pulses intact and symmetrical. Abdominal: Nontender, nondistended, soft. BS present. Results & Data Results & Data ([facility]) Vital Signs (Past 12 Hours) Vital Signs Temp Pulse Resp BP Pulse Ox 08/29/21 11:44 36.8 C 74 107/63 96 08/29/21 08:11 36.8 C 77 18 106/50 L 92 08/29/21 03:48 36.6 C 79 16 120/71 95 PG Care Time/CCT Total # of Minutes Spent Total Time Spent with Patient: Total time spent is greater than 50% in coordination of care (as documented) at patient's floor/unit and/or counseling patient: Coding Level of Care Code 81337 Subseq Hosp Care Lvl 2 Diagnoses GI bleed K92.2 Fall W19.XXXA Encounter type: initial encounter Upper gastrointestinal hemorrhage K92.2 Anemia D64.9 Anemia type: unspecified type Thrombocytopenia D69.6 Leukopenia D72.819 Hypothyroidism E03.9 Down syndrome Q90.9 CAD (coronary artery disease) I25.10 (1) Fall Encounter type: initial encounter Qualified Code(s): W19.XXXA - Unspecified fall, initial encounter (2) Anemia Anemia type: unspecified type Qualified Code(s): D64.9 - Anemia, unspecified
[2021-08-29] MEDS: MELATONIN 3 MG TAB PO SCH (20:37)
[2021-08-29] MEDS: METOPROLOL SUCC 25MG EXT REL TAB PO SCH (20:37)
[2021-08-29] MEDS: DOCUSATE SODIUM 100 MG CAP PO SCH (20:37)
[2021-08-29] MEDS: SENNA 8.6 MG TAB PO SCH (20:38)
[2021-08-29] MEDS: ESCITALOPRAM OXALATE 20 MG TAB PO SCH (20:38)
[2021-08-30] MEDS: LEVOTHYROXINE SODIUM 75 MCG TABLET PO SCH (05:55)
[2021-08-30 08:52] LABS: Basophils # (auto) 0.01 K/uL (0-0.2); Basophils % (auto) 0.2 %; Eosinophils # (auto) 0.24 K/uL (0-0.5); Eosinophils % (auto) 3.6 %; Hematocrit (blood only) 36.1 % (37-47); Immature Granulocytes # (auto) 0.03 K/uL (0.00-0.02); Immature Granulocytes % (auto) 0.5 %; Lymphocytes % (auto) 21.2 %; Mean Corpuscular Hemoglobin 31.3 pg (25-34); Mean Corpuscular Hgb Conc 33.2 g/dL (32-36); Mean Corpuscular Volume 94.3 fL (80-100); Mean Platelet Volume 9.2 fL (7.4-10.4); Monocytes # (auto) 0.65 K/uL (0.11-0.59); Monocytes % (auto) 9.8 %; Neutrophils # (auto) 4.28 K/uL (1.4-6.5); Neutrophils % (auto) 64.7 %; Platelet Count 126 K/uL (130-400); RDW Coefficient of Variation 15.4 % (11.5-14.5); RDW Standard Deviation 51.7 fL (36.4-46.3); Red Blood Count 3.83 M/uL (4.2-5.4); White Blood Count 6.61 K/uL (4.8-10.8)
[2021-08-30 09:08] LABS: BUN Creatinine Ratio 15.9 (10-20); Creatinine Clr Calc Pharmacy 58.8 ml/min; Est GFR (African American) 102.2 ml/min; Est GFR (Non-African American) 88.2 ml/min
[2021-08-30] MEDS: CYANOCOBALAMIN (B-12) 500 MCG TABLET PO SCH (09:40)
[2021-08-30] MEDS: PRAVASTATIN SOD 20 MG TAB PO SCH (09:40)
[2021-08-30] MEDS: OMEGA-3 (PURIFIED FISH OIL) 1 GM CAP PO SCH (09:40)
[2021-08-30] MEDS: PANTOprazole 40 MG TAB PO SCH (09:40)
[2021-08-30] MEDS: POTASSIUM CHLORIDE CRTAB 20 MEQ TABCR PO SCH (09:41)
[2021-08-30] MEDS: CHOLECALCIFEROL 1,000 UNITS 25 MCG TAB PO SCH (09:41)
--- NOTE | 2021-08-30 12:06 | Discharge Summary ---
Date of Service August 30, 2021 Admission HPI Per Admitting Provider Ely is a 71-year-old female [facility] resident who presents by EMS after a fall out of bed. Patient was found vomiting blood with a bloody bowel movement with blood pressure of 70s over 40s in the ER on arrival --> 100 systolic. 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 History is limited due to cognitive status and history of Down syndrome. 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 [facility]. Sister Kate Salvador is present. #[phone]. Medical Power of Lehr Stripper Ely is normally 'very fast on her feet and has club feet so sometimes just goes and falls being clumbsy when not lifting her feet. Does do well with a walker.' Falls are usually once per year or so. Three falls in the last few months. Mechanical falls (fell ove a doorway bar, last one mechanical tripped over her foot). No lightheadedness, dizziness, syncope. No blurry vision. 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 Following outpatient opthamology with serial imaging q6m stable. Routine f/u with physicians. Are looking [facility]. CHF followed w/ Dr. Banegas, CAD. EF 50%, grade I diastolic dysfunction - Takes lasix. Unsure if diastolic or systolic. - No recent chest pain or chest discomfort - No history of heart attack/AK - Pt/sister unclear of ischemic history, HF details - ASA 81mg daily for CAD - take mtp as noted Initial labs: Hemoglobin 6.4, no leukocytosis, sodium 145, potassium 3.9, creatinine 0.68 with normal baseline, fecal occult blood positive, COVID-negative 40mg IV bolus PPI 2 units blood pended GI consulted prior to admit. Discussed with [facility] GI Dr. العراقي [facility] --> patient not accepted for [facility] and recommended to consult [facility] GI. Placed by ER, notified ~11am that pt needs to be under [facility] service. PSH consult placed. Medical History: Reviewed. No meds today Medications: Reviewed. NKDA. Surgical History: Reviewed. Thinks distant histerectomy, sister is not positive. Esophageal hital hernia repair 2010. Allergies: Reviewed Social History: No tobacco use, no alcohol use, no RR drug use, no MM use. Code Status: DNR/DNi Principal Diagnosis Acute UGIB Anemia Discharge Exam General: Awakens easily. NAD. Cooperative. HEENT: Atraumatic, normocephalic. Vision grossly intact. Very [place]. Pupils equal and reactive to light. Right strabismus present on midline gaze EOMI without nystagmus on discharge Pulm: CTAB A&P. -wheezes, -rales, -rhonchi. Symmetrical chest rise. No increased work of breathing. No respiratory distress. Cardiac: RRR, -mrg. Radial pulses intact and symmetrical. Abdominal: Nontender, nondistended, soft. BS present. Ext: Warm, dry. Cap refill brisk in thumbs bilaterally Discharge Data Allergies Allergy/AdvReac Type Severity Reaction Status Date / Time No Known Allergies Allergy Unverified 08/27/21 12:44 Consultations 08/27/21 08:03 ED Decision to Admit Stat 08/27/21 10:52 Consult Gastroenterology Stat Procedures Performed Operation Date: 08/27/21 17:10 Actual Procedures p Esophagogastroduodenoscopy - Lionel Cooper MD Ordered Studies 08/27/21 16:22 CT head/brain wo con Routine Hospital Course (1) GI bleed: Ely is a 71-year-old female [facility] resident who presents by EMS after a fall out of bed. Patient was found vomiting blood with a bloody bowel movement with blood pressure of 70s over 40s in the ER on arrival --> 100 systolic. 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 History is limited due to cognitive status and history of Down syndrome. During admission Ely required 2 units and then an additional 2 units of blood with subsequent stabilization of her hemoglobin. EGD did not show any obvious source of bleeding. Bleeding was likely mid/upper based on hematemesis and melena, patient has not had colonoscopy is able to be performed in the past due to difficulty with anatomy. Lower GI bleed was unlikely. Aspirin was held and patient did clinically stabilize. Was recommended that she be discharged, and have antiplatelet held for 1 week. If she remains stable at follow-up should resume Plavix instead of aspirin for her CAD. Should have outpatient follow-up to GI with consideration of pill endoscopy. When patient initially presented she did have a near syncopal episode and hit her face with a contusion appreciated on her cheek and jaw. CT head did not show any intracranial findings or fracture, however patient was very somnolent for 2 days consistent with a concussion. She had improved and near her baseline by time of discharge. To do as outpatient: 1. Outpatient follow-up to GI 2. Follow-up to PCP. Repeat CBC within 1 week. 3. Resume antiplatelet treatment with Plavix and stop aspirin when clinically stable at approximately 7 days 4. Continue PPI twice daily therapy for 6 weeks 5. Follow-up assessment of concussion, patient with significantly improved symptoms by time of discharge Acute blood loss anemia 2/2 GI bleed Admitting hemoglobin 6.4 Creatinine 0.69, baseline normal Fecal occult blood positive COVID-negative - Rocephin for GIB ppx discontinued Status post 2 days of blood with improvement in vitals from 70/40s to 100s GI consulted by ER. Discussed by ER briefly with Dr. River who recommended consultation for [facility]. Notified on follow-up that case has been recommended for [facility] service, consult placed PPI bolus given in ER, continued on PPI drip Aspirin held Initial hypotension improved with blood pressure to 100-110 and without tachycardia following blood xfusion initiation Borderline low EF, cautious fluids and will follow for Lasix as needed Per patient and sister at bedside patient was seen at [facility] for a hiatal hernia repair many years ago, has not been seen by GI here. They think she may have had some GERD episodes in the past. Takes aspirin, not on NSAIDs. Following 2 units transfusion patient with appropriate rise from 6.4-8.9 Subsequently decreased on recheck to 6.5, transfused 2 units, with more than appropriate rise to 10.9 Hemodynamically stable without tachycardia morning of 08/27, blood pressure remains borderline low intermittently EGD: Normal esophagus, no endoscopic evidence of bleeding, mucosal abnormalities, or varices in the esophagus. In the stomach 1 nonbleeding cratered gastric ulcer with pigmented material was seen, 1 nonbleeding linear and superficial gastric ulcer with no stigmata of bleeding, and no endoscopic evidence of active bleeding in the stomach, and normal duodenum. Recommended to continue PPI IV, and resume clear liquids with continued observation. Rebleeding risk estimated low to moderate. Avoid aspirin and NSAIDs. - Of note family reported hiatal hernia repair in distant past, no endoscopic evidence on EGD - H&H spontaneously uptrending on recheck and continues to uptrend through 08/30 PT/OT recommend return to the [facility] As remained clinically stable recommend outpatient GI work-up. Can consider pill endoscopy for source of bleeding as outpatient, although? Ability to pass with her variant anatomy which was noted at attempted prior colonoscopy. Family is aware that patient could rebleed, although her risk is moderate to low for this at this time. If this occurs would have evaluation at tertiary care with IR available at that time, but may monitor for now. May have Cologuard outpatient follow-up for colon cancer screening as discussed, although low [place] spicion that this would be the cause of her symptoms. Somnolence, Fall. Suspect concussion - Pt reports a fall with a R Cheek/chin contusion - CT-H: 1. No acute intracerebral pathology. 2. Mild cerebral cortical atrophy and remote small vessel disease. - R nystagmus on lateral gaze, exam somewhat limited by engagement - Suspect pt sustained a concussion, imaging with naf and reportedly new nystagus and fatigue not significantly improved with hgb improvement. Symptomatic rest. Energy, nystagmus, and general alertness greatly improved 08/29 and near baseline. Outpatient follow-up, no acute change in management at this time. Second hit precautions and counseling providing. Depression/anxiety Continue Lexapro 20 mg p.o. at bedtime CAD with history of heart failure ejection fraction 50% Home Lasix held for hypotension and bleeding Metoprolol 12.5 p.o. every afternoon home dose held for acute hypotension Aspirin held in the setting of acute bleeding Denies chest pain at time of assessment EKG: NSR without acute ST segment changes on admission Hypothyroidism Synthroid 75 mcg p.o. every morning TSH wnl Hyperlipidemia Pravastatin 20 mg p.o. every morning DVT prophylaxis: SCDs, pharmacal prophylaxis contraindicated in the setting of bleed Diet: Progressed to full. Regular if tolerating well and no rebleeding. Potassium repleted. Disposition: PCU, pending GI eval for EGD CODE STATUS: (2) Fall: (3) Upper gastrointestinal hemorrhage: (4) Anemia: (5) Thrombocytopenia: (6) Leukopenia: (7) Hypothyroidism: (8) Down syndrome: (9) CAD (coronary artery disease): Total Time Total Time Spent Total Time Spent (In Minutes): Time spend day of discharge 40 minutes including direct patient care, documentation, review of labs and images, and coordination of care. Discharge Plan Discharge Items Patient Disposition: Personal Residential Reason For Visit: GI BLEED ANEMIA Discharge Diagnosis: Acute upper GI bleed Activity: Per Instructions section Non-emergency contact: Primary Care Provider Call non-emergency contact if: you have any medication questions, your symptoms worsen and your pain is not controlled Follow-up/Referrals: Ely Kingston CRNP [Nurse Practitioner] - 09/17/21 7:40 am (Please follow up with RAJEEV Persaud on Monday09/17/21 at 7:40 am. Please arrive to the office at 7:25 am for your appointment. If you are unable to keep this appointment, please call the office to reschedule at [phone].) Lulu Harper MD [Primary Care Provider] - 08/31/21 12:50 pm (Please follow up with Dr. Harper on Monday08/31/21 at 12:50 pm. Please arrive to the office at 12:35 pm for your appointment. If you are unable to keep this appointment, please call the office to reschedule at [phone].) Lionel Cooper MD [Physician] - (Follow up appointment scheduled with RAJEEV Persaud.) Diet: Regular Addtl Attending Provider Instructions: You were seen in the hospital for an acute GI bleed requiring a total of 4 units of blood to be transfused. You received an antiacid medicine, Protonix, by IV drip which was converted to pills at time of discharge. You had an endoscopy procedure performed to look for signs of bleeding in your stomach and upper part of the intestine. While ulcers were seen, active source of bleeding or bleeding ulcer was seen at time of endoscopy. You are treated with the medications as noted and your aspirin was held, and your blood counts improved and then remained stable. Your case was discussed with GI who recommended continuing Protonix as noted below, switching aspirin to Plavix which can be restarted after 1 week, and outpatient follow-up. You have been prescribed a anti-acid medication, Protonix. Please take Protonix 40 mg by mouth twice daily. Please stop taking aspirin at this time. After 1 week if doing well you may start a medication called Plavix and take Plavix 75 mg daily. This will replace aspirin. Please discuss this medication with your primary care provider prior to starting. A follow-up appointment with your primary care provider is being scheduled for you. You should be seen within 1 week. You should have follow-up blood work ordered at that appointment (a CBC/H&H) to make sure your blood counts remained stable. A follow-up appointment with gastroenterology is being scheduled for you. Due to some abnormal anatomy a colonoscopy previously attempted was technically challenging and unable to be completed. As the source of your bleeding was identified, it is reasonable to discuss potential pill endoscopy to look for signs of bleeding in the intestines. If you remain stable your specialist may choose not to perform this test monitor instead if there is concern that it cannot be completed safely due to your anatomy or if they do not feel it is indicated based on follow-up. Please continue to monitor for signs of bleeding. This includes bright red blood in vomit/emesis, bright red blood in bowel movements, or black/tarry bowel movements. If you experience recurrent bleeding please seek prompt medical reevaluation in the emergency department. If you do experience rebleeding it is likely that the ER may need to pursue transfer to a tertiary care facility that has interventional radiology or additional services for evaluation of your bleed as it was not able to be visualized on endoscopy during this hospitalization. If you develop any new or worsening symptoms including fever, chills, sweats, chest pain, chest pressure, difficulty breathing, uncontrolled nausea/vomiting, rash, wheezing, passing out or nearly passing out, bleeding, black/bloody bowel movements, or other new or concerning symptoms please call your primary care physician, or call 911 for re-evaluation in the emergency department if you are very concerned. Pending Studies at Discharge: No Stand-Alone Forms: [employer], Smoking Cessation Skilled Items Patient informed of condition?: Yes DNR: Yes Discharge Level of Care: Other Communicable Disease: No Discharge Prognosis: Stable Lines: None Urinary Catheter: No Medications and DC Order Prescriptions: New pantoprazole 40 mg Tablet,Delayed Release (Dr/Ec) 40 mg PO BID Qty: 60 RF: 0 Continued pravastatin 20 mg tablet 20 mg PO QAM RF: 0 docusate sodium [Colace] 100 mg capsule 200 mg PO HS RF: 0 furosemide [Lasix] 20 mg tablet 20 mg PO 3XWK RF: 0 levothyroxine 75 mcg tablet 75 mcg PO QAM RF: 0 metoprolol succinate 25 mg tablet extended release 24 hr 12.5 mg PO QPM RF: 0 cholecalciferol (vitamin D3) [Vitamin D3] 25 mcg (1,000 unit) Tablet 1,000 unit PO QAM RF: 0 omega 8-hmt-pdg-fish oil [Fish Oil] 1,000 mg (120 mg-180 mg) Capsule 1 cap PO QAM RF: 0 sennosides [senna] 8.6 mg Tablet 8.6 mg PO HS RF: 0 melatonin 5 mg Tablet, Sublingual 5 mg SUBLINGUAL HS RF: 0 alendronate [Fosamax] 70 mg Tablet 70 mg PO WK RF: 0 cyanocobalamin (vitamin B-12) [Vitamin B-12] 250 mcg Tablet 250 mcg PO QAM RF: 0 escitalopram oxalate 20 mg tablet 20 mg PO HS RF: 0 L.acidoph,saliva-B.bif-S.therm [Acidophilus Probiotic Blend] 175 mg Capsule 1 cap PO QAM RF: 0 Premarin 0.625 mg/gram cream 0.625 mg vaginal 2XWK RF: 0 furosemide 20 mg Tablet 20 mg PO DAILY PRN (Reason: Weight Gain) RF: 0 Discontinued aspirin [Adult Aspirin Regimen] 81 mg tablet,delayed release (DR/EC) 81 mg PO HS RF: 0 Discharge Orders: Discharge Order (Routine); Ordered 08/30/21 Ordered By: Rhys Downing/Other Patient Handouts: GI Bleeding Causes and Tests, Understanding Gastric Ulcers Admission Data Admit Date/Time: 08/27/21 08:35 Attending Provider: Rhys Sousa Admit Provider: Rhys Sousa Primary Care Provider: Lulu Harper Other Providers: Rhys Sousa ; Lionel Cooper Other Interventions: Discharge Summary Assessment (RN) Last Done: 08/30/21 15:15 Coding Level of Care Code D/C DAY MANAGEMENT >30 MINS Diagnoses GI bleed K92.2 Fall W19.XXXA Encounter type: initial encounter Upper gastrointestinal hemorrhage K92.2 Anemia D64.9 Anemia type: unspecified type Thrombocytopenia D69.6 Leukopenia D72.819 Hypothyroidism E03.9 Down syndrome Q90.9 CAD (coronary artery disease) I25.10
[2021-08-31] MEDS ORDERED: ALENDRONATE SODIUM 70 MG TAB PO SCH (06:00)
[2021-08-31] MEDS ORDERED: PREMARIN VAG CRM 14 APPLN/30 GM TUBE PV SCH (09:00)
== END 2021-08-30 16:15 | disposition home or self-care (01) | DRG 378 ==
LOC: ED 05:52 → EDINP 08:35 → 2S 14:22

== ENCOUNTER 2023-11-21 11:41 | Inpatient (IN) ==
--- NOTE | 2023-11-21 12:13 | Emergency Department Note ---
Impression & Plan Hypoxia, Anemia, CHF (congestive heart failure), Somnolence, COVID-19 ED Provider Note NAME: AURELIO MCKENZIE AGE: 73 SEX: F : 1950 ARRIVES VIA: Ambulance INFORMANT: [Patient][ems, staff, nursing] ED PROVIDER(S): [Marck Smith MD] CHIEF COMPLAINT: Shortness of breath HISTORY OF PRESENT ILLNESS: The patient is a 73-year-old female who presents to the ER for shortness of breath and hypoxia. Her saturation was recorded in the low 80s outpatient. It was in the upper 80s as per our nursing staff. She was placed on 2 L of oxygen. The patient has been weak and tired and sleepy for around 2 or 3 days. She tested positive for COVID-19 yesterday. She took her first dose of Paxlovid this morning. The patient is part of the [facility]. She has Down syndrome. There is an outbreak of COVID at the [facility] currently. The patient does have a history of CHF, no diagnosed lung disease as per the staff with her. The patient had a hard time even taking her pills this morning, this is not like her. They were concerned about her mentation, she was sent for evaluation. PMHx/PSHx/Social Hx: See Below PHYSICAL EXAM: GENERAL: Patient is in no acute distress. HEENT: No acute trauma, normocephalic atraumatic, mucous membranes moist, no nasal congestion. NECK: No stridor, no adenopathy, no meningismus, trachea is midline. LUNGS: Diminished breath sounds bilaterally with crackles bilaterally. No wheezing. HEART: 1/6 to 2/6 systolic murmur, regular rate and rhythm. ABDOMEN: Soft, nontender, no peritonitis. EXTREMITIES: No cyanosis, full range of motion of all the joints without pain or difficulty. NEUROLOGIC: Awake, seems sleepy, no acute motor or sensory deficits, no focal weakness. SKIN: No jaundice, no diaphoresis. DIFFERENTIAL DIAGNOSIS: COVID-19, CHF, pneumonia, bronchitis, anemia, CO2 retention, among others. EMERGENCY DEPARTMENT PROCEDURES: MEDICAL DECISION MAKING: There is no leukocytosis. The patient is anemic, she does carry history of anemia. There was a normal platelet count. No coagulopathy. VBG did not show acidosis or significant CO2 retention. Renal panel testing did not show renal failure. The potassium was slightly low. ECG shows a sinus rhythm, there was no obvious ST elevation. Cardiac enzyme testing x 1 is slightly elevated. This troponin elevation could be secondary to cardiac injury or just mismatch from her dyspnea and hypoxia. Chest x-ray shows cardiomegaly and CHF. BNP was elevated consistent with fluid overload. Urinalysis does not show infection. Respiratory bio fire was positive for COVID-19. The patient presented somnolent and hypoxic. She did require O2 supplementation. Given the findings of heart failure, the patient was given IV Lasix, 40 mg. The patient is in need of a hospital stay. She has developed COVID-19, I think this has pushed her into heart failure. The 2 diagnoses have led to her dyspnea and ED presentation. I spoke with the patient's staff, I spoke with case management, the on-call hospitalist was consulted. Prior/Outside records/notes reviewed: Today's EMS notes describing her presentation and transport to this hospital. ECG per my interpretation: Indication was shortness of breath. The ECG shows a normal sinus rhythm with a rate of 85. There is a nonspecific intraventricular block. LVH is present. There is no acute ST elevation, no PVCs. The QTc is 516. Continuous Cardiac Monitoring per my interpretation: An order was placed for continuous cardiac monitoring. The monitor shows a rate of 88 with normal sinus rhythm. Imaging/x-ray results per my interpretation: Chest x-ray shows CHF and cardiomegaly. No pneumothorax. Chronic Medical/Social conditions affecting care: History of Down syndrome. Part of the local [employer] program Care/Management discussed with: Case management, the on-call hospitalist. Level of care consideration(s): After review of the information above and other included data: --I believe the patient requires escalation of care to admission Critical Care Note: I have personally spent 39 minutes of critical care time in the direct management of this patient. This includes bedside care, interpretation of diagnostic studies, and testing, discussion with consultants, patient, and family members, and other required patient management activities. This 39 minutes is in excess of all separately billable procedures. DISPOSITION: Admission Past Med/Surg History Problem List (Updated 11/21/23 @ 19:25 by Marck Smith MD) COVID-19 (Acute) Somnolence (Acute) CHF (congestive heart failure) (Acute) Anemia (Acute) Hypoxia (Acute) Elevated troponin Hypokalemia COVID-19 Hypoxia Generalized weakness Incomplete bladder emptying Urinary frequency Gastric ulcer Change in mental status (Acute) Diverticulitis (Acute) Fever (Acute 04/09/13) Fever (Acute) Hypoxemia (Acute) Influenza A (Acute) Pneumonia (Acute) Pneumonia (Acute) Influenza B (Acute) Acute respiratory failure with hypoxia Left lower lobe pneumonia Hypothyroidism Leukopenia Thrombocytopenia Discharge planning issues Microscopic hematuria Urinary incontinence Dysuria Vaginal atrophy Upper gastrointestinal hemorrhage (Acute) Anemia (Acute) Down syndrome (Acute) CAD (coronary artery disease) Pneumonia (Acute) Leukocytosis (Acute) Acute diverticulitis (Acute) Heart disease (Chronic) Medical History History of seizure grand mal > last episode per staff at [facility] Hearing loss in left ear Seasonal allergies Mild intellectual disability Hypothyroidism OCD (obsessive compulsive disorder) Gastric ulcer with hemorrhage Acute blood loss anemia GI bleed Fall Mitral regurgitation Ischemic cardiomyopathy Chronic constipation Surgical History H/O: hysterectomy per pts sister History of repair of hiatal hernia Hx of cataract extraction bilat Family History Other No pertinent family history in first degree relatives Social History Smoking Status: Unknown if ever smoked Second Hand Exposure: No; Do You Dip or Chew Tobacco: No; Hx Alcohol Use: No Hx Substance Use: No Preferred Language: Malay Communication Ability: Effective Anesthesia Associate Required: No Beliefs That Will Affect Care: None marital status: Single Current Living Situation: Personal Care Facility Current Living Situation Comment: [facility], [facility] Home Feels Safe at Home: Yes Assistive Devices: Glasses, Hearing Aid - Bilateral and Walker Allergies Allergies Allergy/AdvReac Type Severity Reaction Status Date / Time No Known Allergies Allergy Verified 04/26/22 09:53 Home Meds Home Medications Medication Instructions Recorded Confirmed cholecalciferol (vitamin D3) 25 1,000 unit PO QAM 03/19/19 11/21/23 mcg (1,000 unit) tablet (Vitamin D3) levothyroxine 75 mcg tablet 75 mcg PO QAM 03/19/19 11/21/23 metoprolol succinate 25 mg 12.5 mg PO DAILY 03/19/19 11/21/23 tablet,extended release 24 hr docusate sodium 100 mg capsule 200 mg PO HS 10/01/20 11/21/23 (Colace) furosemide 20 mg tablet (Lasix) 20 mg PO 3XWK 10/01/20 11/21/23 pravastatin 20 mg tablet 20 mg PO DAILY 10/01/20 11/21/23 L.acidophil,salivari-Bifido 1 cap PO DAILY 08/19/21 11/21/23 bifidum-Strep thermoph 175 mg capsule (Acidophilus Probiotic Blend) alendronate 70 mg tablet (Fosamax) 70 mg PO WK 08/19/21 11/21/23 cyanocobalamin (vitamin B-12) 250 250 mcg PO QAM 08/19/21 11/21/23 mcg tablet (Vitamin B-12) escitalopram oxalate 20 mg tablet 20 mg PO DAILY 08/19/21 11/21/23 melatonin 5 mg sublingual tablet 5 mg sublingual HS 08/19/21 11/21/23 sennosides 8.6 mg tablet (senna) 8.6 mg PO HS 08/19/21 11/21/23 furosemide 20 mg tablet 20 mg PO DAILY PRN Weight Gain 08/27/21 11/21/23 acetaminophen 325 mg tablet 325 mg PO QID PRN Pain 10/18/21 11/21/23 bisacodyl 10 mg rectal suppository 10 mg MS DAILY PRN Constipation 10/18/21 11/21/23 fluconazole 150 mg tablet 150 mg PO Q3D PRN Other 10/18/21 11/21/23 hydrocortisone 0.25 % topical cream 1 applic topical DIRECTED 10/18/21 11/21/23 magnesium hydroxide 400 mg/5 mL 30 ml PO DIRECTED PRN 10/18/21 11/21/23 oral suspension (Milk of Magnesia) Constipation omega [id number]-[id number]-gbw-fish oil 1,000 mg 1 cap PO DAILY 10/18/21 11/21/23 (120 mg-180 mg) capsule (Fish Oil) pantoprazole 40 mg tablet,delayed 40 mg PO DAILY 10/18/21 11/21/23 release fludrocortisone 0.1 mg tablet 0.1 mg PO DAILY hypotension 11/21/23 11/21/23 Previous Rx's Medication Instructions Recorded conjugated estrogens 0.625 mg/gram 0.625 mg vaginal 2XWK #30 grams 01/10/22 vaginal cream (Premarin) mirabegron 50 mg tablet,extended 50 mg PO DAILY #90 tabs 08/23/23 release 24 hr (Myrbetriq) nitrofurantoin 100 mg PO Q12H 5 days #10 caps 08/24/23 monohydrate/macrocrystals 100 mg capsule (Macrobid) Results & Data (ED) Vital Signs Vital Signs - 24 hr 11/21/23 11:26 11/21/23 11:59 11/21/23 12:26 Temperature 36.9 C Temperature Source Oral Pulse Rate 85 79 Pulse Rate [Apical] Pulse Rhythm Regular Pulse Strength Normal Respiratory Rate 24 22 Respiratory Effort / Characteristics Non-Labored Respiratory Depth Normal Respiratory Pattern Regular Blood Pressure 120/55 L Blood Pressure [Right Arm] Blood Pressure Mean 76 Blood Pressure Mean [Right Arm] Blood Pressure Position Sitting Pulse Oximetry 89 L 96 89 L Oxygen Delivery Method Room Air Nasal Cannula Room Air Oxygen Flow Rate 2 0 Sepsis Recent Fever Within 48 Hours Yes Sepsis New/Unexplained Change in Mental Status No Sepsis Action Taken by Nursing No Action Required Oxygen Flow Rate - Titration 2 Pulse Oximetry Post Tiitration 96 11/21/23 13:15 11/21/23 13:21 Temperature Temperature Source Pulse Rate 79 Pulse Rate [Apical] 80 Pulse Rhythm Pulse Strength Respiratory Rate 20 Respiratory Effort / Characteristics Respiratory Depth Respiratory Pattern Blood Pressure Blood Pressure [Right Arm] 121/66 Blood Pressure Mean Blood Pressure Mean [Right Arm] 84 Blood Pressure Position Pulse Oximetry 97 Oxygen Delivery Method Room Air Oxygen Flow Rate 2 Sepsis Recent Fever Within 48 Hours Sepsis New/Unexplained Change in Mental Status Sepsis Action Taken by Nursing Oxygen Flow Rate - Titration Pulse Oximetry Post Tiitration Home Medications Current Medication List: was personally reviewed by me Laboratory Data Attestation: I reviewed the patient's lab results. 11/21/23 12:05 11/21/23 12:05 Lab Results 11/21/23 11/21/23 11/21/23 Range/Units 12:05 12:11 12:29 WBC 5.32 (4.8-10.8) K/ul RBC 3.47 L (4.20-5.40) M/uL Hgb 10.7 L (12.0-16.0) g/dl Hct 32.9 L (37.0-47.0) % MCV 94.8 (80.0-100.0) fL MCH 30.8 (25.0-34.0) pg MCHC 32.5 (32.0-36.0) g/dL RDW Std Deviation 47.4 H (36.4-46.3) fL RDW Coeff of Glenn 13.7 (11.5-14.5) % Plt Count 137 (130-400) K/uL MPV 9.3 L (9.4-12.4) fL Immature Gran % (Auto) 0.4 % Neut % (Auto) 73.8 % Lymph % (Auto) 8.5 % Victoria % (Auto) 17.1 % Eos % (Auto) 0.0 % Baso % (Auto) 0.2 % Neut # (Auto) 3.93 (1.40-6.50) K/uL Lymph # (Auto) 0.45 L (1.20-3.40) K/uL Victoria # (Auto) 0.91 H (0.11-0.59) K/uL Eos # (Auto) 0.00 (0.00-0.50) K/uL Baso # (Auto) 0.01 (0.00-0.20) K/uL Immature Gran # (Auto) 0.02 (0.01-0.20) K/uL PT 11.9 (9.0-12.0) Seconds INR 1.1 (0.9-1.1) APTT 28 (21-31) Seconds PTT Ratio 1.0 VBG pH 7.46 H (7.36-7.41) VBG pCO2 47 (38-50) mmHg VBG pO2 67 mmHg VBG HCO3 33 mmol/L VBG O2 Saturation 95.0 % VBG Base Excess 8.3 mEq/L Sodium 141 (136-145) mmol/L Potassium 3.4 L (3.5-5.1) mmol/L Chloride 101 (98-107) mmol/L Carbon Dioxide 33 H (21-32) mmol/L Anion Gap 7 (3-11) BUN 13 (6-23) mg/dl Creatinine 0.71 (0.6-1.2) mg/dl Est Cr Clr Drug Dosing 50.6 ml/min Est GFR ( Amer) 98.6 ml/min Est GFR (Non-Af Amer) 85.1 ml/min BUN/Creatinine Ratio 18.3 (10-20) Glucose 112 H (70-99(Fasting)) mg/dl Calcium 8.8 (8.6-10.3) mg/dl Magnesium 1.8 (1.7-2.4) mg/dl Total Bilirubin 0.8 (0.2-1.0) mg/dl AST 20 (13-39) U/L ALT 11 (7-52) U/L Alkaline Phosphatase 46 (34-104) U/L Troponin I High Sens 22.0 H (0-14) pg/ml B-Natriuretic Peptide 627 H (0-100) pg/ml Total Protein 6.4 (6.0-8.3) gm/dl Albumin 3.9 (3.4-5.0) gm/dl Globulin 2.5 (2.5-4.0) gm/dl Albumin/Globulin Ratio 1.6 (0.9-2) Adenovirus (PCR) Not Detected (NotDetected) B. pertussis DNA (PCR) Not Detected (NotDetected) B.parapertussis DNA PCR Not Detected (NotDetected) C. pneumoniae DNA (PCR) Not Detected (NotDetected) Coronavirus OC43 (PCR) Not Detected (NotDetected) Coronavirus HKU1 (PCR) Not Detected (NotDetected) Coronavirus 229E (PCR) Not Detected (NotDetected) SARS-CoV-2 (PCR) DETECTED A (NotDetected) Coronavirus NL63 (PCR) Not Detected (NotDetected) Human Metapneumovir PCR Not Detected (NotDetected) Influenza Type A (PCR) Not Detected (NotDetected) Influenza Type B (PCR) Not Detected (NotDetected) M. pneumoniae (PCR) Not Detected (NotDetected) Parainfluenza 1 (PCR) Not Detected (NotDetected) Parainfluenza 2 (PCR) Not Detected (NotDetected) Parainfluenza 3 (PCR) Not Detected (NotDetected) Parainfluenza 4 (PCR) Not Detected (NotDetected) RSV (PCR) Not Detected (NotDetected) Entero/Rhino (PCR) Not Detected (NotDetected) Administered Medications Discontinued Medications Dexamethasone (Dexamethasone Sod Inj 4 Mg/Ml Vial) 6 mg IV NOW STA Stop: 11/21/23 13:47 Last Admin: 11/21/23 15:00 Dose: 6 mg Documented By: SUSANA Furosemide (Furosemide 40 Mg/4 Ml Vial) 40 mg IV ONE ONE Stop: 11/21/23 12:26 Last Admin: 11/21/23 13:21 Dose: 40 mg Documented By: SUSANA Potassium Chloride (K [place] / Wtr) 10 meq in 100 mls @ 100 mls/hr IV Q1H JAZMINE Stop: 11/21/23 17:14 Last Infusion: 11/21/23 18:22 Dose: Infused Documented By: Admin: 11/21/23 17:13 Dose: 100 mls/hr Documented By: Infusion: 11/21/23 17:13 Dose: Infused Documented By: Admin: 11/21/23 16:22 Dose: 100 mls/hr Documented By: Infusion: 11/21/23 16:22 Dose: Infused Documented By: Admin: 11/21/23 15:22 Dose: 100 mls/hr Documented By: SUSANA Remdesivir 200 mg/ Sodium (Chloride) 250 mls @ 125 mls/hr IV ONE STA; Protocol Stop: 11/21/23 16:31 Last Infusion: 11/21/23 17:11 Dose: Infused Documented By: Admin: 11/21/23 15:09 Dose: 125 mls/hr Documented By: SUSANA Potassium Chloride (Potassium Chloride Pwd 20 Meq Pack) 40 meq PO NOW STA Stop: 11/21/23 13:46 Last Admin: 11/21/23 14:36 Dose: Not Given Documented By: SUSANA Imaging Data Radiologist's Impression: Chest X-Ray 11/21/23 11:59 XR chest 1V portable HISTORY: Dyspnea COMPARISON: Chest 07/07/2023. FINDINGS: No pneumothorax. The heart remains enlarged. There is perihilar interstitial/vascular thickening which has progressed. This consistent with mild interstitial pulmonary edema. Suspect a trace left pleural effusion. Stable bilateral hilar prominence most pronounced on the right. No acute fractures. IMPRESSION: Cardiomegaly with interval progression of the mild interstitial pulmonary edema and a trace left pleural effusion. ACT 112: Negative or not required by law. Electronically signed by: Sukhwinder Marx M.D. 11/21/2023 1:28 PM Discharge Plan Visit Data Chief Complaint: Shortness of Breath/Dyspnea Stated Complaint: SOB ED Provider: Marck Smith Discharge Problem: Hypoxia, Anemia, CHF (congestive heart failure), Somnolence, COVID-19 Patient Disposition: Admitted As Inpatient Condition: Serious Discharge Instructions Interventions: ED Discharge Assessment Last Done: 11/21/23 15:57 Discharge Problem: Anemia Qualifiers: Anemia type: unspecified type Qualified Code(s): D64.9 - Anemia, unspecified CHF (congestive heart failure) Qualifiers: Heart failure type: unspecified Heart failure chronicity: acute on chronic Q ualified Code(s): I50.9 - Heart failure, unspecified
[2023-11-21 12:41] LABS: Basophils # (auto) 0.01 K/uL (0.00-0.20); Basophils % (auto) 0.2 %; Hematocrit (blood only) 32.9 % (37.0-47.0); Hemoglobin 10.7 g/dl (12.0-16.0); Immature Granulocytes # (auto) 0.02 K/uL (0.01-0.20); Immature Granulocytes % (auto) 0.4 %; Lymphocytes # (auto) 0.45 K/uL (1.20-3.40); Lymphocytes % (auto) 8.5 %; Mean Corpuscular Hemoglobin 30.8 pg (25.0-34.0); Mean Corpuscular Hgb Conc 32.5 g/dL (32.0-36.0); Mean Corpuscular Volume 94.8 fL (80.0-100.0); Mean Platelet Volume 9.3 fL (9.4-12.4); Monocytes # (auto) 0.91 K/uL (0.11-0.59); Monocytes % (auto) 17.1 %; Neutrophils # (auto) 3.93 K/uL (1.40-6.50); Neutrophils % (auto) 73.8 %; Platelet Count 137 K/uL (130-400); RDW Coefficient of Variation 13.7 % (11.5-14.5); RDW Standard Deviation 47.4 fL (36.4-46.3); Red Blood Count 3.47 M/uL (4.20-5.40); White Blood Count 5.32 K/ul (4.8-10.8)
[2023-11-21 12:55] LABS: Albumin Globulin Ratio 1.6 (0.9-2); Albumin Level 3.9 gm/dl (3.4-5.0); BUN Creatinine Ratio 18.3 (10-20); Bilirubin,Total 0.8 mg/dl (0.2-1.0); Calcium 8.8 mg/dl (8.6-10.3); Creatinine Clr Calc Pharmacy 50.6 ml/min; Est GFR (African American) 98.6 ml/min; Est GFR (Non-African American) 85.1 ml/min; Globulin 2.5 gm/dl (2.5-4.0); Magnesium 1.8 mg/dl (1.7-2.4); Potassium 3.4 mmol/L (3.5-5.1); Total Protein 6.4 gm/dl (6.0-8.3)
[2023-11-21 13:05] LABS: INR 1.1 (0.9-1.1); Partial Thromboplastin Time 28 Seconds (21-31); Prothrombin Time 11.9 Seconds (9.0-12.0)
[2023-11-21 13:17] LABS: Base Excess VBG 8.3 mEq/L; HCO3 VBG 33 mmol/L; PCO2 VBG 47 mmHg (38-50); PO2 VBG 67 mmHg; pH VBG 7.46 (7.36-7.41)
[2023-11-21] MEDS: FUROSEMIDE 40 MG/4 ML VIAL IV ONE (13:21)
[2023-11-21 13:23] LABS: Adenovirus PCR Not Detected (NotDetected); Bordetella parapertussis PCR Not Detected (NotDetected); Bordetella pertussis PCR Not Detected (NotDetected); Chlamydia pneumoniae PCR Not Detected (NotDetected); Coronavirus 229E PCR Not Detected (NotDetected); Coronavirus CoV-2 (COVID19)PCR DETECTED (NotDetected); Coronavirus HKU1 PCR Not Detected (NotDetected); Coronavirus NL63 PCR Not Detected (NotDetected); Coronavirus OC43PCR Not Detected (NotDetected); Human Metapneumovirus PCR Not Detected (NotDetected); Influenza A PCR Not Detected (NotDetected); Influenza B PCR Not Detected (NotDetected); Mycoplasma pneumoniae PCR Not Detected (NotDetected); Parainfluenza Virus 1 PCR Not Detected (NotDetected); Parainfluenza Virus 2 PCR Not Detected (NotDetected); Parainfluenza Virus 3 PCR Not Detected (NotDetected); Parainfluenza Virus 4 PCR Not Detected (NotDetected); Respiratory Syncytial VirusPCR Not Detected (NotDetected); Rhinovirus/Enterovirus PCR Not Detected (NotDetected)
--- NOTE | 2023-11-21 13:30 | XRay Report ---
XR chest 1V portable HISTORY: Dyspnea COMPARISON: Chest 07/07/2023. FINDINGS: No pneumothorax. The heart remains enlarged. There is perihilar interstitial/vascular thick ening which has progressed. This consistent with mild interstitial pulmonary edema. Suspect a trace l eft pleural effusion. Stable bilateral hilar prominence most pronounced on the right. No acute fractu res. IMPRESSION: Cardiomegaly with interval progression of the mild interstitial pulmonary edema and a trace left pleu ral effusion. ACT 112: Negative or not required by law. Electronically signed by: Sukhwinder Marx M.D. 11/21/2023 1:28 PM
--- NOTE | 2023-11-21 13:47 | History & Physical Report ---
Date of Service November 21, 2023 Assessment & Plan (1) Generalized weakness: Plan: Admit to med/tele on pulse oximetry Currently stable on 2 L nasal cannula and otherwise stable Presented to ED via EMS for increased generalized weakness and hypoxia with SpO2 in the mid to high 80s on room air after testing positive on home COVID-19 test on 11/20/2023 Patient is nonfocal on exam but generally weak likely due to her acute COVID- 19 infection Caregiver at bedside confirms that patient normally has no issues taking pills but was unable to safely swallow all medications this morning due to her weakness Fall/aspiration precautions ordered PT/OT consults ordered SQ Lovenox for DVT prophylaxis Will order dysphagia screen, if passes will start heart healthy diet with easy to chew texture AM CBC, BMP, mag, PT/INR (2) Hypoxia: Plan: Noted to be hypoxic with SpO2 in the mid to high 80s on room air both at home and on arrival to the ED Currently stable on 2 L nasal cannula and in no respiratory distress Likely a combination of acute COVID-19 infection and acute CHF exacerbation with interstitial pulmonary congestion and mild pleural effusions Has been given 40 mg IV Lasix in the ED, will hold further IV diuresis for now and monitor how she responds overnight Monitor intake/output every shift and daily weights Will start dexamethasone and remdesivir for her acute COVID-19 infection Spirometry, flutter therapy, as needed albuterol, as needed O2 to keep SpO2 at or above 92% Obtain TTE during this admission to monitor for any changes to her known heart failure with preserved action fraction and grade 1 diastolic dysfunction (3) COVID-19: Plan: Positive on home test and on her PCR testing today Will start 6 mg IV dexamethasone daily for total of 10 days and 5 days of remdesivir therapy Incentive spirometry, flutter therapy, as needed O2 to keep SpO2 at or above 92%, as needed albuterol Tylenol (4) Hypokalemia: Plan: Potassium noted to be 3.4 on arrival with mag of 1.8 Will give 3 bags of 10 mEq IV KCl now as she is too fatigued to safely take p.o. KCl at this time Continue to monitor daily renal function and electrolytes Continue to monitor on telemetry (5) Elevated troponin: Plan: Initial high-sensitivity troponin mildly elevated at 22 No acute ECG changes Likely due to demand from hypoxia and acute COVID-19 infection Will follow repeat high-sensitivity troponin and monitor TTE ordered at time of admission Continue to monitor on telemetry (6) Hypothyroidism: Plan: Continue levothyroxine Plan The patient was discussed with Dr. Sousa at time of the admission History of Present Illness Chief Complaint: Positive home COVID-19 test, weakness, fever Primary Care Provider: Lulu Harper MD Ely is a 73-year-old female with a past medical history significant for Down syndrome, coronary artery disease, heart failure with preserved action fraction, grade 1 diastolic dysfunction, hypothyroidism, acute blood loss anemia due to gastric ulcer bleed who presented to [facility] ED on 11/21/2023 via EMS from her [facility] ([facility]) due to increased generalized weakness and fever after recently testing positive with home COVID-19 test. On arrival to the ED she was noted to be hypoxic on room air with SpO2 in the mid to high 80s but was otherwise stable. Labs were significant for hemoglobin of 10.7 (down from 12 as of 07/07/2023), potassium of 3.4, initial high-sensitivity troponin of 22, BNP of 627, with full respiratory [employer] in process. Chest x- ray was read as cardiomegaly with interval progression of the mild interstitial pulmonary edema and a trace left pleural effusion. ECG shows normal sinus rhyth m without acute ST segment or T wave changes. The patient was placed on 2 L nasal cannula and remained stable. Prior to admission she was given 40 mg IV Lasix. Patient was sleeping comfortably in bed at time of the exam currently stable on 2 L nasal cannula, history was not obtained from the patient due to combination of her baseline mental status and increased weakness due to acute COVID 19 infection. History was obtained from nursing keypunch operators supervisor from the [facility] who was present at bedside. She states that the patient be much more tired/weak than her baseline and had a low-grade fever the evening of 11/20/2023. Due to this they tested her with a home COVID test which came back positive. This a.m. when the nursing keypunch operators supervisor chefs the patient was still very weak with an SpO2 in the high 80s which is why EMS was called. Nursing keypunch operators supervisor confirms that the patient does not use oxygen or at bedtime CPAP at home. When asked, nursing keypunch operators supervisor explains that the patient had some of her a.m. medications but was pocketing some pills/tablets this morning so she is unsure which she actually had. Normally has no issues eating or drinking but may be high risk for aspiration at this time due to her weakness. Her nursing keypunch operators supervisor believes that the patient is a DNR/DNI but will confirm with us in the near future. They confirmed that the patient's sister, Swathi Anaya ([phone]) is a patient's primary decision-maker. I was able to call and speak with the patient's sister who confirmed that the patient is a DNR/DNI. We also discussed the option to start patient on remdesivir as her renal/liver function are within normal limits and patient is high risk for decompensation with a history of heart failure. After further discussion the patient's family would like to proceed with remdesivir treatment along with dexamethasone. Please refer to Dr. Sousa's attestation for any changes to treatment plan Allergies Allergy/AdvReac Type Severity Reaction Status Date / Time No Known Allergies Allergy Verified 04/26/22 09:53 Home Medications Medication Instructions Recorded Confirmed Type cholecalciferol (vitamin D3) 25 1,000 unit PO QAM 03/19/19 11/21/23 History mcg (1,000 unit) tablet (Vitamin D3) levothyroxine 75 mcg tablet 75 mcg PO QAM 03/19/19 11/21/23 History metoprolol succinate 25 mg 12.5 mg PO DAILY 03/19/19 11/21/23 History tablet,extended release 24 hr docusate sodium 100 mg capsule 200 mg PO HS 10/01/20 11/21/23 History (Colace) furosemide 20 mg tablet (Lasix) 20 mg PO 3XWK 10/01/20 11/21/23 History pravastatin 20 mg tablet 20 mg PO DAILY 10/01/20 11/21/23 History L.acidophil,salivari-Bifido 1 cap PO DAILY 08/19/21 11/21/23 History bifidum-Strep thermoph 175 mg capsule (Acidophilus Probiotic Blend) alendronate 70 mg tablet (Fosamax) 70 mg PO WK 08/19/21 11/21/23 History cyanocobalamin (vitamin B-12) 250 250 mcg PO QAM 08/19/21 11/21/23 History mcg tablet (Vitamin B-12) escitalopram oxalate 20 mg tablet 20 mg PO DAILY 08/19/21 11/21/23 History melatonin 5 mg sublingual tablet 5 mg sublingual HS 08/19/21 11/21/23 History sennosides 8.6 mg tablet (senna) 8.6 mg PO HS 08/19/21 11/21/23 History furosemide 20 mg tablet 20 mg PO DAILY PRN Weight Gain 08/27/21 11/21/23 History acetaminophen 325 mg tablet 325 mg PO QID PRN Pain 10/18/21 11/21/23 History bisacodyl 10 mg rectal suppository 10 mg AK DAILY PRN Constipation 10/18/21 11/21/23 History fluconazole 150 mg tablet 150 mg PO Q3D PRN Other 10/18/21 11/21/23 History hydrocortisone 0.25 % topical cream 1 applic topical DIRECTED 10/18/21 11/21/23 History magnesium hydroxide 400 mg/5 mL 30 ml PO DIRECTED PRN 10/18/21 11/21/23 History oral suspension (Milk of Magnesia) Constipation omega 9-jro-aia-fish oil 1,000 mg 1 cap PO DAILY 10/18/21 11/21/23 History (120 mg-180 mg) capsule (Fish Oil) pantoprazole 40 mg tablet,delayed 40 mg PO DAILY 10/18/21 11/21/23 History release conjugated estrogens 0.625 mg/gram 0.625 mg vaginal 2XWK #30 grams 01/10/22 11/21/23 Rx vaginal cream (Premarin) mirabegron 50 mg tablet,extended 50 mg PO DAILY #90 tabs 08/23/23 11/21/23 Rx release 24 hr (Myrbetriq) nitrofurantoin 100 mg PO Q12H 5 days #10 caps 08/24/23 11/21/23 Rx monohydrate/macrocrystals 100 mg capsule (Macrobid) timolol maleate 0.25 % eye drops 1 drp OPR BID 11/21/23 11/21/23 History tobramycin 0.3 %-dexamethasone 0.1 1 drp ophthalmic (eye) BID 11/21/23 11/21/23 History % eye drops,suspension Past Med/Surg History Problem List (Updated 11/21/23 @ 14:22 by Trevon M. Peno, PA-C) Elevated troponin Hypokalemia COVID-19 Hypoxia Generalized weakness Incomplete bladder emptying Urinary frequency Gastric ulcer Change in mental status (Acute) Diverticulitis (Acute) Fever (Acute 04/09/13) Fever (Acute) Hypoxemia (Acute) Influenza A (Acute) Pneumonia (Acute) Pneumonia (Acute) Influenza B (Acute) Acute respiratory failure with hypoxia Left lower lobe pneumonia Hypothyroidism Leukopenia Thrombocytopenia Discharge planning issues Microscopic hematuria Urinary incontinence Dysuria Vaginal atrophy Upper gastrointestinal hemorrhage (Acute) Anemia (Acute) Down syndrome (Acute) CAD (coronary artery disease) Pneumonia (Acute) Leukocytosis (Acute) Acute diverticulitis (Acute) Heart disease (Chronic) Medical History History of seizure grand mal > last episode per staff at [facility] Hearing loss in left ear Seasonal allergies Mild intellectual disability Hypothyroidism OCD (obsessive compulsive disorder) Gastric ulcer with hemorrhage Acute blood loss anemia GI bleed Fall Mitral regurgitation Ischemic cardiomyopathy Down syndrome Chronic constipation CAD (coronary artery disease) Leukocytosis Acute diverticulitis Heart disease Surgical History H/O: hysterectomy per pts sister History of repair of hiatal hernia Hx of cataract extraction bilat Family History Other No pertinent family history in first degree relatives Social History Smoking Status: Unknown if ever smoked Second Hand Exposure: No; Do You Dip or Chew Tobacco: No; Hx Alcohol Use: No Hx Substance Use: No Preferred Language: Icelandic Communication Ability: Effective Table Games Dealer Required: No Beliefs That Will Affect Care: None marital status: Single Current Living Situation: Personal Care Facility Current Living Situation Comment: [facility] [address] Feels Safe at Home: Yes Assistive Devices: Glasses, Hearing Aid - Bilateral and Walker Physical Exam Physical Exam: Physical Exam: General: In no acute distress, stated age, fatigued and ill-appearing but nontoxic HEENT: Normocephalic, atraumatic, no scleral icterus, right eye currently mildly swollen and erythematous due to known conjunctivitis which is being treated and followed outpatient by ophthalmology, bilateral pupils are round, symmetrical, and reactive to light, dry mucus membranes, trachea midline, no thyromegaly Chest/Pulm: No respiratory distress, symmetrical chest expansion, crackles noted in the bilateral lower mid lung julio with scattered expiratory wheezing 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 Extremities: Radial, dorsalis pedis, and posterior tibial pulses are intact and symmetrical, no edema noted in the BL LE's Skin: Warm, dry, no rashes , lesions, or scars noted Neuro: Alert and oriented to person only (caregiver at bedside states that patient is at her neurologic baseline but just fatigued), no focal defects, no tremors noted Psych: No acute distress, fatigued but pleasant and cooperative with exam Results & Data Results & Data Vital Signs (Past 12 Hours) Vital Signs Temp Pulse Pulse Resp BP BP Pulse Ox 11/21/23 13:21 80 20 121/66 97 11/21/23 13:15 79 11/21/23 12:26 89 L 11/21/23 11:59 79 22 96 11/21/23 11:26 36.9 C 85 24 120/55 L 89 L O2 Del Method O2 Flow Rate 11/21/23 13:21 Room Air 2 11/21/23 13:15 11/21/23 12:26 Room Air 0 11/21/23 11:59 Nasal Cannula 2 11/21/23 11:26 Room Air Laboratory Results Abnormal lab results 11/21/23 11/21/23 Range/Units 12:05 12:29 RBC 3.47 L (4.20-5.40) M/uL Hgb 10.7 L (12.0-16.0) g/dl Hct 32.9 L (37.0-47.0) % RDW Std Deviation 47.4 H (36.4-46.3) fL MPV 9.3 L (9.4-12.4) fL Lymph # (Auto) 0.45 L (1.20-3.40) K/uL Wells # (Auto) 0.91 H (0.11-0.59) K/uL VBG pH 7.46 H (7.36-7.41) Potassium 3.4 L (3.5-5.1) mmol/L Carbon Dioxide 33 H (21-32) mmol/L Glucose 112 H (70-99(Fasting)) mg/dl Troponin I High Sens 22.0 H (0-14) pg/ml B-Natriuretic Peptide 627 H (0-100) pg/ml Diagnostic Findings Chest X-Ray 11/21/23 11:59 XR chest 1V portable HISTORY: Dyspnea COMPARISON: Chest 07/07/2023. FINDINGS: No pneumothorax. The heart remains enlarged. There is perihilar interstitial/vascular thickening which has progressed. This consistent with mild interstitial pulmonary edema. Suspect a trace left pleural effusion. Stable bilateral hilar prominence most pronounced on the right. No acute fractures. IMPRESSION: Cardiomegaly with interval progression of the mild interstitial pulmonary edema and a trace left pleural effusion. ACT 112: Negative or not required by law. Electronically signed by: Sukhwinder Marx M.D. 11/21/2023 1:28 PM ECG Additional Comments: Normal sinus rhythm without acute ST segment or T wave changes Code Status & VTE Plan Code Status DNR/DNI VTE Prophylaxis Plan VTE Prophylaxis will be ordered: Yes Supervising Physician Co-Signing Physician Notes Patient seen and examined, chart reviewed, case discussed with Trevon Castellanos PA-C and I agree with the assessment and plan as above except as otherwise noted Labs and images reviewed 73-year-old female who presents with shortness of breath and hypoxia requiring 2 L nasal cannula oxygen and COVID-positive x 24 hours. Patient is a resident of the [facility] where there is currently a COVID outbreak. She has a history of CHF. She shows signs of acute CHF with interval progression of mild interstitial pulmonary edema on admission no evidence of superimposed pneumonia. She is within her first 48 hours of symptoms. She does not have impaired renal function or a transaminitis. Agree with Lasix for CHF and tomorrow dry pulmonary status with COVID. Steroids continue with dexamethasone right transaminitis. Agree with Lasix for CHF and remote dry pulmonary status with COVID. Steroids continued. Remdesivir discussion as above. Agree with above. Titrate O2 to SpO2 greater than 89% PG Care Time/CCT Total # of Minutes Spent Total Time Spent with Patient: Total time spent is greater than 50% in coordination of care (as documented) at patient's floor/unit and/or counseling patient: Coding [place] [address] INT INP/OBS CARE MIN Patient Type Established History Comprehensive Exam Comprehensive Medical Decision Making High Complexity Diagnoses Generalized weakness R53.1 Hypoxia R09.02 COVID-19 U07.1 Hypokalemia E87.6 Elevated troponin R79.89 Hypothyroidism E03.9
[2023-11-21] MEDS: POTASSIUM CHLORIDE PWD 20 MEQ PACK PO STA (14:36)
[2023-11-21] MEDS: DEXAMETHASONE SOD INJ 4 MG/ML VIAL IV STA (15:00)
[2023-11-21] MEDS: REMDESIVIR 200 MG in SODIUM CHLORIDE 0.9% 210 ML IV STA (15:09)
[2023-11-21] MEDS: POTASSIUM CHLORIDE / WTR 10 MEQ/100 ML PLCT IV SCH (15:22)
[2023-11-21 15:44] LABS: Appearance Urine Clear (Clear); Bacteria Urine Automated 1+ (None Seen); Bilirubin Urine Negative (Negative); Blood Urine 2+ (Negative); Cast Urine Automated 0-2 /lpf (0-2); Color Urine Yellow; Epithelial Cell Urine Auto 0-2 /hpf (0-2); Glucose Urine UA Negative (Negative); Ketones Urine Trace (Negative); Leukocyte Esterase Urine Negative (Negative); Nitrite Urine Negative (Negative); Protein Urine Trace (Negative); RBC Urine Automated >20 /hpf (0-2); Specific Gravity Urine 1.011 (1.000-1.030); Urobilinogen Urine Negative (Negative); WBC Urine Automated 0-5 /hpf (0-5)
[2023-11-21] MEDS ORDERED: bisacodyL 10 MG SUPP PR PRN (17:00)
[2023-11-21] MEDS: ENOXAPARIN INJ 40 MG/0.4 ML SYR SQ SCH (19:39)
[2023-11-21] MEDS: TIMOLOL MALEATE 0.25% OP SOLN 5 ML BTL OPR SCH (19:39)
--- OUTSIDE RECORDS SUMMARY | 2023-11-21 20:29 | External Medical Summary | Continuity of Care Document ---
Author Name Unknown Organization [facility] [address] 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 Aurelio has had 3 documented fallsin this timeframe. Last clinic note relating to falls was reviewed from 10/24/2023, as well as labs completed on the same day. In discussion withVernell and Kate, it sounds likethey are suspecting falls are related to drowsiness. Once had fallen off of the commodedue to falling asleep, another fall occurred when she fell asleep in a swivel chair and most recent fall occurred when shewas still drowsy after waking in the morningandlikely slipped in the bathroom. Her sister tells me that in the past when she had multiple falls they found that it was also related to fatigue and difficulty sleeping, but once they were able to get her in a better bedtime routine and she was sleeping better throughout the night falls decreased. Labs and urinalysis have been completed in the last 3 weeks and negative for obvious source of fatigue or infection. Orthostatic vitals were completed today and BPis chronically low, but did not have any orthostaticchanges, which is reassuring. We did discusshaving her continue ambulate with the use of rollator walker or other assistive device at all times. I would recommend considering updated brain imaging if falls continue to occur, whichpatient's sister declines today, but would be open to doingin the future if needed. We discussed physical therapy to evaluate patient'sstrength and balance, tristian declined at this time as patient had tried this in the pastwithout significant benefit. They were given written orders to discontinue her melatonin as this has not been helpful for sleep. They were given orders to start Aurelio's bedtime routine around 3 PMwith a goal of getting herin bed between 6 to 8 PM to fall asleep at a reasonable hour. Family and staff felt this worked well for her previously. Most recently not been going to bed until early hours of the morningand is then excessively fatigued throughout the day. To follow up in 3-4 months as planned and sooner if needed. 2.Sleep disturbance Sleep disturbance is chronic and uncontrolled. Goal is resolution of symptoms. As above in 1. 3.Ambulatory dysfunction Ambulatory dysfunction is chronic and likely multifactorial. As above in #1. Time spent on pre-visit plannin minutes Face to face time spent w/ patient: 24 minutes Time spent documenting pertinent clinical information into the EMR: 15 minutes Total time: 44 minutes Immunizations Given and Recorded Vaccine Date Status Refusal Reason SARS COVID Vaccine Unspecified 12/16/22 Recorded SARS-CoV-2 (COVID-19) mRNA-vacc - [id number] 12/13/22 Recorded influenza virus vaccine, inactivated 12/10/21 Yamil rded influenza virus vaccine, inactivated 1 12/23/20 Re corded influenza virus vaccine, inactivated 12/23/20 Yamil rded influenza virus vaccine, inactivated 12/23/19 Give n SARS-CoV-2 mRNA (tozinameran 5y-11y) 12/10/21 Yamil rded hepatitis B adult vaccine 10/25/21 Given hepatitis B adult vaccine 05/25/21 Given hepatitis B adult vaccine 04/27/21 Given SARS-CoV-2 (COVID-19) mRNA-1273 vaccine 2 08/13/21 Recorded SARS-CoV-2 (COVID-19) mRNA-1273 vaccine 3 01/22/21 Recorded SARS-CoV-2 (COVID-19) mRNA-1273 vaccine 4 05/09/20 Recorded SARS-CoV-2 (COVID-19) mRNA-1273 vaccine 5 04/11/20 Recorded tetanus/diphtheria/pertuss, acel (Tdap) 04/27/21 G iven SARS-CoV-2 (COVID-19) ChAdOx1 vaccine 05/08/20 Rec orded zoster vaccine, inactivated 6 02/13/20 Given zoster vaccine, inactivated 10/15/19 Given pneumococcal 23-valent vaccine 04/04/18 Given pneumococcal 13-valent vaccine 12/19/16 Given 1Result Comment: Route: Unknown 2Result Comment: Route: Unknown 3Result Comment: 2021-01-25: Historical information-source unspecified 4Result Comment: 2021-01-25: Historical information-source unspecified 5Result Comment: 2020-04-14: Historical information-source unspecified 6Result Comment: adjuvant exp 12/04/2021 lot# [id number] caregiver present, neither patient or caregiver voice concerns this day. patient tolerated well Medications Acidophilus Probiotic Blend oral capsule Start: 06/06/23 12:30:00 PM EDT, 1 cap, PO, Daily, Disp# 31 cap, Refills: 6, FOR CONSTIPATION., Pharmacy: [facility] Start Date: 06/06/23 Status: Ordered alendronate 70 mg oral tablet Start: 06/12/23 11:15:00 AM EDT, 1 tab, PO, q7days, Disp# 4 tab, Refills: 6, FOR osteoporosis., Pharmacy: [facility] Start Date: 06/12/23 Status: Ordered docusate sodium 100 mg oral capsule Start: 07/03/23 6:04:00 PM EDT, 2 cap, PO, qhs, Disp# 62 cap, Refills: 11, MAY HOLD FOR DIARRHEA., Pharmacy: [facility] Start Date: 07/03/23 Status: Ordered escitalopram 20 mg oral tablet Start: 12/12/22 8:38:00 PM EDT, 1 tab, PO, Daily, Disp# 31 tab, Refills: 11, Pharmacy: [facility] Start Date: 12/12/22 Status: Ordered Fish Oil Softgel 1000mg Lemon 100+25 Start: 01/09/23 7:08:00 PM EST, Fish Oil Softgel 1000mg Lemon 100+25, 1 cap, PO, Daily, Disp# 31 each, Refills: 6, Pharmacy [facility] Start Date: 01/09/23 Status: Ordered Fish Oil Softgel 1000mg Lemon 100+25 Start: 08/11/23 7:46:00 PM EDT, Fish Oil Softgel 1000mg Lemon 100+25, 1 cap, PO, Daily, Disp# 31 each, Refills: 6, Pharmacy [facility] Start Date: 08/11/23 Status: Ordered fludrocortisone 0.1 mg oral tablet Start: 07/06/23 1:54:00 PM EDT, 1 tab, PO, Daily, Disp# 30 tab, Refills: 11, Pharmacy: [facility] Start Date: 07/06/23 Status: Ordered fluticasone 27.5 mcg/inh nasal spray Start: 01/13/23 2:28:00 PM EST, 2 spray, each nostril, Daily, Disp# 15.8 mL, Refills: 11, PRN: allergy symptoms, Pharmacy: [facility] Start Date: 01/13/23 Status: Ordered furosemide 20 mg oral tablet Start: 05/25/23 4:02:00 PM EDT, See Instructions, Disp# 30 tab, Refills: 5, Take 1 tablet on / May take 1 extra tablet daily PRN for weight gain of greater than 2 pounds, Pharmacy: [facility] Start Date: 05/25/23 Status: Ordered levothyroxine 75 mcg (0.075 mg) oral tablet Start: 08/11/23 7:46:00 PM EDT, 1 tab, PO, Daily, Disp# 31 tab, Refills: 6, Pharmacy: [facility] Start Date: 08/11/23 Status: Ordered Milk of Magnesia 8% oral suspension Start: 09/28/23 7:34:00 PM EDT, 30 mL, PO, qhs, Disp# 355 mL, Refills: 2, PRN: NEEDED FOR CONSTIPATION, Pharmacy: [facility] Start Date: 09/28/23 Status: Ordered Myrbetriq 25 mg oral tablet, extended release Start: 05/25/23 10:06:00 AM EDT Start Date: 05/25/23 Status: Ordered pantoprazole 40 mg oral delayed release tablet Start: 08/11/23 7:46:00 PM EDT, 1 tab, PO, Daily, Disp# 31 tab, Refills: 6, Pharmacy: [facility] Start Date: 08/11/23 Status: Ordered polyethylene glycol 3350 oral powder for reconstitution Start: 09/25/23 6:49:00 PM EDT, See Instructions, Disp# 510 g, Refills: 3, MIX 17 GRAMS IN 8 OZ OF WATER OR JUICE DAILY NEEDED FOR CONSTIPATION, Pharmacy: [facility] Start Date: 09/25/23 Status: Ordered pravastatin 20 mg oral tablet Start: 03/15/23 8:35:00 PM EST, 1 tab, PO, Daily, Disp# 31 tab, Refills: 11, Pharmacy: [facility] Start Date: 03/15/23 Status: Ordered Premarin 0.625 mg/g vaginal cream with applicator Start: 03/08/23 7:10:00 PM EST, See Instructions, Disp# 30 g, Refills: 2, Apply 0.5 gram vaginally twice weekly on Tuesdays and , Note to Pharmacy: [facility] is requesting a new label only., Pharmacy: [facility] Start Date: 03/08/23 Status: Ordered Procto-Med HC 2.5% topical cream Start: 09/28/23 7:34:00 PM EDT, See Instructions, Disp# 28 g, Refills: 2, APPLY RECTALLY TWICE DAILYAS NEEDED, Pharmacy: [facility] Start Date: 09/28/23 Status: Ordered Senna-Time 8.6 mg oral tablet Start: 08/11/23 7:46:00 PM EDT, 1 tab, PO, qhs, Disp# 31 tab, Refills: 6, MAY HOLD FOR LOOSE BOWELS.,Pharmacy: [facility] Start Date: 08/11/23 Status: Ordered Vit D3 1000iu Softgel 200+50 Start: 08/11/23 7:46:00 PM EDT, Vit D3 1000iu Softgel 200+50, 1 cap, PO, Daily, Disp# 31 each, Refills: 6, Pharmacy [facility] Start Date: 08/11/23 Status: Ordered Vit D3 1000iu Softgel 200+50 Start: 01/09/23 7:08:00 PM EST, Vit D3 1000iu Softgel 200+50, 1 cap, PO, Daily, Disp# 31 each, Refills: 6, Pharmacy [facility] Start Date: 01/09/23 Status: Ordered Vitamin B-12 250 mcg oral tablet Start: 06/06/23 12:30:00 PM EDT, 1 tab, PO, Daily, Disp# 31 each, Refills: 6, Pharmacy: [facility] Start Date: 06/06/23 Status: Ordered Vitamin D3 1000 intl units (25 mcg) oral tablet Start: 04/10/20 4:28:00 PM EST, 1,000 Int_Unit =, PO, Daily, Disp# 30 tab, Refills: 11, Pharmacy: [facility] Start Date: 04/10/20 Status: Ordered Mental Status 11/07/23 Barriers to Learning one year Cognitive deficit, Hearing deficit, Other: director decision support present Mandatory Health Literacy Documentation Yes Health Literacy Communication Barriers N ever Primary Language Slovenian Problem List Condition Confirmation Course Effective Dates Status H ealth Status Informant Down syndrome Confirmed Active Anxiety Confirmed Active Constipation, chronic Confirmed Active Chronic cough Confirmed Active Chronic hypotension Confirmed Active Chronic hypotension Confirmed Active Chronic kidney disease (CKD) Confirmed Active Chronic systolic heart failure (disorder) Confirmed Active Coronary arteriosclerosis Confirmed Active CAD in red devil artery Confirmed Active Gastric ulceration Confirmed Active Ischemic cardiomyopathy Confirmed Active Orbital hemangioma Confirmed Active Hypothyroidism Confirmed Active Ischemic cardiomyopathy Confirmed Active Mitral regurgitation Confirmed Active PUD (peptic ulcer disease) Confirmed Active Ambulatory dysfunction Confirmed Active Ambulatory dysfunction Confirmed Active Diagnosis Diagnosis Type Effective Dates Health Status Clinical Service Informant Frequent falls Discharge Diagnosis 11/07/23 Non-Specified Sleep disturbance Discharge Diagnosis 11/07/23 Non-Specified Ambulatory dysfunction Discharge Diagnosis 11/07/23 Non-Specified Benign neoplasm of right orbit Discharge Diagnosis 11/10/23 Non-Specified Procedures Procedure Date Related Diagnosis Body Site Status Bone density scan 1, 2 06/30/23 Co mpleted Chest x-ray 3 04/26/22 Completed Plain X-ray of all fingers o f right hand 4 03/07/22 Completed X-ray of fingers right 5 02/09/22 Completed KUB X-ray 6 11/12/21 Completed KUB X-ray 7 10/26/21 Completed Upper GI (gastrointestinal) endoscopy 8 10/20/21 Completed EGD - Esophagogastroduodenoscopy 9 08/27/[address] of brain 10 08/01/21 Completed Bone density scan 11 04/29/21 Comp leted Cystoscopy 12 04/02/21 Completed Shave biopsy of skin 04/01/21 Comp leted Abnormal ultrasound of kidney 13 09/11/20 Completed Ultrasound 14 09/11/20 Completed Chest X-ray 2V PA/lateral 15 04/19/19 Completed Chest x-ray 16 12/05/18 Completed Abnormal mammogram 17 09/02/16 Com pleted Mammogram 18 03/03/16 Completed Mammogram 19 02/24/16 Completed CXR - Chest X-ray 20 05/30/15 Comp leted Barium enema 21 02/10/15 Completed Colonoscopy 22, 23 01/23/[address] of abdomen and pelvis 24, 25 12/01/14 Completed Echocardiogram 26 11/11/14 Complet ed CXR - Chest X-ray 27 11/03/14 Comp leted Chest x-ray 28 09/28/14 Completed Echocardiogram 29 04/29/14 Complet ed Mammogram - screening 30 12/26/13 Completed Cardiac echo 31 09/26/12 Completed Colonoscopy abnormal 32 08/07/12 C ompleted Ultrasound, abdominal, real time with image documentation; complete 33 07/04/12 Completed Repair of esophageal hiatal hernia by abdominal approach 03/17/10 Completed Laser ablation of long saphenous vein 11/11/09 Completed Hemorrhoidectomy 03/06/76 Complete d History of tonsillectomy 03/06/55 Completed Bilateral tubal ligation Completed Cataract Completed CXR - Chest X-ray 34 Comp leted 1t-scores : spine -1.6; L femur neck -1.7; R femur neck -1.1; L total femur - 1.7; R total femur -0.9 2Follow exam June 2025. [address] [place] [address] Impression: 1. Cardiomegaly with evidence of congestive failure 2. Bilateral airspace opacities likely represent mild pulmonary edema. Correlate clinically for evidence of a superimposed infectious/inflammatory pneumonitis 3. Small pleural effusions with dependent consolidation 4Impression: Comminuted, subacute fourth distal palange tuft fracture demonstrates progreesive fragmentation anddisplacement without significant interval bony healing. 5IMPRESSION: Comminuted fracture of the right fourth distal phalanx at the tuft with associated soft tissue swelling. 6iMPRESSION: No evidence for a bowel obstruction. Diiished mucosal detail given single contrast technique but no definite mucosa abnormality identifies. Moderate amoun of stool within colon and rectum. 71) The radiopaque capsule is located within the right lower quadrant. This could reside within the distal ileum or mid sigmoid colon. 2) Moderate to large amount of well-formed stool seen throughout the colon. 8Normal esophagus. Normal stomach Normal examined duodenum No specimens collected. 9Normal esphagus. Z-line regular, 40 cm from te incisors. Non-bleeding gastric ulcer with pigmented material. No specimens collected. Non-bleeding gastric ulcer with no stigmata of bleeding. Normal examined duodenum. 101. There is no hemorrhage, mass effect, or evidence of acute territorial ischemia by CT criteria. 2. There is a 1.9cm ovoid and slightly hyperdense mass lesion the right orbit as detailed above. This is pathologically indeterminant, possibly representing an orbital cavernous malformation, a venous varix or possibly a schwannoma. Nonemergent follow up with ophthalomology is recommended. 11AP Spine T score -1.8 Femur Neck Left T score -2.6 Femur Neck Right T score -0.7 Femur Total Left T score -2.0 Femur Total Right T score -1.3 Z score -0.9 12done for microscopic hemturia; findings : no tumors or stones, suspect component of incomplete emptying, mild urethral stenosis 13kidneys w/ mild cortical atrophy, no hydronephrosis, bladder wall mildly thickened & trabeculated 14ULTRASOUND KIDNEYS AND BLADDER IMPRESSION: 1. The kidneys demonstrate mild cortical atrophy and are without hydronephrosis. 2. The bladder wall appears mildly thickened and trabeculated. Correlate with clinical findings andurinalysis. 15Impression: 1. Cardiomegaly with suggestion of pulmonary arterial hypertension. 2. Mild bibasilar densities suggest atelectasis. 3. Improved aeration of the lung bases. 161. Cardiomegaly with mild volume overload and early congestive change. No wyatt pulmonary edema. 2. Minimal bibasilar opacities likely atelectasis 17BiRads 3, prob benign; 2 small clusters of benign-appearing calcifications in L upper inner quadrant & 6:00 are stable 18[facility] Impression: ACR BI-RADS CATEGORY 3: PROBABLY BENIGN 1. Small cluster of punctate calcifications in the left upper inner quadrant is likely stable dating back to the 2010 exam, and is probably benign. Clustered calcifications in the left 6:00 breast appear more coarsened compared to the 2014 exam, and are probably benign. Recommencd follow-up diagnostic mammograms of the left breast in 6 months to confirm stability on spot magnification views. 2. The right lateral breast asymmetry effaces on the additionals views and is most compatible with normal fibroglandular tissue. 19[facility] Impression: ACR BI-RADS 0: Incomplete evaluation: Need additional imaging evaluation The right lateral symmetry and left breast clustered microcalcifications needed additional imaging evaluation. The patient will be called for an appointment. 20Cardiomegaly. No obvious acute pulmonary disease. 211) Persistent mild narrowing and diminished haustral markings within the distal descending colon and proximal to mid sigmoid colon. Findings suggest chronic inflammartory change. 2) No definite mass identified 3) No evidence for bowel obstruction 4) A few sigmoid diverticula 5) The cecum is suboptimally evaluated due to residual stool 22Reviewed procedure and scope did NOT traverse the stricture. BE recommended 23Diverticulosis in the sigmoid colon. Stricture in the sigmoid colon No specimens collected. 24full reprot reviewed with renal cysts and pancreas head atrophy also stated in body of report 25Marked bowel wall thickening involoving the sigmoid colon with infiltration the preisigmoid fat andassociated diverticula. The findings likely reflect acute diverticulitis. Follow up imaging subsequent to antibiotic therapy should be considered to exclude an underlying mass. 26See report. 27Improving Chest. 28[facility] 1. Chest x-ray shows right lower lobe infiltrate. 29normal left ventricular size and thickness.LVEF calculated 50-55% with regional wall motion abnorma;lities.Anteroseptal and septal akinesis silmular to study in 09/2013. Anterior mitral valve proplalse (mild) with posteriorly- directed mitral regurgitation. Diastolic dysfunction. 30No mammographic evidence of malignancy. However comparison with prior outside mammograms is recommended to evaluate for subtle changes. The prior outside imaging has been requested and an addendum will be made when they are received. 31EF 50%; mild MR, diastolic dysfunction 32Done for rectal bleeding, procedure aborted. Showed: tortuous colon, diverticulosis. BE recommended. 33multiple hepatic cysts 34There are findings of congestive failure, possibly with basilar infiltrative change. Hilar enlargement, most likely related to central pulmonary vasculature. Vital Signs Most recent to oldest [Reference Range]: 1 Patient Weight 60.9 kg (11/07/23 10:06 AM) Heart Rate 63 bpm (11/07/23 10:06 AM) Respiratory Rate 20 br/min (11/07/23 10:06 AM) Blood Pressure 110/56mmHg (11/07/23 10:06 AM) Cuff Pulse Pressure 54 mmHg (11/07/23 10:06 AM) BP Location # 1 Left Arm (11/07/23 10:06 AM) Social History Social History Type Response Smoking Status Never smoked cigaret ibrahima Sex Female Sex Representation Female (finding) [facility] Note * GEORGIA Cutler, Denise Tatum: PERFORM Event Display: [facility] Note Authored Date: [id number] Chief Complaint discuss ongoing falls History of Present Illness Aurelio presents w/her sister, Kate, and an employee from [employer] Vernell,to discussrecent recurrent falls. Last clinic note from 11/01/2023 was reviewed today. Natalie recently experienced 3 falls. Last month she hadfallentwice.She had fallen early last month while in the bathroom. It was felt that she hadfallen asleep on the commode and fell forwardonto the floor, but did not sustain any injury. Her second fall was on 10/21/2023, which was discussed at last visit. She had fallen asleepin a chairin a common room. Kate, her sister, notes thatthe chair was 1 from their family and wasa chair that tilted, rocked andlikely not the safest chair for her to be sitting in. She had been with staff andfallen asleep while in the chair, which tilted forward andshe "face planted"onto the floor andhit her head on the wall. She did sustainbruising on her faceand a small laceration on her upper lip, which was evaluated at a local urgent care. Aurelio had refused ER evaluation. Urinalysis/urine culture were completedat the time of urgent care visit on 10/21/2023 and this was negative. On Monday, which was a few days ago jinhad woken up in the morning and was walking from her bedroom into the bathroom when she was suspected to have slipped and fallen on her buttocks. She did not sustain any injury, but because of frequent fallsa follow-up visit was scheduled. Kate notes that they did get her a new chair to sit inthe day as an oversized recliner and does not swivel ortilts, so hopefully this will prevent her from falling out of the chair should she fall asleep. Kate says "I do not think she is falling because of a health issue." After talking with staffthey realized that Aurelio has beenmore fatigued during the day, but is not sleepingat night and in the past when she had recurrent fallsthey felt it was partially due to daytime drowsiness.It reportedly takes Aurelio 2 to 3 hours to complete her bedtime routineand get ready for bed. Inthe last couple of years when she had been sleeping well staff washaving her get ready for bed around 3 PM andthis allowed her enough time to get ready, eat dinner andbe in bed by~6 PM; she would then be asleep by 8-9 PM.Somehow Aurelio's routine has gotten off track and now she is notst arting her bedtime routine until 8 to 9 PM and is not falling [id number] to 1 AM or later. She is thenwaking up around 0630 and has beennapping for 3 to 5 hours out of the day. She has chronically taken melatonin, but her sister would like this to be discontinued as it does not seem to be helping. Regarding ambulatory dysfunction and frequent falls, she does ambulate with the use of a rollator walker at all times. [facility] is staffed with [employer] [facility] Employees 26/09. When Aurelio is in the bathroomher rollator walker is typically beside her and the staff checks on her every few minutes.Also, she did have a rightorbital lesion removedin the last yearin [place] which was reportedly benign. Upon questioning, Aurelio's vision has "been normal"when checked locally at the eye doctor, but still has someptosis of the eyelid that is felt to benormalfollowing surgery. Only new medication in the last few months is Myrbetriq, which was started in August 2023. No syncope, confusion, slurred speech, headaches, blurred vision, diplopia, nausea, vomiting, seizures, loss of consciousness, dizziness, lightheadedness, chest pain, SOB, palpitations or tachycardia. Review of Systems ROS:All other systems negative, except HPI. Physical Exam Vitals & Measurements HR:63(Monitored) RR:20 BP:110/56 SpO2:95% WT:60.9kg WT:60.900kg(Dosing) PHQ2 Data(Data Documented on:11/07/2023 10:06) Emotional health assessment NEGATIVE General: Alert and oriented, No acute distress.Pleasant. Poor historian.History was received today by patient's sister, Kate, Rachid, staff from [employer] [facility]. Eye: Pupils are equal, round and reactive to light, Extraocular movements are intact, Normal conjunctiva. + ptosis of right eyelid that is chronic. HENT: Normocephalic. TMs clear bilaterally. Posterior pharynx is pink. Uvula rises midline. No drooling, stridor or cyanosis. + fading eccymosis under right eye. Neck: Supple, No lymphadenopathy, No thyromegaly. Respiratory: Lungs are clear to auscultation, Respirations are non-labored, Breath sounds are equal, Symmetrical chest wall expansion. Cardiovascular: Normal rate, Regular rhythm, No murmur, No gallop, Good pulses equal in all extremities, Normal peripheral perfusion. No LE edema. Abdomen: Normoactive BS x 4. Soft. No tenderness, palpable masses or organomegaly. Lymphatics: No submandibular, anterior or posterior cervical adenopathy palpable. Musculoskeletal Ambulates w/ rollator walker. FROM and 5/5 strength at BLE and BUE. Integumentary: Warm, [place]. +mild pallor.SeeHENTfindings. Neurologic: Alert, Oriented, Cranial Nerves II-XII are grossly intact. Cognition and Speech: Oriented, Speech clear and coherent, Functional cognition intact. Psychiatric: Cooperative, Appropriate mood & affect, Normal judgment, Nonsuicidal. Assessment/Plan 1.Frequent falls Frequent fallshave occurred in the last month. Aurelio has had 3 documented fallsin this timeframe. Last clinic note relating to falls was reviewed from 10/24/2023, as well as labs completed on the same day. In discussion withVernell and Kate, it sounds likethey are suspecting falls arerelated to drowsiness. Once had fallen off of the commodedue to falling asleep, another fall occurred when she fell asleep in a swivel chair and most recent fall occurred when shewas still drowsy after waking in the morningandlikely slipped in the bathroom. Her sister tells me that in the past when she had multiple falls they found that it was also related to fatigue and difficulty sle eping, but once they were able to get her in a better bedtime routine and she was sleeping better throughout the night falls decreased. Labs and urinalysis have been completed in the last 3 weeks and negative for obvious source of fatigue or infection. Orthostatic vitals were completed today and BPis chronically low, but did not have any orthostaticchanges, which is reassuring. We did discusshaving her continue ambulate with the use of rollator walker or other assistive device at all times. I would recommend considering updated brain imaging if falls continue to occur, whichpatient's sister declines today, but would be open to doingin the future if needed. We discussed physical therapy to evaluate patient'sstrength and balance, butthey declined at this time as patient had tried this in the pastwithout significant benefit. They were given written orders to discontinue her melatonin as this has not been helpful for sleep. They were given orders to start Aurelio's bedtime routine around 3 PMwith a goal of getting herin bed between 6 to 8 PM to fall asleep at a reasonable hour. Family and staff felt this workedwell for her previously. Most recently not been going to bed until early hours of the morningand is then excessively fatigued throughout the day. To follow up in 3-4 months as planned and sooner if needed. 2.Sleep disturbance Sleep disturbance is chronic and uncontrolled. Goal is resolution of symptoms. As above in 1. 3.Ambulatory dysfunction Ambulatory dysfunction is chronic and likely multifactorial. As above in #1. 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 devil artery Chronic cough Chronic hypotension Chronic hypotension Chronic kidney disease (CKD) Chronic systolic heart failure (disorder) Constipation, chronic Coronary arteriosclerosis Down syndrome Gastric ulceration Hypothyroidism Ischemic cardiomyopathy Ischemic cardiomyopathy Mitral regurgitation Orbital hemangioma PUD (peptic ulcer disease) Resolved Acute CHF Acute upper respiratory infection Altered mental status Anemia Annual physical exam Bilateral pneumonia Bleeding hemorrhoids Blood in ear canal Bright red rectal bleeding Choking episode Constipation Cough Cough Diverticulitis Diverticulitis Diverticulitis of intestine Excessive cerumen in left ear canal Fecal incontinence Fracture of finger of right hand GI bleed Impacted cerumen Influenza Influenza due to Influenza A virus Influenza due to Influenza B virus Irritant dermatitis Left lower zone pneumonia Leukocytosis Leukocytosis Leukopenia Nose congestion Platelet count below reference range Pneumonia Psoriasis of scalp Seborrheic dermatitis of scalp Trochanteric bursitis of right hip Procedure/Surgical History Bone density scan| Service Date: 4Chest x-ray| Service Date: 3Plain X-ray of all fingers of right hand| Service Date: 03/07/2022X-ray of fingers right| Service Date: 02/09/2022KUB X-ray| Service Date: 11/12/2021KUB X-ray| Service Date: 10/26/2021Upper GI (gastr ointestinal) endoscopy| Service Date: 10/20/2021EGD - Esophagogastroduodenoscopy| Service Date: 08/27/2021T of brain| Service Date: 08/01/2021one density scan| Service Date: 04/29/2021ystoscopy| Service Date: 04/02/2021have biopsy of skin| Service Date: 04/01/2021Ultrasound| Service Date: 09/11/2020bnormal ultrasound of kidney| Service Date: 09/11/2020hest X-ray 2V PA/lateral| Service Date: 04/19/2019Chest x-ray| Service Date: 12/05/2018Abnormal mammogram| Service Date: 09/02/2016Mammogram| Service Date: 03/03/2016Mammogram| Service Date: 02/24/2016CXR - Chest X-ray| Service Date: 05/30/2015Barium enema| Service Date: 02/10/2015Colonoscopy|Service Date: 01/23/2015CT of abdomen and pelvis| Service Date: 12/01/2014Echocardiogram| Service Date: 11/11/2014CXR - Chest X-ray| Service Date: 11/03/2014Chest x-ray| Service Date: 09/28/2014Echocardiogram| Service Date: 04/29/2014Mammogram - screening| Service Date: 12/26/2013Cardiac echo| Service Date: 09/26/2012Colonoscopy abnormal| Service Date: 08/07/2012Ultrasound, abdominal, real time with image documentation; complete| Service Date: 07/04/2012Repair of esophageal hiatal hernia by abdominal approach| Service Date: 03/17/2010Laser ablation of long saphenous vein| Service Date: 11/11/2009Hemorrhoidectomy| Service Date: 03/06/1976History of tonsi llectomy| Service Date: 6CXR - Chest X-rayBilateral tubal ligationCataract Medications alendronate(alendronate 70 mg oral tablet), 1 tab, PO, q7days cholecalciferol(Vitamin D3 1000 intl units (25 mcg) oral tablet), 1000 Int_Unit, PO, Daily, 11 refills conjugated estrogens topical(Premarin 0.625 mg/g vaginal cream with applicator), See Instructions, 2 refills cyanocobalamin(Vitamin B-12 250 mcg oral tablet), 1 tab, PO, Daily docusate(docusate sodium 100 mg oral capsule), 2 cap, PO, qhs escitalopram(escitalopram 20 mg oral tablet), 1 tab, PO, Daily fludrocortisone(fludrocortisone 0.1 mg oral tablet), 1 tab, PO, Daily, 11 refills fluticasone nasal(fluticasone 27.5 mcg/inh nasal spray), 2 spray, each nostril, Daily, PRN, 11 refills furosemide(furosemide 20 mg oral tablet), See Instructions, 5 refills hydrocortisone topical(Procto-Med HC 2.5% topical cream), See Instructions lactobacillus acidophilus(Acidophilus Probiotic Blend oral capsule), 1 cap, PO, Daily levothyroxine(levothyroxine 75 mcg (0.075 mg) oral tablet), 1 tab, PO, Daily magnesium hydroxide(Milk of Magnesia 8% oral suspension), 30 mL, PO, qhs, PRN mirabegron(Myrbetriq 25 mg oral tablet, extended release) pantoprazole(pantoprazole 40 mg oral delayed release tablet), 1 tab, PO, Daily polyethylene glycol 3350(polyethylene glycol 3350 oral powder for reconstitution), See Instructions pravastatin(pravastatin 20 mg oral tablet), 1 tab, PO, Daily senna(Senna-Time 8.6 mg oral tablet), 1 tab, PO, qhs unlisted medication(Fish Oil Softgel 1000mg Lemon 100+25), 1 cap, PO, Daily unlisted medication(Fish Oil Softgel 1000mg Lemon 100+25), 1 cap, PO, Daily unlisted medication(Vit D3 1000iu Softgel 200+50), 1 cap, PO, Daily unlisted medication(Vit D3 1000iu Softgel 200+50), 1 cap, PO, Daily Allergies NKA Social History Smoking Status Never smoked cigarettes Alcohol - Denies Alcohol Use Employment/School Status:Retired - Comments: 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 Sexual - No Sexual Activity Substance Abuse - Denies Substance Abuse Tobacco - Denies Tobacco Use Use:Never smoker Family History Liver cancer: Brother. Health Status Family Member(s) Immunizations Vaccine Date Status SARS COVID Vaccine Unspecified 12/16/2022 Recorded SARS-CoV-2 (COVID-19) mRNA-vacc - [id number] 12/13/2022 Recorded influenza virus vaccine, inactivated 12/10/2021 Recorded SARS-CoV-2 mRNA (tozinameran 5y-11y) 12/10/2021 Recorded hepatitis B adult vaccine 10/25/2021 Given SARS-CoV-2 (COVID-19) mRNA-1273 vaccine 08/13/2021 Recorded Comments : Route: Unknown hepatitis B adult vaccine 05/25/2021 Given tetanus/diphtheria/pertuss, acel (Tdap) 04/27/2021 Given hepatitis B adult vaccine 04/27/2021 Given SARS-CoV-2 (COVID-19) mRNA-1273 vaccine 01/22/2021 Recorded Comments : 2021-01-25: Historical information-source unspecified influenza virus vaccine, inactivated 12/23/2020 Recorded Comments : Route: Unknown influenza virus vaccine, inactivated 12/23/2020 Recorded SARS-CoV-2 (COVID-19) mRNA-1273 vaccine 05/09/2020 Recorded Comments : 2021-01-25: Historical information-source unspecified SARS-CoV-2 (COVID-19) ChAdOx1 vaccine 05/08/2020 Recorded SARS-CoV-2 (COVID-19) mRNA-1273 vaccine 04/11/2020 Recorded Comments : 2020-04-14: Historical information-source unspecified zoster vaccine, inactivated 02/13/2020 Given Comments : adjuvant exp 12/04/2021 lot# [id number] caregiver present, neither patient or caregiver voice concerns this day. patient tolerated well influenza virus vaccine, inactivated 12/23/2019 Given zoster vaccine, inactivated 10/15/2019 Given pneumococcal 23-valent vaccine 04/04/2018 Given pneumococcal 13-valent vaccine 12/19/2016 Given Recommendations Health Maintenance Pending(in the next year) OverDue Breast Cancer Screening due09/03/18and every 731day Falls Plan of Care due12/29/22and every 1year Medicare Annual Wellness Visit due04/19/23and every 1year Body Mass Index due04/20/23and every 366day Adult Influenza Vaccine due09/03/23and every 1year Due Adult Social Determinants of Health Screening due11/07/23Unknown Frequency Hepatitis C Screening due11/07/23One-time only Satisfied(in the past 1 year) Satisfied Lipid Screening on10/24/23.Satisfied by Contributor_system, [id number] Patient Care team information Care Team Personnel Name: RAJEEV Kingston Janet Griffith Position: Nurse Pract - Pulmonary Med Member Role: Lifetime Relationship Address: [address] [place] [id number] Name: MD Leroy, Lulu Lagos Position: Physician - Family Med Member Role: Primary Care Provider Address: [address] [place] [address] [address] [place] [address] Name: Robb Montanez Joy Position: Pharmacist Schedule II Member Role: Pharmacy - Lifetime Care Team Related Persons Name: LARRY ARELLANO Name: LAVELLE SILVA
[2023-11-21] MEDS: ALBUTEROL 0.083% NEBU SOLN 3 ML VIAL INH SCH (20:31)
[2023-11-21] MEDS ORDERED: TOBRAMYCIN/DEXAMETHASONE OPH SUSP 2.5 ML BTL OP SCH (21:00)
[2023-11-22] MEDS: LEVOTHYROXINE SODIUM 75 MCG TABLET PO SCH (05:37)
[2023-11-22 07:19] LABS: Hematocrit (blood only) 32.9 % (37.0-47.0); Hemoglobin 10.8 g/dl (12.0-16.0); Immature Granulocytes # (auto) 0.02 K/uL (0.01-0.20); Immature Granulocytes % (auto) 0.5 %; Lymphocytes # (auto) 0.46 K/uL (1.20-3.40); Lymphocytes % (auto) 11.6 %; Mean Corpuscular Hemoglobin 30.8 pg (25.0-34.0); Mean Corpuscular Hgb Conc 32.8 g/dL (32.0-36.0); Mean Corpuscular Volume 93.7 fL (80.0-100.0); Mean Platelet Volume 9.4 fL (9.4-12.4); Monocytes % (auto) 7.6 %; Neutrophils # (auto) 3.19 K/uL (1.40-6.50); Neutrophils % (auto) 80.3 %; Platelet Count 133 K/uL (130-400); RDW Coefficient of Variation 13.4 % (11.5-14.5); Red Blood Count 3.51 M/uL (4.20-5.40); White Blood Count 3.97 K/ul (4.8-10.8)
--- NOTE | 2023-11-22 07:30 | Electrocardiogram Report ---
Test Reason : Blood Pressure : */* mmHG Vent. Rate : 85 BPM Atrial Rate : 85 BPM P-R Int : 150 ms QRS Dur : 128 ms QT Int : 434 ms P-R-T Axes : 47 -44 78 degrees QTcB Int : 516 ms Normal sinus rhythm Left axis deviation Left bundle branch block Abnormal ECG When compared with ECG of 27-Aug-2021 06:09, Left bundle branch block now complete Confirmed by Sachin Ballard ([id number]) on 11/21/2023 4:03:26 PM Referred By: REFERRED SELF Confirmed By: Sachin Ballard
[2023-11-22 07:37] LABS: BUN Creatinine Ratio 24.6 (10-20); Calcium 8.1 mg/dl (8.6-10.3); Creatinine Clr Calc Pharmacy 54.3 ml/min; Est GFR (African American) 102.8 ml/min; Est GFR (Non-African American) 88.7 ml/min; Magnesium 1.8 mg/dl (1.7-2.4); Potassium 3.8 mmol/L (3.5-5.1)
[2023-11-22 07:57] LABS: INR 1.1 (0.9-1.1); Prothrombin Time 11.6 Seconds (9.0-12.0)
[2023-11-22] MEDS: dexAMETHasone 6 MG in SYRINGE 0 ML IV SCH (08:40)
[2023-11-22] MEDS: METOPROLOL SUCC 25MG EXT REL TAB PO SCH (08:40)
[2023-11-22] MEDS: VIBEGRON 75 MG TAB PO SCH (08:41)
[2023-11-22] MEDS: PRAVASTATIN SOD 20 MG TAB PO SCH (08:42)
[2023-11-22] MEDS: guaiFENesin SUGAR FREE 200 MG/10 ML UDC PO PRN (08:42)
[2023-11-22] MEDS: PANTOprazole 40 MG TAB PO SCH (08:42)
[2023-11-22] MEDS: ESCITALOPRAM OXALATE 20 MG TAB PO SCH (08:42)
[2023-11-22] MEDS: FLUDROCORTISONE ACETATE 0.1 MG TAB PO SCH (08:43)
[2023-11-22] MEDS ORDERED: DEXAMETHASONE SOD INJ 4 MG/ML VIAL IV SCH (09:00)
[2023-11-22] MEDS: REMDESIVIR 100 MG in SODIUM CHLORIDE 0.9% 230 ML IV SCH (12:07)
--- NOTE | 2023-11-22 17:21 | XCELERA ---
[id number] \\[email or web address]_[email or web address]\[id number]}___[id number].pdf
--- NOTE | 2023-11-22 18:03 | Hospitalist Progress Note ---
Date of Service November 22, 2023 Assessment & Plan (1) COVID-19: Plan: Positive on home test and on her PCR testing today c/w 6 mg IV dexamethasone daily for total of 10 days and 5 days of remdesivir therapy Incentive spirometry, flutter therapy, as needed O2 to keep SpO2 at or above 92%, as needed albuterol Tylenol repeat CXR AM labs (2) Hypoxia: Plan: On arrival noted to be hypoxic with SpO2 in the mid to high 80s on room air both at home and ED. Likely a combination of acute COVID-19 infection and acute CHF exacerbation with interstitial pulmonary congestion and mild pleural effusions Spirometry, flutter therapy, as needed albuterol, - O2 to keep SpO2 at or above 92% (3) Generalized weakness: Plan: Presented to ED via EMS for increased generalized weakness and hypoxia with SpO2 in the mid to high 80s on room air after testing positive on home COVID-19 test on 11/20/2023 Patient is nonfocal on exam but generally weak likely due to her acute COVID- 19 infection Fall/aspiration precautions PT/OT SQ Lovenox for DVT prophylaxis easy to chew texture (4) Hypokalemia: Plan: Potassium noted to be 3.4 on arrival with mag of 1.8 Will give 3 bags of 10 mEq IV KCl now as she is too fatigued to safely take p.o. KCl at this time Continue to monitor daily renal function and electrolytes Continue to monitor on telemetry (5) Elevated troponin: Plan: likely 2/2 demand ischemia due to demand from hypoxia and acute COVID-19 infection - Initial high-sensitivity troponin mildly elevated at 22 -->17.8 ECG: LBBB(old), no new acute ST/T changes Continue to monitor on telemetry Present on Admission?: Yes (6) Hypothyroidism: Plan: Continue levothyroxine (7) CHF (congestive heart failure): Plan: acute on chronic likely due to COVID inf Hypoxia on presentation 88% on RA BNP 627 CXR lungs congested, cardiomegaly ECG: LBBB(old), no new acute ST/T changes Echo (11/21) LVEF 45-50% (reduced compared to previous study), mild dilatation and global hypokinesia. Trops 22 --> 17.8 , likely demand ischemia. Plan: IV Lasix 20mg PRN repeat CXR AM labs Aim for K>4, Mg >2 I/O daily weights Tele maintain O2>92% Present on Admission?: Yes Supervising Physician Co-Signing Physician Notes Attending Physician Supervision Note: I independently interviewed and examined the patient and verified the garrett history and physical, reviewed labs and image studies and agree with findings and care plan noted above. 73y/o here with SOB and hypoxia requiring 2 L nasal cannula oxygen and COVID- positive x 24 hours. vitals noted nad heent nc at mmm breathing unlabored no accessory muscles good effort skin no rashes no pallor or icterus neuro no focal deficits. Lungs with crackles, +JVD Acute on chronic systolic/diastolic heart failure - s/p dose of lasix in ED. Creatinine stable. On lasix 20mgs 3 times a wk. -Add another dose of lasix 40mgs IV today -Troponin elevation - Likely Demand ischemia COVID - outbreak at her [facility]. No pnemonia findings on xray. Continue Dexamethasone. Remdesivir discussion as above. PT/OT eval Lovenox. Subjective Alert awake on room air sats 92-93%. not in any acute respiratory distress. No acute events per nurse. Review of Systems Review of Systems: Constitutional: denies fever, chills HEENT: denies congestion, sore throat Cardio: denies chest pain, palpitations Resp: denies shortness of breath, cough GI: denies abdominal pain, nausea, vomiting, constipation, diarrhea : denies pain with urination, change in urinary frequency Neuro: denies new numbness, tingling, weakness Physical Exam Physical Exam: General: In no acute distress, breathing on room air. HEENT: Normocephalic, atraumatic, no scleral icterus, right eye currently mildly swollen and erythematous due to known conjunctivitis which is being treated and followed outpatient by ophthalmology, bilateral pupils are round, symmetrical, and reactive to light, dry mucus membranes, trachea midline, no thyromegaly Chest/Pulm: No respiratory distress, symmetrical chest expansion, crackles noted Lt>Rt. 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 Extremities: Radial, dorsalis pedis, and posterior tibial pulses are intact and symmetrical, no edema noted in the BL LE's Skin: Warm, dry, no rashes , lesions, or scars noted Neuro: Alert and oriented to person only (caregiver at bedside states that patient is at her neurologic baseline but just fatigued), no focal defects, no tremors noted Psych: No acute distress, fatigued but pleasant and cooperative with exam Results & Data Results & Data Vital Signs (Past 12 Hours) Vital Signs Temp Pulse Pulse Resp BP BP Pulse Ox 11/22/23 16:11 81 11/22/23 15:24 36.9 C 76 20 109/61 94 11/22/23 13:13 78 18 86 L 11/22/23 12:51 36.7 C 79 19 113/72 91 11/22/23 09:48 11/22/23 07:36 83 18 92 11/22/23 07:29 82 11/22/23 07:21 36.9 C 82 18 113/72 92 O2 Del Method O2 Flow Rate 11/22/23 16:11 11/22/23 15:24 Nasal Cannula 2 11/22/23 13:13 Room Air 11/22/23 12:51 Room Air 11/22/23 09:48 Room Air 11/22/23 07:36 Room Air 11/22/23 07:29 11/22/23 07:21 Nasal Cannula 3 Resident Activity Tracking Resident Involvement: Resident Care Provided Care Provided: Adult Hospital Medicine (6) Hypothyroidism Hypothyroidism type: unspecified Qualified Code(s): E03.9 - Hypothyroidism, unspecified (7) CHF (congestive heart failure) Heart failure chronicity: acute on chronic Heart failure type: unspecified Qualified Code(s): I50.9 - Heart failure, unspecified
[2023-11-22] MEDS: FUROSEMIDE 40 MG/4 ML VIAL IV ONE (20:09)
[2023-11-23 07:20] LABS: Hematocrit (blood only) 32.7 % (37.0-47.0); Hemoglobin 10.4 g/dl (12.0-16.0); Immature Granulocytes # (auto) 0.03 K/uL (0.01-0.20); Immature Granulocytes % (auto) 0.5 %; Lymphocytes # (auto) 0.53 K/uL (1.20-3.40); Lymphocytes % (auto) 8.2 %; Mean Corpuscular Hemoglobin 30.1 pg (25.0-34.0); Mean Corpuscular Hgb Conc 31.8 g/dL (32.0-36.0); Mean Corpuscular Volume 94.5 fL (80.0-100.0); Mean Platelet Volume 9.6 fL (9.4-12.4); Monocytes # (auto) 0.49 K/uL (0.11-0.59); Monocytes % (auto) 7.6 %; Neutrophils # (auto) 5.43 K/uL (1.40-6.50); Neutrophils % (auto) 83.7 %; Platelet Count 158 K/uL (130-400); RDW Coefficient of Variation 13.4 % (11.5-14.5); RDW Standard Deviation 45.8 fL (36.4-46.3); Red Blood Count 3.46 M/uL (4.20-5.40); White Blood Count 6.48 K/ul (4.8-10.8)
[2023-11-23 07:39] LABS: Alanine Aminotransferase 33 U/L (7-52); Anion Gap 7 (3-11); BUN Creatinine Ratio 37.8 (10-20); Blood Urea Nitrogen 31 mg/dl (6-23); Calcium 8.1 mg/dl (8.6-10.3); Carbon Dioxide 33 mmol/L (21-32); Chloride 101 mmol/L (98-107); Est GFR (African American) 82.9 ml/min; Est GFR (Non-African American) 71.5 ml/min; Glucose 154 mg/dl (70-99(Fasting)); Sodium 141 mmol/L (136-145)
[2023-11-23 07:42] LABS: INR 1.1 (0.9-1.1); Prothrombin Time 12.1 Seconds (9.0-12.0)
[2023-11-23] MEDS ORDERED: ALBUTEROL 0.083% NEBU SOLN 3 ML VIAL INH PRN (07:50)
--- NOTE | 2023-11-23 10:51 | XRay Report ---
XR chest 1V portable CLINICAL HISTORY: Congestive heart failure. COMPARISON STUDY: Chest radiograph November 21, 2023. FINDINGS: There is no pneumothorax. There are small bilateral pleural effusions. Cardiomegaly is agai n noted. Suspected dilatation of the central pulmonary arteries is present. Pulmonary edema persists. IMPRESSION: Cardiomegaly. No significant change in pulmonary edema and small bilateral pleural effus ions. ACT 112: Negative or not required by law. Electronically signed by: Ozzie Masters M.D. 11/23/2023 10:49 AM
[2023-11-23 11:22] LABS: Potassium 3.4 mmol/L (3.5-5.1)
[2023-11-23] MEDS: FUROSEMIDE 40 MG/4 ML VIAL IV ONE (12:34)
--- NOTE | 2023-11-23 12:47 | Hospitalist Progress Note ---
Date of Service November 23, 2023 Assessment & Plan (1) COVID-19: Plan: Clinically improving slowly. On room air this AM. More alert and chatty today Needed O2 2L overnight for 4-6 hours. A repeat CXR done today,reported: Cardiomegaly. No significant change in pulmonary edema and small bilateral pleural effusions. Plan: c/w 6 mg IV dexamethasone daily for total of 10 days and 5 days of remdesvir therapy Incentive spirometry, flutter therapy, as needed O2 to keep SpO2 at or above 92%, as needed albuterol -c/w Tylenol -repeat CXR -AM labs (2) CHF (congestive heart failure): Plan: Acute on chronic CHF possibly triggered by acute COVID infection due to increased demand. Echo (11/21) LVEF 45-50% (reduced compared to previous study), mild dilatation and global hypokinesia. Today Lungs Crackles Lt>Rt, reduced sounds at bases B/L. Today I/O 1090/676 weight 59.7 -->59 --> 58.7 kg K=3.4 Mg=2 IV Lasix 40mg given this AM. Plan: check AM labs (3) Hypothyroidism: Plan: Continue levothyroxine Admission and Anticipated Discharge Date Admission Date: November 21, 2023 Supervising Physician Co-Signing Physician Notes Attending Physician Supervision Note: I independently interviewed and examined the patient and verified the garertt history and physical, reviewed labs and image studies and agree with findings and care plan noted above. 73y/o here with SOB and hypoxia requiring 2 L nasal cannula oxygen and COVID- positive x 24 hours. vitals noted nad heent nc at mmm breathing unlabored no accessory muscles good effort skin no rashes no pallor or icterus neuro no focal deficits. Lungs + crackles, +JVD Acute on chronic systolic/diastolic heart failure - On lasix 20mgs 3 times a wk. -No accurate I and O to assess. Weight dropping. Repeat 40mgs IV lasix dose today. follow bmp Troponin elevation - Likely Demand ischemia COVID - outbreak at her [facility] [place]. No pnemonia findings on xray. Continue Dexamethasone. Remdesivir as above. Hypoxia - resolved. PT/OT eval - to return back to [facility] [place] Lovenox. Subjective Alert awake on room air sats 92-93%. not in any acute respiratory distress. Nurse reports that pt desat. to 88% last night, she was put on O2 2L, now she is off O2 sating at 92% on room air. Not in any acute respiratory distress. Having her breakfast. No cough , phlegm , fevers or chills reported. Review of Systems Review of Systems: Constitutional: denies fever, chills. HEENT: denies congestion, sore throat Cardio: denies chest pain, palpitations Resp: denies shortness of breath, cough GI: denies abdominal pain, nausea, vomiting, constipation, diarrhea : denies pain with urination, change in urinary frequency Neuro: denies new numbness, tingling, weakness Physical Exam Physical Exam: General: In no acute distress, breathing on room air, sat out in chair. HEENT: Normocephalic, atraumatic, no scleral icterus, right eye currently mildly swollen and erythematous due to known conjunctivitis which is being treated and followed outpatient by ophthalmology, bilateral pupils are round, symmetrical, and reactive to light, dry mucus membranes, trachea midline, no thyromegaly Chest/Pulm: No respiratory distress, crackles Lt>Rt (no change since yesterday), reduced sounds at the bases.. 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 Extremities: Radial, dorsalis pedis, and posterior tibial pulses are intact and symmetrical, no edema noted in the BL LE's Skin: Warm, dry, no rashes , lesions, or scars noted Neuro: Alert and oriented to TPP Psych: No acute distress, fatigued but pleasant and cooperative with exam Results & Data Results & Data Vital Signs (Past 12 Hours) Vital Signs Temp Pulse Pulse Resp BP Pulse Ox O2 Del Method 11/23/23 10:52 36.7 C 67 16 114/62 96 Room Air 11/23/23 07:30 70 18 93 Nasal Cannula 11/23/23 07:07 72 11/23/23 07:00 Room Air 11/23/23 07:00 36.5 C 75 18 127/80 92 Room Air 11/23/23 03:00 36.5 C 65 18 112/68 91 Nasal Cannula 11/23/23 00:49 69 17 90 Room Air O2 Flow Rate 11/23/23 10:52 11/23/23 07:30 0.5 11/23/23 07:07 11/23/23 07:00 11/23/23 07:00 11/23/23 03:00 2 11/23/23 00:49 Resident Activity Tracking Resident Involvement: Resident Care Provided Care Provided: Adult Hospital Medicine (2) CHF (congestive heart failure) Heart failure chronicity: acute on chronic Heart failure type: combined systolic and diastolic Qualified Code(s): I50.43 - Acute on chronic combined systolic (congestive) and diastolic (congestive) heart failure (3) Hypothyroidism Hypothyroidism type: unspecified Qualified Code(s): E03.9 - Hypothyroidism, unspecified
[2023-11-24 07:07] LABS: Calcium 8.1 mg/dl (8.6-10.3); Potassium 3.3 mmol/L (3.5-5.1)
--- NOTE | 2023-11-24 07:11 | Hospitalist Progress Note ---
Date of Service November 24, 2023 Assessment & Plan (1) COVID-19: Plan: Day 3 of Remdesivir. Needed O2 2L again overnight for 4-6 hours. A repeat CXR done today,reported: No change in the pulmonary edema and patchy bibasilar densities. No hx of fevers since admission. To r/o secondary bacterial infection a Procalcitonin level was done today that was, <0.02, normal. Pt had a 6 beats VT, recorded on Tele @15:43.Pt was Asymptomatic. 12 lead ECG showed no acute changes compared to the admission EKG. checked, Pt clinically same, stable. Plan: c/w 6 mg IV dexamethasone daily for total of 10 days and 5 days of Remdesvir therapy Incentive spirometry, flutter therapy, as needed O2 to keep SpO2 at or above 92%, as needed albuterol -c/w Tylenol -repeat tomorrow CXR -AM labs (2) CHF (congestive heart failure): Plan: Acute on chronic CHF possibly triggered by acute COVID infection due to increased demand. Echo (11/21) LVEF 45-50% (reduced compared to previous study), mild dilatation and global hypokinesia. Today Lungs Crackles Lt>Rt, reduced sounds at bases B/L. Today I/O 1010/(no record) weight 59.7 -->59 --> 58.7-->60.5 kg K=3.3 Mg=2.0 Plan: Check AM labs IV Bumex 1mg PRN (3) Hypothyroidism: Plan: Continue levothyroxine Admission and Anticipated Discharge Date Admission Date: November 21, 2023 Supervising Physician Co-Signing Physician Notes Attending Physician Supervision Note: I independently interviewed and examined the patient and verified the garrett history and physical, reviewed labs and image studies and agree with findings and care plan noted above. 73y/o here with SOB and hypoxia requiring 2 L nasal cannula oxygen and COVID- positive x 24 hours. vitals noted nad heent nc at mmm breathing unlabored no accessory muscles good effort skin no rashes no pallor or icterus neuro no focal deficits. Lungs + crackles, +JVD Acute on chronic systolic/diastolic heart failure - On lasix 20mgs 3 times a wk. -No accurate I and O to assess. Weight unchagned. -Trial bumex one dose and follow. follow bmp Troponin elevation - Likely Demand ischemia COVID - outbreak at her [facility]. No pnemonia findings on xray. Continue Dexamethasone. Remdesivir as above. Procalcitonin level normal. Hypoxia - resolved. PT/OT eval - to return back to [facility]. Subjective Pt was lying flat in her bed breathing on room air sats 92-93%. not in any acute respiratory distress. Nurse reports that pt desaturated again last night that she needed 2L O2. Pt snores heavily at night wondering ?PAUL. Review of Systems Review of Systems: Constitutional: denies fever, chills. HEENT: denies congestion, sore throat Cardio: denies chest pain, palpitations Resp: denies shortness of breath, cough GI: denies abdominal pain, nausea, vomiting, constipation, diarrhea : denies pain with urination, change in urinary frequency Neuro: denies new numbness, tingling, weakness Physical Exam Physical Exam: General: In no acute distress, breathing on room air. HEENT: Normocephalic, atraumatic. Chest/Pulm: No respiratory distress, crackles Lt=Rt, reduced sounds at the bases.. 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 Results & Data Results & Data Vital Signs (Past 12 Hours) Vital Signs Temp Pulse Pulse Resp BP Pulse Ox O2 Del Method 11/24/23 07:03 69 11/24/23 03:13 36.4 C L 67 16 124/78 97 Nasal Cannula 11/23/23 23:34 36.7 C 69 18 113/72 95 Nasal Cannula 11/23/23 21:44 67 11/23/23 20:00 Room Air O2 Flow Rate 11/24/23 07:03 11/24/23 03:13 2 11/23/23 23:34 2 11/23/23 21:44 11/23/23 20:00 Resident Activity Tracking Resident Involvement: Resident Care Provided Care Provided: Adult Hospital Medicine (2) CHF (congestive heart failure) Heart failure chronicity: acute on chronic Heart failure type: combined systolic and diastolic Qualified Code(s): I50.43 - Acute on chronic combined systolic (congestive) and diastolic (congestive) heart failure (3) Hypothyroidism Hypothyroidism type: unspecified Qualified Code(s): E03.9 - Hypothyroidism, unspecified
[2023-11-24 07:13] LABS: BUN Creatinine Ratio 41.7 (10-20); Creatinine Clr Calc Pharmacy 49.7 ml/min; Est GFR (Non-African American) 83.7 ml/min
[2023-11-24 07:30] LABS: INR 1.1 (0.9-1.1); Prothrombin Time 11.8 Seconds (9.0-12.0)
--- NOTE | 2023-11-24 07:34 | XRay Report ---
XR chest 1V portable HISTORY: CHF COMPARISON: Chest 11/23/2023. FINDINGS: No pneumothorax. The heart remains enlarged. Pulmonary edema and patchy bibasilar densities persist. Trace bilateral pleural effusions are again noted. No acute fractures. IMPRESSION: No change in the pulmonary edema and patchy bibasilar densities. ACT 112: Negative or not required by law. Electronically signed by: Sukhwinder Marx M.D. 11/24/2023 7:33 AM
[2023-11-24 07:40] LABS: Eosinophils # (auto) 0.01 K/uL (0.00-0.50); Eosinophils % (auto) 0.2 %; Hematocrit (blood only) 32.2 % (37.0-47.0); Hemoglobin 10.3 g/dl (12.0-16.0); Immature Granulocytes # (auto) 0.04 K/uL (0.01-0.20); Immature Granulocytes % (auto) 0.7 %; Lymphocytes # (auto) 0.52 K/uL (1.20-3.40); Lymphocytes % (auto) 9.3 %; Mean Corpuscular Volume 93.9 fL (80.0-100.0); Mean Platelet Volume 9.5 fL (9.4-12.4); Monocytes % (auto) 7.1 %; Neutrophils # (auto) 4.65 K/uL (1.40-6.50); Neutrophils % (auto) 82.7 %; Platelet Count 146 K/uL (130-400); RDW Coefficient of Variation 13.4 % (11.5-14.5); RDW Standard Deviation 46.4 fL (36.4-46.3); Red Blood Count 3.43 M/uL (4.20-5.40); White Blood Count 5.62 K/ul (4.8-10.8)
[2023-11-24] MEDS: POTASSIUM CHLORIDE CRTAB 20 MEQ TABCR PO STA (08:51)
[2023-11-25 07:31] LABS: Calcium 8.5 mg/dl (8.6-10.3); Est GFR (African American) 85.4 ml/min; Est GFR (Non-African American) 73.7 ml/min; Magnesium 2.1 mg/dl (1.7-2.4)
--- NOTE | 2023-11-25 07:57 | XRay Report ---
XR chest 1V portable HISTORY: 73 years-old Female CHF acute shortness of breath with congestive heart failure COMPARISON: 11/24/2023 TECHNIQUE: AP view of the chest FINDINGS: Cardiac silhouette is enlarged. There is no pneumothorax. Small pleural effusions. Mixed interstitial and alveolar opacities are redemonstrated and appear stable to slightly progressed. Bones appear int act. IMPRESSION: 1. Cardiomegaly with stable to mildly progressed pulmonary edema. 2. Small pleural effusions. ACT 112: Negative or not required by law. The above report was generated using voice recognition software. It may contain grammatical, syntax o r spelling errors. Electronically signed by: Joshua Lucas M.D. 11/25/2023 7:55 AM
[2023-11-25] MEDS: BUMETANIDE 2 MG in SYRINGE 0 ML IV ONE (08:44)
--- NOTE | 2023-11-25 11:26 | Electrocardiogram Report ---
Test Reason : Blood Pressure : */* mmHG Vent. Rate : 62 BPM Atrial Rate : 62 BPM P-R Int : 142 ms QRS Dur : 120 ms QT Int : 480 ms P-R-T Axes : 48 -36 41 degrees QTcB Int : 487 ms Sinus rhythm with occasional Premature ventricular complexes Left axis deviation Inferior infarct (cited on or before 21-Nov-2023) Anterior infarct (cited on or before 19-Mar-2019) Abnormal ECG When compared with ECG of 21-Nov-2023 11:54, Premature ventricular complexes are now Present Confirmed by Juni Redman ([id number]) on 11/25/2023 11:26:11 AM Referred By: REFERRED SELF Confirmed By: Juni Redman
--- NOTE | 2023-11-25 11:26 | Hospitalist Progress Note ---
Date of Service November 25, 2023 Assessment & Plan (1) COVID-19: Plan: Day 4 of Remdesivir. On 2L NC 93-95% A repeat CXR done today,reported: 1. Cardiomegaly with stable to mildly progressed pulmonary edema. 2. Small pleural effusions Plan: c/w 6 mg IV dexamethasone daily for total of 10 days and 5 days of Remdesvir therapy Incentive spirometry, flutter therapy, as needed O2 to keep SpO2 at or above 92%, as needed albuterol -c/w Tylenol -AM labs (2) CHF (congestive heart failure): Plan: Acute on chronic CHF possibly triggered by acute COVID infection due to increased demand. Echo (11/21) LVEF 45-50% (reduced compared to previous study), mild dilatation and global hypokinesia. Today Lungs Crackles Lt>Rt, reduced sounds at bases B/L. Today I/O 920/(no record) weight 59.7 -->59 --> 58.7-->60.5 -->61.1kg K=4.0 Mg=2.1 Plan: Check AM labs Given IV Bumex 2mg this AM (3) Hypothyroidism: Plan: Continue levothyroxine Admission and Anticipated Discharge Date Admission Date: November 21, 2023 Supervising Physician Co-Signing Physician Notes Attending Physician Supervision Note: I independently interviewed and examined the patient and verified the garrett history and physical, reviewed labs and image studies and agree with findings and care plan noted above. 73y/o here with SOB and hypoxia requiring 2 L nasal cannula oxygen and COVID- positive x 24 hours. vitals noted nad heent nc at mmm breathing unlabored no accessory muscles good effort skin no rashes no pallor or icterus neuro no focal deficits. Lungs CTA, +JVD Acute on chronic HFmrEF with diastolic dysfunction - On lasix 20mgs 3 times a wk. -No accurate I and O to assess. Weight unchanged. -Trial bumex. follow bmp -Already on beta Cecile. consider adding ARB and dapagliflozin once volume stabilized. Troponin elevation - Likely Demand ischemia COVID - outbreak at her [facility]. No pnemonia findings on xray. Continue Dexamethasone. finished remdesivir. Procalcitonin level normal. Hypoxia - resolved. PT/OT eval - to return back to [facility] Lovenox. Subjective Pt was lying in her bed sats 92-93% pt on 2L NC. Not in any respiratory distress. Review of Systems Review of Systems: Constitutional: denies fever, chills. HEENT: denies congestion, sore throat Cardio: denies chest pain, palpitations Resp: denies shortness of breath, cough GI: denies abdominal pain, nausea, vomiting, constipation, diarrhea : denies pain with urination, change in urinary frequency Neuro: denies new numbness, tingling, weakness Physical Exam Physical Exam: General: In no acute distress. HEENT: Normocephalic, atraumatic. Chest/Pulm: No respiratory distress, crackles Lt=Rt, reduced sounds at the bases.. 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 Results & Data Results & Data Vital Signs (Past 12 Hours) Vital Signs Temp Pulse Pulse Resp BP BP Pulse Ox 11/25/23 09:15 65 11/25/23 08:59 36.5 C 67 16 115/80 99 11/25/23 07:28 11/25/23 03:19 36.6 C 69 18 137/68 100 11/25/23 00:16 36.6 C 68 18 110/68 94 O2 Del Method O2 Flow Rate 11/25/23 09:15 11/25/23 08:59 Nasal Cannula 2 11/25/23 07:28 Oxymask 2 11/25/23 03:19 Nasal Cannula 2 11/25/23 00:16 Nasal Cannula 2 (2) CHF (congestive heart failure) Heart failure chronicity: acute on chronic Heart failure type: combined systolic and diastolic Qualified Code(s): I50.43 - Acute on chronic combined systolic (congestive) and diastolic (congestive) heart failure (3) Hypothyroidism Hypothyroidism type: unspecified Qualified Code(s): E03.9 - Hypothyroidism, unspecified
[2023-11-26 06:41] LABS: BUN Creatinine Ratio 36.8 (10-20); Calcium 8.3 mg/dl (8.6-10.3); Creatinine Clr Calc Pharmacy 52.2 ml/min; Est GFR (African American) 101.3 ml/min; Est GFR (Non-African American) 87.4 ml/min; Potassium 3.5 mmol/L (3.5-5.1)
--- NOTE | 2023-11-26 07:33 | Hospitalist Progress Note ---
Date of Service November 26, 2023 Assessment & Plan (1) COVID-19: Plan: Day 5 of Remdesivir. On 2L NC 93-95% A repeat CXR 11/24,reported: 1. Cardiomegaly with stable to mildly progressed pulmonary edema. 2. Small pleural effusions Plan: c/w 6 mg IV dexamethasone daily for total of 10 days and 5 days of Remdesvir therapy Incentive spirometry, flutter therapy, as needed O2 to keep SpO2 at or above 92%, as needed albuterol -c/w Tylenol -AM labs (2) CHF (congestive heart failure): Plan: Acute on chronic CHF possibly triggered by acute COVID infection due to incr eased demand. Echo (11/21) LVEF 45-50% (reduced compared to previous study), mild dilatation and global hypokinesia. Today Lungs Crackles Lt>Rt, reduced sounds at bases B/L. Today I/O 920/(no record) weight 59.7 -->59 --> 58.7-->60.5 -->61.1 -->59.6kg K=3.5 Mg=2.0 Plan: Check AM labs Given IV Bumex 2mg this AM (3) Hypothyroidism: Plan: Continue levothyroxine Admission and Anticipated Discharge Date Admission Date: November 21, 2023 Supervising Physician Co-Signing Physician Notes Attending Physician Supervision Note: I independently interviewed and examined the patient and verified the garrett history and physical, reviewed labs and image studies and agree with findings and care plan noted above. 73y/o here with SOB and hypoxia requiring 2 L nasal cannula oxygen and COVID- positive x 24 hours. Per nursing - has been urinating a lot after bumex dose. vitals noted nad heent nc at mmm breathing unlabored no accessory muscles good effort skin no rashes no pallor or icterus neuro no focal deficits. Lungs CTA, +JVD Acute on chronic HFmrEF with diastolic dysfunction - On lasix 20mgs 3 times a wk. -No accurate I and O to assess. Weight dropped since adding bumex yesterday. -continue IV 2mgs bumex. follow bmp -Already on beta Cecile. consider adding ARB and dapagliflozin on discharge. Troponin elevation - Likely Demand ischemia COVID - outbreak at her [facility]. No pnemonia findings on xray. Continue Dexamethasone. finished remdesivir. Procalcitonin level normal. Hypoxia - resolved. PT/OT eval - to return back to [facility]. Subjective Pt was lying in her bed sats 92-93% pt on 2L NC. Not in any respiratory distress. Review of Systems Review of Systems: Constitutional: denies fever, chills. HEENT: denies congestion, sore throat Cardio: denies chest pain, palpitations Resp: denies shortness of breath, cough GI: denies abdominal pain, nausea, vomiting, constipation, diarrhea : denies pain with urination, change in urinary frequency Neuro: denies new numbness, tingling, weakness Physical Exam Physical Exam: General: In no acute distress. HEENT: Normocephalic, atraumatic. Chest/Pulm: No respiratory distress, crackles Lt=Rt, reduced sounds at the bases.. 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 Results & Data Results & Data Vital Signs (Past 12 Hours) Vital Signs Temp Pulse Pulse Resp BP Pulse Ox O2 Del Method 11/26/23 07:24 Nasal Cannula 11/26/23 00:07 36.5 C 64 18 108/68 97 Nasal Cannula 11/25/23 21:44 61 11/25/23 20:00 Room Air O2 Flow Rate 11/26/23 07:24 2 11/26/23 00:07 2 11/25/23 21:44 11/25/23 20:00 2 (2) CHF (congestive heart failure) Heart failure chronicity: acute on chronic Heart failure type: combined systolic and diastolic Qualified Code(s): I50.43 - Acute on chronic combined systolic (congestive) and diastolic (congestive) heart failure (3) Hypothyroidism Hypothyroidism type: unspecified Qualified Code(s): E03.9 - Hypothyroidism, unspecified
[2023-11-26] MEDS: BUMETANIDE 2 MG in SYRINGE 0 ML IV ONE (08:32)
--- NOTE | 2023-11-26 08:43 | XRay Report ---
XR chest 1V portable CLINICAL HISTORY: Congestive heart failure. COMPARISON STUDY: Chest radiograph November 25, 2023. FINDINGS: Cardiomegaly is again noted. There is no pneumothorax. Small bilateral pleural effusions ar e unchanged. Interstitial thickening persists. There is patchy right midlung opacity. IMPRESSION: 1. Cardiomegaly with persistent pulmonary edema and small bilateral pleural effusions. 2. Patchy right midlung opacity which likely reflects alveolar pulmonary edema. A superimposed infect ious process would be difficult to exclude. ACT 112: Negative or not required by law. Electronically signed by: Ozzie Masters M.D. 11/26/2023 8:41 AM
[2023-11-26] MEDS ORDERED: REMDESIVIR 200 MG in SODIUM CHLORIDE 0.9% 210 ML IV ONE (12:00)
[2023-11-27 07:47] VITALS: RESP 16
[2023-11-27 08:52] LABS: Eosinophils # (auto) 0.06 K/uL (0.00-0.50); Eosinophils % (auto) 0.8 %; Hematocrit (blood only) 34.7 % (37.0-47.0); Hemoglobin 11.5 g/dl (12.0-16.0); Immature Granulocytes # (auto) 0.12 K/uL (0.01-0.20); Immature Granulocytes % (auto) 1.5 %; Lymphocytes # (auto) 1.37 K/uL (1.20-3.40); Lymphocytes % (auto) 17.7 %; Mean Corpuscular Hemoglobin 30.3 pg (25.0-34.0); Mean Corpuscular Hgb Conc 33.1 g/dL (32.0-36.0); Mean Corpuscular Volume 91.6 fL (80.0-100.0); Mean Platelet Volume 10.5 fL (9.4-12.4); Monocytes # (auto) 0.72 K/uL (0.11-0.59); Monocytes % (auto) 9.3 %; Neutrophils # (auto) 5.49 K/uL (1.40-6.50); Neutrophils % (auto) 70.7 %; Platelet Count 142 K/uL (130-400); RDW Coefficient of Variation 13.2 % (11.5-14.5); RDW Standard Deviation 44.8 fL (36.4-46.3); Red Blood Count 3.79 M/uL (4.20-5.40); White Blood Count 7.76 K/ul (4.8-10.8)
[2023-11-27 09:11] LABS: BUN Creatinine Ratio 28.4 (10-20); Calcium 8.5 mg/dl (8.6-10.3); Creatinine Clr Calc Pharmacy 47.6 ml/min; Est GFR (African American) 93.8 ml/min; Est GFR (Non-African American) 80.9 ml/min; Potassium 3.6 mmol/L (3.5-5.1)
[2023-11-27 11:16] VITALS: PULSE 54; TEMP 98.4; O2SAT 96
[2023-11-27 13:59] VITALS: BP 114/64
--- NOTE | 2023-11-27 17:50 | Discharge Summary ---
Date of Service November 27, 2023 Admission HPI Per Admitting Provider Ely is a 73-year-old female with a past medical history significant for Down syndrome, coronary artery disease, heart failure with preserved action fraction, grade 1 diastolic dysfunction, hypothyroidism, acute blood loss anemia due to gastric ulcer bleed who presented to [facility] ED on 11/21/2023 via EMS from her assisted ([facility]) due to increased generalized weakness and fever after recently testing positive with home COVID-19 test. On arrival to the ED she was noted to be hypoxic on room air with SpO2 in the mid to high 80s but was otherwise stable. Labs were significant for hemoglobin of 10.7 (down from 12 as of 07/07/2023), potassium of 3.4, initial high-sensitivity troponin of 22, BNP of 627, with full respiratory [employer] in process. Chest x- ray was read as cardiomegaly with interval progression of the mild interstitial pulmonary edema and a trace left pleural effusion. ECG shows normal sinus rhythm without acute ST segment or T wave changes. The patient was placed on 2 L nasal cannula and remained stable. Prior to admission she was given 40 mg IV Lasix. Patient was sleeping comfortably in bed at time of the exam currently stable on 2 L nasal cannula, history was not obtained from the patient due to combination of her baseline mental status and increased weakness due to acute COVID 19 infection. History was obtained from nursing general handling supervisor from the [facility] who was present at bedside. She states that the patient be much more tired/weak than her baseline and had a low-grade fever the evening of 11/20/2023. Due to this they tested her with a home COVID test which came back positive. This a.m. when the nursing general handling supervisor grain picker the patient was still very weak with an SpO2 in the high 80s which is why EMS was called. Nursing general handling supervisor confirms that the patient does not use oxygen or at bedtime CPAP at home. When asked, nursing general handling supervisor explains that the patient had some of her a.m. medications but was pocketing some pills/tablets this morning so she is unsure which she actually had. Normally has no issues eating or drinking but may be high risk for aspiration at this time due to her weakness. Her nursing general handling supervisor believes that the patient is a DNR/DNI but will confirm with us in the near future. They confirmed that the patient's sister, Swathi Anaya ([phone]) is a patient's primary decision-maker. I was able to call and speak with the patient's sister who confirmed that the patient is a DNR/DNI. We also discussed the option to start patient on remdesivir as her renal/liver function are within normal limits and patient is high risk for decompensation with a history of heart failure. After further discussion the patient's family would like to proceed with remdesivir treatment along with dexamethasone. Please refer to Dr. Sousa's attestation for any changes to treatment plan Discharge Data Allergies Allergy/AdvReac Type Severity Reaction Status Date / Time No Known Allergies Allergy Verified 04/26/22 09:53 Consultations 11/21/23 13:37 ED Decision to Admit Stat Total Time Total Time Spent Total Time Spent (In Minutes): <30 Discharge Plan Discharge Items Patient Disposition: Personal Intermediate Reason For Visit: COVID 19 INFECTION, HYPOXIA, VOLUME OVERLOAD, HYPO Discharge Diagnosis: COVID Infection, CHF Condition on Discharge: Good Activity: Per Instructions section Non-emergency contact: Primary Care Provider Call non-emergency contact if: your symptoms worsen and your temperature is above 101.5 Follow-up/Referrals: Lulu Harper MD [Primary Care Provider] - Diet: Heart Healthy Ambulatory Orders: Basic Metabolic Panel (Routine) Timeframe: 1 Week Location: Determined by Patient Ordered By: Cat Cotter Attending Provider Instructions: You were admitted for COVID infection and also you were found to have fluid build up in your lungs both of these made you feel short of breath when you were admitted. (1) COVID-infection (resolved) You have completed the full course of antiviral treatment with Remdesivir for COVID infection. Your covid infection is resolved. (2) You were also found to have fluid build up on your lungs due to possible ineffective pumping of your heart called congestive heart failure (CHF) this is possibly due to increased demand on heart from coivd infection. We have treated you with water pills in IV form to drain the froid out of your lungs. Today your lungs sound better and you didn't need any oxygen support. -You were on water a pill call Lasix at 20mg three times a week while you were at [facility]. However we want you to take it daily and advise you to check your electrolytes by your PCP weekly in the next 2 weeks and get a review. And also would recommend for fluid restriction with a maximum intake of 2 liter of fluids overall intake in 24 hours. Please continue the rest of your regular medications as usual. We will send a detailed summary on your admission and hospital course to your PCP. Advised to follow up with your PCP with in a week. Pending Studies at Discharge: No Stand-Alone Forms: My [employer], Smoking Cessation Skilled Items Patient informed of condition?: Yes DNR: Yes Discharge Level of Care: Other Communicable Disease: No Discharge Prognosis: Stable Lines: None Urinary Catheter: No Medications and DC Order Prescriptions: New timolol maleate 0.5 % Drops 1 drp OPR BID Qty: 15 1RF Continued Premarin 0.625 mg/gram cream 0.625 mg vaginal 2XWK Qty: 30 0RF Rx Instructions: USES ON TUESDAYS & THURSDAYS. mirabegron [Myrbetriq] 50 mg tablet extended release 24 hr 50 mg PO DAILY Qty: 90 2RF Rx Instructions: Take one tablet daily. pravastatin 20 mg tablet 20 mg PO DAILY docusate sodium [Colace] 100 mg capsule 200 mg PO HS nitrofurantoin monohyd/m-cryst [Macrobid] 100 mg capsule 100 mg PO Q12H 5 Days Qty: 10 0RF Rx Instructions: must administer with a meal/food levothyroxine 75 mcg tablet 75 mcg PO QAM metoprolol succinate 25 mg tablet extended release 24 hr 12.5 mg PO DAILY cholecalciferol (vitamin D3) [Vitamin D3] 25 mcg (1,000 unit) Tablet 1,000 unit PO QAM sennosides [senna] 8.6 mg Tablet 8.6 mg PO HS Rx Instructions: HOLD FOR LOOSE STOOLS melatonin 5 mg Tablet, Sublingual 5 mg SUBLINGUAL HS alendronate [Fosamax] 70 mg Tablet 70 mg PO WK Rx Instructions: TAKES ON TUESDAYS. cyanocobalamin (vitamin B-12) [Vitamin B-12] 250 mcg Tablet 250 mcg PO QAM escitalopram oxalate 20 mg tablet 20 mg PO DAILY L.acidoph,saliva-B.bif-S.therm [Acidophilus Probiotic Blend] 175 mg Capsule 1 cap PO DAILY acetaminophen 325 mg Tablet 325 mg PO QID PRN (Reason: Pain) fluconazole 150 mg Tablet 150 mg PO Q3D PRN (Reason: Other) omega 5-mjo-imp-fish oil [Fish Oil] 1,000 mg (120 mg-180 mg) Capsule 1 cap PO DAILY pantoprazole 40 mg tablet,delayed release (DR/EC) 40 mg PO DAILY magnesium hydroxide [Milk of Magnesia] 400 mg/5 mL Suspension 30 ml PO DIRECTED PRN (Reason: Constipation) bisacodyl 10 mg Suppository 10 mg WA DAILY PRN (Reason: Constipation) hydrocortisone 0.25 % Cream 1 applic topical DIRECTED fludrocortisone 0.1 mg tablet 0.1 mg PO DAILY furosemide 20 mg Tablet 20 mg PO DAILY PRN (Reason: Weight Gain) 30 Days Qty: 30 1RF Patient Comments: swelling or weight gain of 2 lbs Discontinued furosemide [Lasix] 20 mg tablet 20 mg PO 3XWK Rx Instructions: TAKES MON, WED, & FRI. Discharge Orders: Discharge Order (Routine); Ordered 11/27/23 Ordered By: Jairo Mike Admission Data Admit Date/Time: 11/21/23 13:43 Attending Provider: Markus Pastor Admit Provider: Rhys Sousa Primary Care Provider: Lulu Harper Other Providers: Rhys Sousa Other Interventions: Discharge Summary Assessment (RN) Last Done: 11/27/23 13:58 Supervising Physician Co-Signing Physician Notes I personally examined the patient and verified all garrett points of history and exam, discussed case, and agree with decision making with Dr Jeanne Mike feeling better and would like to go home. Vitals noted, in general she is awake and alert pleasant no distress. HEENT normocephalic atraumatic mucous membranes moist. Breathing unlabored no accessory muscle use good effort. Skin without rashes pallor or icterus. Neuro without focal deficits. COVID-19 with hypoxic respiratory failureimproved. Safe/stable for home. No further treatment needed. Off oxygen. Otherwise as above
--- NOTE | 2023-11-27 17:50 | Discharge Summary ---
Date of Service November 27, 2023 Admission HPI Per Admitting Provider Ely is a 73-year-old female with a past medical history significant for Down syndrome, coronary artery disease, heart failure with preserved action fraction, grade 1 diastolic dysfunction, hypothyroidism, acute blood loss anemia due to gastric ulcer bleed who presented to [facility] ED on 11/21/2023 via EMS from her long-term ([facility]) due to increased generalized weakness and fever after recently testing positive with home COVID-19 test. On arrival to the ED she was noted to be hypoxic on room air with SpO2 in the mid to high 80s but was otherwise stable. Labs were significant for hemoglobin of 10.7 (down from 12 as of 07/07/2023), potassium of 3.4, initial high-sensitivity troponin of 22, BNP of 627, with full respiratory [employer] in process. Chest x- ray was read as cardiomegaly with interval progression of the mild interstitial pulmonary edema and a trace left pleural effusion. ECG shows normal sinus rhythm without acute ST segment or T wave changes. The patient was placed on 2 L nasal cannula and remained stable. Prior to admission she was given 40 mg IV Lasix. Patient was sleeping comfortably in bed at time of the exam currently stable on 2 L nasal cannula, history was not obtained from the patient due to combination of her baseline mental status and increased weakness due to acute COVID 19 infection. History was obtained from nursing travel information center supervisor from the [facility] who was present at bedside. She states that the patient be much more tired/weak than her baseline and had a low-grade fever the evening of 11/20/2023. Due to this they tested her with a home COVID test which came back positive. This a.m. when the nursing travel information center supervisor branch specialist the patient was still very weak with an SpO2 in the high 80s which is why EMS was called. Nursing travel information center supervisor confirms that the patient does not use oxygen or at bedtime CPAP at home. When asked, nursing travel information center supervisor explains that the patient had some of her a.m. medications but was pocketing some pills/tablets this morning so she is unsure which she actually had. Normally has no issues eating or drinking but may be high risk for aspiration at this time due to her weakness. Her nursing travel information center supervisor believes that the patient is a DNR/DNI but will confirm with us in the near future. They confirmed that the patient's sister, Swathi Anaya ([phone]) is a patient's primary decision-maker. I was able to call and speak with the patient's sister who confirmed that the patient is a DNR/DNI. We also discussed the option to start patient on remdesivir as her renal/liver function are within normal limits and patient is high risk for decompensation with a history of heart failure. After further discussion the patient's family would like to proceed with remdesivir treatment along with dexamethasone. Please refer to Dr. Sousa's attestation for any changes to treatment plan Admission Exam Per Admitting Provider Physical Exam: General: In no acute distress, stated age, fatigued and ill-appearing but nontoxic HEENT: Normocephalic, atraumatic, no scleral icterus, right eye currently mildly swollen and erythematous due to known conjunctivitis which is being treated and followed outpatient by ophthalmology, bilateral pupils are round, symmetrical, and reactive to light, dry mucus membranes, trachea midline, no thyromegaly Chest/Pulm: No respiratory distress, symmetrical chest expansion, crackles noted in the bilateral lower mid lung julio with scattered expiratory wheezing Cardiac: RRR, no murmurs noted Abdomen: Negative for ascites and bruising, normoactive bowel sounds, soft, non- tender to palpation throughout Musculoskeletal: Symmetrical and without signs of acute trauma, 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 HEENT: Normocephalic, atraumatic. Chest/Pulm: No respiratory distress, crackles Lt=Rt, reduced sounds at the bases.. 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 Discharge Data Allergies Allergy/AdvReac Type Severity Reaction Status Date / Time No Known Allergies Allergy Verified 04/26/22 09:53 Consultations 11/21/23 13:37 ED Decision to Admit Stat Hospital Course (1) COVID-19: Pt received full 5 days course of Remdesivir. Pts Sob symptoms resolved. (2) CHF (congestive heart failure): pulmonary congestion on admission. Echo (11/21) LVEF 45-50% treated with diuretics. pulmonary congestion resolved. consider continuing Lasix 20mg daily and fluid restriction - max allowed 2L per day and check electrolytes. Consider a routine referral to cardiology HF clinic. (3) Hypothyroidism: Continue levothyroxine Total Time Total Time Spent Total Time Spent (In Minutes): as per attending entry Discharge Plan Discharge Items Patient Disposition: Personal Alf Reason For Visit: COVID 19 INFECTION, HYPOXIA, VOLUME OVERLOAD, HYPO Discharge Diagnosis: COVID Infection, CHF Condition on Discharge: Good Activity: Per Instructions section Non-emergency contact: Primary Care Provider Call non-emergency contact if: your symptoms worsen and your temperature is above 101.5 Follow-up/Referrals: Lulu Harper MD [Primary Care Provider] - Diet: Heart Healthy Ambulatory Orders: Basic Metabolic Panel (Routine) Timeframe: 1 Week Location: Determined by Patient Ordered By: Cat Berry Addtl Attending Provider Instructions: You were admitted for COVID infection and also you were found to have fluid build up in your lungs both of these made you feel short of breath when you were admitted. (1) COVID-infection (resolved) You have completed the full course of antiviral treatment with Remdesivir for COVID infection. Your covid infection is resolved. (2) You were also found to have fluid build up on your lungs due to possible ineffective pumping of your heart called congestive heart failure (CHF) this is possibly due to increased demand on heart from coivd infection. We have treated you with water pills in IV form to drain the froid out of your lungs. Today your lungs sound better and you didn't need any oxygen support. -You were on water a pill call Lasix at 20mg three times a week while you were at [facility]. However we want you to take it daily and advise you to check your electrolytes by your PCP weekly in the next 2 weeks and get a review. And also would recommend for fluid restriction with a maximum intake of 2 liter of fluids overall intake in 24 hours. Please continue the rest of your regular medications as usual. We will send a detailed summary on your admission and hospital course to your PCP. Advised to follow up with your PCP with in a week. Pending Studies at Discharge: No Stand-Alone Forms: My [employer], Smoking Cessation Skilled Items Patient informed of condition?: Yes DNR: Yes Discharge Level of Care: Other Communicable Disease: No Discharge Prognosis: Stable Lines: None Urinary Catheter: No Medications and DC Order Prescriptions: New timolol maleate 0.5 % Drops 1 drp OPR BID Qty: 15 1RF Continued Premarin 0.625 mg/gram cream 0.625 mg vaginal 2XWK Qty: 30 0RF Rx Instructions: USES ON TUESDAYS & THURSDAYS. mirabegron [Myrbetriq] 50 mg tablet extended release 24 hr 50 mg PO DAILY Qty: 90 2RF Rx Instructions: Take one tablet daily. pravastatin 20 mg tablet 20 mg PO DAILY docusate sodium [Colace] 100 mg capsule 200 mg PO HS nitrofurantoin monohyd/m-cryst [Macrobid] 100 mg capsule 100 mg PO Q12H 5 Days Qty: 10 0RF Rx Instructions: must administer with a meal/food levothyroxine 75 mcg tablet 75 mcg PO QAM metoprolol succinate 25 mg tablet extended release 24 hr 12.5 mg PO DAILY cholecalciferol (vitamin D3) [Vitamin D3] 25 mcg (1,000 unit) Tablet 1,000 unit PO QAM sennosides [senna] 8.6 mg Tablet 8.6 mg PO HS Rx Instructions: HOLD FOR LOOSE STOOLS melatonin 5 mg Tablet, Sublingual 5 mg SUBLINGUAL HS alendronate [Fosamax] 70 mg Tablet 70 mg PO WK Rx Instructions: TAKES ON TUESDAYS. cyanocobalamin (vitamin B-12) [Vitamin B-12] 250 mcg Tablet 250 mcg PO QAM escitalopram oxalate 20 mg tablet 20 mg PO DAILY L.acidoph,saliva-B.bif-S.therm [Acidophilus Probiotic Blend] 175 mg Capsule 1 cap PO DAILY acetaminophen 325 mg Tablet 325 mg PO QID PRN (Reason: Pain) fluconazole 150 mg Tablet 150 mg PO Q3D PRN (Reason: Other) omega 5-upo-nil-fish oil [Fish Oil] 1,000 mg (120 mg-180 mg) Capsule 1 cap PO DAILY pantoprazole 40 mg tablet,delayed release (DR/EC) 40 mg PO DAILY magnesium hydroxide [Milk of Magnesia] 400 mg/5 mL Suspension 30 ml PO DIRECTED PRN (Reason: Constipation) bisacodyl 10 mg Suppository 10 mg LA DAILY PRN (Reason: Constipation) hydrocortisone 0.25 % Cream 1 applic topical DIRECTED fludrocortisone 0.1 mg tablet 0.1 mg PO DAILY furosemide 20 mg Tablet 20 mg PO DAILY PRN (Reason: Weight Gain) 30 Days Qty: 30 1RF Patient Comments: swelling or weight gain of 2 lbs Discontinued furosemide [Lasix] 20 mg tablet 20 mg PO 3XWK Rx Instructions: TAKES MON, WED, & FRI. Discharge Orders: Discharge Order (Routine); Ordered 11/27/23 Ordered By: Jairo Mike Admission Data Admit Date/Time: 11/21/23 13:43 Attending Provider: Markus Pastor Admit Provider: Rhys Sousa Primary Care Provider: Lulu Harper Other Providers: Rhys Sousa Other Interventions: Discharge Summary Assessment (RN) Last Done: 11/27/23 13:58
--- NOTE | 2023-11-27 17:52 | Billing Data ---
Date of Service November 27, 2023 Coding Level of Care Code 07284 IN/OBS DISCH 30 MIN/LESS
--- NOTE | 2023-11-28 06:19 | Electrocardiogram Report ---
Test Reason : Blood Pressure : */* mmHG Vent. Rate : 55 BPM Atrial Rate : 55 BPM P-R Int : 146 ms QRS Dur : 122 ms QT Int : 502 ms P-R-T Axes : 54 -46 58 degrees QTcB Int : 480 ms Sinus bradycardia Left axis deviation Inferior infarct (cited on or before 21-Nov-2023) Anterolateral infarct (cited on or before 19-Mar-2019) Non-specific intra-ventricular conduction block Abnormal ECG When compared with ECG of 24-Nov-2023 16:05, Premature ventricular complexes are no longer Present Confirmed by Guerrero Milton ([id number]) on 11/28/2023 6:19:39 AM Referred By: REFERRED SELF Confirmed By: Guerrero Milton
== END 2023-11-27 16:17 | disposition home or self-care (01) | DRG 177 ==
LOC: ED 11:41 → SUATTDRO 13:43 → 2N 13:43

== ENCOUNTER 2024-09-05 11:10 | Observation (INO) ==
--- NOTE | 2024-09-05 11:28 | Emergency Department Note ---
Impression & Plan Syncope, Anemia ED Provider Note NAME: AURELIO MCKENZIE AGE: 74 SEX: F : 1950 ARRIVES VIA: Ambulance INFORMANT: Patient ED PROVIDER(S): Markus Buitrago DO CHIEF COMPLAINT: Syncope HPI: Patient is a 74-year-old female with a past medical history of CHF, hypoxia, elevated troponin, diverticulitis, Down syndrome, CAD and heart failure who presents to the ER as she was in her room. Caretakers heard a thud and then they tried to get into the room but she was behind the door. Per EMS she was passed out per the floor coverings salesperson. Patient provides additional history and notes that she passed out. She denies any headache or change in vision preceding or following the incident. No chest pain or shortness of breath preceding or following incident. No belly pain, nausea, vomiting or diarrhea. No dysuria, urgency or frequency. She denies any pain from the fall. ADDITIONAL HISTORY OBTAINED: Additional history per EMS as described above Chronic Medical/Social Conditions Affecting Care: Per HPI PAST MEDICAL HISTORY:See Below PAST SURGICAL HISTORY:See Below FAMILY HISTORY:See Below SOCIAL HISTORY:See Below HOME MEDICATIONS:See Below ALLERGIES:See Below VITALS:See Below PHYSICAL EXAMINATION: GENERAL: alert, well appearing, well nourished, no distress, non-toxic HEAD: normal cephalic, atraumatic EYE EXAM: normal conjunctiva, PERRL and EOM's grossly intact OROPHARYNX: no exudate, no erythema, lips, buccal mucosa, and tongue normal and mucous membranes are moist NECK: supple, no nuchal rigidity, no adenopathy, non-tender CHEST: stable to compression anteriorly and posteriorly LUNGS: clear to auscultation. Normal chest wall mechanics HEART: no murmurs, S1 normal and S2 normal ABDOMEN: abdomen soft, non-tender, normo-active bowel sounds, no masses, no rebound or guarding. PELVIS: stable to compression anteriorly and posteriorly BACK: Back is symmetrical on inspection and there is no deformity, no midline tenderness, no CVA tenderness. UPPER EXTREMITIES: full active and passive range of motion of all joints without tenderness to palpation LOWER EXTREMITIES: full active and passive range of motion of all joints without tenderness to palpation NEURO EXAM: Normal sensorium, cranial nerves II-XII grossly intact, normal speech, no gross weakness of arms, no gross weakness of legs. GCS: 15. MEDICAL DECISION MAKING: Patient is a 74-year-old female who presents ER for the above-stated complaint. IV was established and blood work was obtained. Labs showed no significant leukocytosis and a mild anemia at 11,000. BMP with LFTs bilirubin and troponin was negative. Lipase normal. Chest x-ray with some likely atelectasis in the bases. Patient has no upper respiratory symptoms. Do not feel this consistent with pneumonia. CT head was negative. With her age and risk factors which include heart failure, and CAD and the syncopal event did elect discussed with hospitalist for further evaluation management treatment. Spoke with Bianka from [facility] who noted Dr. Rossi will be doing the admission. Consults/Care Managements Discussions: Per [facility] Triage Nursing notes reviewed. Limited review of prior medical records performed Vital Signs: reviewed and remarkable for no significant abnormalities Differential diagnosis: Cardiac ischemia, aortic dissection, pulmonary embolism, pneumothorax, pneumonia, pericarditis, myocarditis, esophageal rupture, GERD, cholecystitis, pancreatitis, musculoskeletal, as well as other pathologies. ER treatment provided: See below Diagnostics interpreted by me include EKG and cardiac monitoring as listed below: -Cardiac Monitoring: An order was placed for continuous cardiac monitoring. The monitor shows a rate of 70 with sinus rhythm. -ECG: Sinus rhythm rate of 70 Left axis Left bundle branch block QTc 522 -Laboratory studies:Interpreted by me as stated above in MDM and shown below. Imaging studies: Xrays: As interpreted by me: Portable AP upright 1 view of the chest shows atelectasis at the bases CTs show: CT head was negative per radiology Procedures:none Critical Care: None Past Med/Surg History Problem List (Updated 09/05/24 @ 14:28 by Markus Buitrago DO) Anemia (Acute) Syncope (Acute) Somnolence (Acute) CHF (congestive heart failure) (Acute) Anemia (Acute) Hypoxia (Acute) Elevated troponin Hypokalemia COVID-19 Hypoxia Generalized weakness Incomplete bladder emptying Urinary frequency Gastric ulcer Change in mental status (Acute) Diverticulitis (Acute) Fever (Acute 04/09/13) Fever (Acute) Hypoxemia (Acute) Influenza A (Acute) Pneumonia (Acute) Pneumonia (Acute) Influenza B (Acute) Acute respiratory failure with hypoxia Left lower lobe pneumonia Hypothyroidism Leukopenia Thrombocytopenia Discharge planning issues Microscopic hematuria Urinary incontinence Dysuria Vaginal atrophy Upper gastrointestinal hemorrhage (Acute) Anemia (Acute) Down syndrome (Acute) CAD (coronary artery disease) Pneumonia (Acute) Leukocytosis (Acute) Acute diverticulitis (Acute) Heart disease (Chronic) Medical History History of seizure grand mal > last episode per staff at senior living Hearing loss in left ear Seasonal allergies Mild intellectual disability Hypothyroidism OCD (obsessive compulsive disorder) Gastric ulcer with hemorrhage Acute blood loss anemia GI bleed Fall Mitral regurgitation Ischemic cardiomyopathy Chronic constipation Surgical History H/O: hysterectomy per pts sister History of repair of hiatal hernia Hx of cataract extraction bilat Family History Other No pertinent family history in first degree relatives Social History Smoking Status: Never smoker Second Hand Exposure: No; Do You Dip or Chew Tobacco: No; Hx Alcohol Use: No Hx Substance Use: No Preferred Language: Tunisian Communication Ability: Effective Byproduct Engineer Required: No Beliefs That Will Affect Care: None marital status: Single Current Living Situation: Personal Care Facility Current Living Situation Comment: [facility], [facility] Home Feels Safe at Home: Yes Assistive Devices: Walker Allergies Allergies Allergy/AdvReac Type Severity Reaction Status Date / Time No Known Allergies Allergy Verified 01/01/24 15:10 Home Meds Home Medications Medication Instructions Recorded Confirmed cholecalciferol (vitamin D3) 25 1,000 unit PO QAM 03/19/19 09/05/24 mcg (1,000 unit) tablet (Vitamin D3) levothyroxine 75 mcg tablet 0 mcg PO QAM 03/19/19 09/05/24 docusate sodium 100 mg capsule 200 mg PO HS 10/01/20 09/05/24 (Colace) pravastatin 20 mg tablet 0 mg PO DAILY 10/01/20 09/05/24 L.acidophil,salivari-Bifido 1 cap PO DAILY 08/19/21 09/05/24 bifidum-Strep thermoph 175 mg capsule (Acidophilus Probiotic Blend) alendronate 70 mg tablet (Fosamax) 70 mg PO WK 08/19/21 09/05/24 cyanocobalamin (vitamin B-12) 250 250 mcg PO QAM 08/19/21 09/05/24 mcg tablet (Vitamin B-12) escitalopram oxalate 20 mg tablet 20 mg PO DAILY 08/19/21 09/05/24 melatonin 5 mg sublingual tablet 0 mg sublingual HS 08/19/21 09/05/24 sennosides 8.6 mg tablet (senna) 0 mg PO HS 08/19/21 09/05/24 acetaminophen 325 mg tablet 650 mg PO Q4H PRN Headache 10/18/21 09/05/24 bisacodyl 10 mg rectal suppository [address] DAILY PRN Constipation 10/18/21 09/05/24 hydrocortisone 0.25 % topical cream 0 applic topical DIRECTED 10/18/21 09/05/24 omega 4-hkh-csv-fish oil 1,000 mg 0 cap PO DAILY 10/18/21 09/05/24 (120 mg-180 mg) capsule (Fish Oil) pantoprazole 40 mg tablet,delayed 40 mg PO DAILY 10/18/21 09/05/24 release fludrocortisone 0.1 mg tablet 0 mg PO DAILY hypotension 11/21/23 09/05/24 acetaminophen 500 mg tablet 500 mg PO Q6H PRN arthritis 09/05/24 09/05/24 albuterol sulfate 2.5 mg/3 mL 2.5 mg inhalation Q6H PRN Wheezing 09/05/24 09/05/24 (0.083 %) solution for nebulization aloe vera 1 applic topical DAILY PRN sunburn 09/05/24 09/05/24 aluminum-mag hydroxide-simethicone 30 ml PO UD PRN Indigestion 09/05/24 09/05/24 200 mg-200 mg-20 mg/5 mL oral susp furosemide 20 mg tablet 0 mg PO DAILY PRN Weight Gain 09/05/24 09/05/24 olopatadine 0.2 % eye drops 1 drp ophthalmic (eye) DAILY 09/05/24 09/05/24 polyethylene glycol 3350 17 17 g PO DAILY PRN Constipation 09/05/24 09/05/24 gram/dose oral powder (Miralax) potassium chloride 10 mEq 10 meq PO BID 09/05/24 09/05/24 tablet,extended release(part/cryst) zinc oxide-cod liver oil 40 % 1 applic topical DAILY PRN Diaper 09/05/24 09/05/24 topical paste (Desitin) Rash Previous Rx's Medication Instructions Recorded mirabegron 50 mg tablet,extended 50 mg PO DAILY #90 tabs 08/23/23 release 24 hr (Myrbetriq) Results & Data (ED) Vital Signs Vital Signs - 24 hr 09/05/24 11:13 09/05/24 11:35 09/05/24 11:57 Temperature 36.6 C Temperature Source Oral Pulse Rate 69 74 68 Pulse Rate [Finger] Pulse Rate from SpO2 Sensor Pulse Rhythm Regular Respiratory Rate 12 20 Respiratory Effort / Characteristics Non-Labored Spontaneous Respiratory Depth Normal Respiratory Pattern Regular Blood Pressure 132/75 Blood Pressure [Right Arm] Blood Pressure Mean 94 Blood Pressure Mean [Right Arm] Blood Pressure Position [Right Arm] Pulse Oximetry 93 95 Oxygen Delivery Method Room Air Room Air Sepsis Recent Fever Within 48 Hours No Sepsis New/Unexplained Change in Mental Status No Sepsis Action Taken by Nursing No Action Required 09/05/24 11:57 09/05/24 12:56 09/05/24 13:00 Temperature Temperature Source Pulse Rate 74 Pulse Rate [Finger] 67 73 Pulse Rate from SpO2 Sensor 73 Pulse Rhythm Respiratory Rate 20 20 21 Respiratory Effort / Characteristics Spontaneous Non-Labored Respiratory Depth Normal Normal Respiratory Pattern Blood Pressure 126/63 Blood Pressure [Right Arm] 132/75 128/63 Blood Pressure Mean 100 Blood Pressure Mean [Right Arm] 94 84 Blood Pressure Position [Right Arm] Sitting Pulse Oximetry 94 96 93 Oxygen Delivery Method Room Air Room Air Room Air Sepsis Recent Fever Within 48 Hours Sepsis New/Unexplained Change in Mental Status Sepsis Action Taken by Nursing Laboratory Data 09/05/24 11:31 09/05/24 11:31 Lab Results 09/05/24 Range/Units 11:31 WBC 5.31 (4.8-10.8) K/ul RBC 3.61 L (4.20-5.40) M/uL Hgb 11.1 L (12.0-16.0) g/dl Hct 34.9 L (37.0-47.0) % MCV 96.7 (80.0-100.0) fL MCH 30.7 (25.0-34.0) pg MCHC 31.8 L (32.0-36.0) g/dL RDW Std Deviation 50.4 H (36.4-46.3) fL RDW Coeff of Glenn 14.3 (11.5-14.5) % Plt Count 145 (130-400) K/uL MPV 9.0 L (9.4-12.4) fL Immature Gran % (Auto) 0.6 % Neut % (Auto) 68.3 % Lymph % (Auto) 16.0 % Snyder % (Auto) 11.7 % Eos % (Auto) 2.8 % Baso % (Auto) 0.6 % Neut # (Auto) 3.63 (1.40-6.50) K/uL Lymph # (Auto) 0.85 L (1.20-3.40) K/uL Snyder # (Auto) 0.62 H (0.11-0.59) K/uL Eos # (Auto) 0.15 (0.00-0.50) K/uL Baso # (Auto) 0.03 (0.00-0.20) K/uL Immature Gran # (Auto) 0.03 (0.01-0.20) K/uL Sodium 141 (136-145) mmol/L Potassium 4.4 (3.5-5.1) mmol/L Chloride 103 (98-107) mmol/L Carbon Dioxide 34 H (21-32) mmol/L Anion Gap 4 (3-11) BUN 19 (6-23) mg/dl Creatinine 0.79 (0.6-1.2) mg/dl Est Cr Clr Drug Dosing 47.6 ml/min eGFR 78.93 BUN/Creatinine Ratio 24.1 H (10-20) Glucose 90 (70-99(Fasting)) mg/dl Calcium 9.1 (8.6-10.3) mg/dl Total Bilirubin 0.6 (0.2-1.0) mg/dl AST 23 (13-39) U/L ALT 14 (7-52) U/L Alkaline Phosphatase 55 (34-104) U/L Troponin I High Sens 9.7 (0-14) pg/ml Total Protein 6.7 (6.0-8.3) gm/dl Albumin 4.3 (3.4-5.0) gm/dl Globulin 2.4 L (2.5-4.0) gm/dl Albumin/Globulin Ratio 1.8 (0.9-2) Lipase 9 L (11-82) U/L Imaging Data Radiologist's Impression: Chest X-Ray 09/05/24 11:25 XR chest 1V portable CLINICAL HISTORY: Chest pain, nonspecific COMPARISON STUDY: 08/01/2024 FINDINGS: There is stable cardiomegaly with pulmonary vascular congestion. There is patchy opacity at the lung bases. No pleural effusion or pneumothorax seen. IMPRESSION: 1. CHF. 2. Pneumonia versus atelectasis in the lung bases. ACT 112: Negative or not required by law. Electronically signed by: Олег Benavides M.D. 09/05/2024 12:[address] 09/05/24 11:25 CT SCAN OF THE BRAIN WITHOUT IV CONTRAST CLINICAL HISTORY: Syncope. COMPARISON STUDY: Head CT August 27, 2021. TECHNIQUE: Unenhanced axial CT scan of the brain was performed from the vertex to the skull base. A dose lowering technique was utilized adhering to the principles of ALARA. CT DOSE: 703.85 mGy.cm FINDINGS: Brain parenchyma: No acute intracranial hemorrhage, midline shift or mass effect is present. Jarquin-white matter differentiation is preserved. There are no extra- axial fluid collections. There are no findings to suggest acute dural sinus thrombosis or acute territorial infarct. White matter hypodensities have mildly progressed since CT of August 27, 2021. These favor small vessel disease. Ventricles, sulci, cisterns: There is no hydrocephalus. The basal cisterns are patent. Calvarium: There are no calvarial fractures. Sinuses and mastoids: The visualized paranasal sinuses are clear. The mastoid air cells are well pneumatized. Orbits: The bony orbits are grossly intact. IMPRESSION: 1. No acute intracranial findings. 2. No calvarial fractures. ACT 112: Negative or not required by law. Electronically signed by: Ozzie Masters M.D. 09/05/2024 12:32 PM Discharge Plan Visit Data Chief Complaint: Fall ED Provider: Markus Buitrago Discharge Problem: Syncope, Anemia Patient Disposition: Home - Self-Care Condition: Fair Forms Stand Alone Forms: [facility], Important Visit Information Prescriptions Prescriptions: No Action mirabegron [Myrbetriq] 50 mg tablet extended release 24 hr 50 mg PO DAILY Qty: 90 2RF Rx Instructions: Take one tablet daily. pravastatin 20 mg tablet 0 mg PO DAILY Patient Comments: 7- not on faxed med list unable to verify. docusate sodium [Colace] 100 mg capsule 200 mg PO HS levothyroxine 75 mcg tablet 0 mcg PO QAM Patient Comments: 7- not on faxed med list unable to verify. cholecalciferol (vitamin D3) [Vitamin D3] 25 mcg (1,000 unit) Tablet 1,000 unit PO QAM sennosides [senna] 8.6 mg Tablet 0 mg PO HS Patient Comments: 7- not on faxed med list unable to verify. Rx Instructions: HOLD FOR LOOSE STOOLS melatonin 5 mg Tablet, Sublingual 0 mg sublingual HS Patient Comments: 7- not on faxed med list unable to verify. alendronate [Fosamax] 70 mg Tablet 70 mg PO WK Rx Instructions: TAKES ON TUESDAYS. cyanocobalamin (vitamin B-12) [Vitamin B-12] 250 mcg Tablet 250 mcg PO QAM escitalopram oxalate 20 mg tablet 20 mg PO DAILY L.acidoph,saliva-B.bif-S.therm [Acidophilus Probiotic Blend] 175 mg Capsule 1 cap PO DAILY acetaminophen 325 mg Tablet 650 mg PO Q4H PRN (Reason: Headache) omega 3-oab-tbx-fish oil [Fish Oil] 1,000 mg (120 mg-180 mg) Capsule 0 cap PO DAILY Patient Comments: 7- not on faxed med list unable to verify. pantoprazole 40 mg tablet,delayed release (DR/EC) 40 mg PO DAILY bisacodyl 10 mg Suppository [address] DAILY PRN (Reason: Constipation) Patient Comments: 7- not on faxed med list unable to verify. hydrocortisone 0.25 % Cream 0 applic topical DIRECTED Patient Comments: 7- not on faxed med list unable to verify. albuterol sulfate 2.5 mg /3 mL (0.083 %) solution for nebulization 2.5 mg inhalation Q6H PRN (Reason: Wheezing) acetaminophen 500 mg Tablet 500 mg PO Q6H PRN (Reason: arthritis) alum-mag hydroxide-simeth [Mylanta] 200-200-20 mg/5 mL Suspension 30 ml PO UD MDD 12 teaspoons PRN (Reason: Indigestion) Rx Instructions: between meals and at bedtime polyethylene glycol 3350 [Miralax] 17 gram/dose Powder 17 g PO DAILY PRN (Reason: Constipation) aloe vera Gel 1 applic TOPICAL DAILY PRN (Reason: sunburn) potassium chloride 10 mEq tablet,ER particles/crystals 10 meq PO BID olopatadine 0.2 % Drops 1 drp OPHTHALMIC (EYE) DAILY Rx Instructions: Right eye Desitin 40 % Paste 1 applic TOPICAL DAILY PRN (Reason: Diaper Rash) furosemide 20 mg tablet 0 mg PO DAILY PRN (Reason: Weight Gain) Patient Comments: 09/05- not on faxed med list unable to verify. swelling or weight gain of 2 lbs fludrocortisone 0.1 mg tablet 0 mg PO DAILY Patient Comments: 09/05- not on faxed med list unable to verify. Referrals Referrals: Lulu Harper MD [Primary Care Provider] - Discharge Problem: Syncope Qualifiers: Syncope type: unspecified Qualified Code(s): R55 - Syncope and collapse Anemia Qualifiers: Anemia type: unspecified type Qualified Code(s): D64.9 - Anemia, unspecified
[2024-09-05 11:45] LABS: Hematocrit (blood only) 34.9 % (37.0-47.0); Hemoglobin 11.1 g/dl (12.0-16.0); Immature Granulocytes # (auto) 0.03 K/uL (0.01-0.20); Immature Granulocytes % (auto) 0.6 %; Mean Corpuscular Hemoglobin 30.7 pg (25.0-34.0); Mean Corpuscular Volume 96.7 fL (80.0-100.0); Platelet Count 145 K/uL (130-400); RDW Standard Deviation 50.4 fL (36.4-46.3); Red Blood Count 3.61 M/uL (4.20-5.40); White Blood Count 5.31 K/ul (4.8-10.8)
[2024-09-05 12:02] LABS: Alanine Aminotransferase 14.0 U/L (7-52); Albumin Globulin Ratio 1.8 (0.9-2); Alkaline Phosphatase 55.0 U/L (34-104); Anion Gap 4.0 (3-11); Bilirubin,Total 0.6 mg/dl (0.2-1.0); Blood Urea Nitrogen 19.0 mg/dl (6-23); Calcium 9.1 mg/dl (8.6-10.3); Carbon Dioxide 34.0 mmol/L (21-32); Chloride 103.0 mmol/L (98-107); Creatinine Clr Calc Pharmacy 47.6 ml/min; Globulin 2.4 gm/dl (2.5-4.0); Glucose 90.0 mg/dl (70-99(Fasting)); Lipase 9.0 U/L (11-82); Potassium 4.4 mmol/L (3.5-5.1); Sodium 141.0 mmol/L (136-145); Total Protein 6.7 gm/dl (6.0-8.3)
--- NOTE | 2024-09-05 12:05 | XRay Report ---
XR chest 1V portable CLINICAL HISTORY: Chest pain, nonspecific COMPARISON STUDY: 08/01/2024 FINDINGS: There is stable cardiomegaly with pulmonary vascular congestion. There is patchy opacity at the lung bases. No pleural effusion or pneumothorax seen. IMPRESSION: 1. CHF. 2. Pneumonia versus atelectasis in the lung bases. ACT 112: Negative or not required by law. Electronically signed by: Олег Benavides M.D. 09/05/2024 12:04 PM
--- NOTE | 2024-09-05 12:34 | CT Scan Report ---
CT SCAN OF THE BRAIN WITHOUT IV CONTRAST CLINICAL HISTORY: Syncope. COMPARISON STUDY: Head CT August 27, 2021. TECHNIQUE: Unenhanced axial CT scan of the brain was performed from the vertex to the skull base. A dose lowering technique was utilized adhering to the principles of ALARA. CT DOSE: 703.85 mGy.cm FINDINGS: Brain parenchyma: No acute intracranial hemorrhage, midline shift or mass effect is present. Jarquin-whi te matter differentiation is preserved. There are no extra-axial fluid collections. There are no find ings to suggest acute dural sinus thrombosis or acute territorial infarct. White matter hypodensities have mildly progressed since CT of August 27, 2021. These favor small vessel disease. Ventricles, sulci, cisterns: There is no hydrocephalus. The basal cisterns are patent. Calvarium: There are no calvarial fractures. Sinuses and mastoids: The visualized paranasal sinuses are clear. The mastoid air cells are well pneu matized. Orbits: The bony orbits are grossly intact. IMPRESSION: 1. No acute intracranial findings. 2. No calvarial fractures. ACT 112: Negative or not required by law. Electronically signed by: Ozzie Masters M.D. 09/05/2024 12:32 PM
--- NOTE | 2024-09-05 14:39 | Electrocardiogram Report ---
Test Reason : Blood Pressure : */* mmHG Vent. Rate : 70 BPM Atrial Rate : 70 BPM P-R Int : 156 ms QRS Dur : 124 ms QT Int : 484 ms P-R-T Axes : 52 -35 74 degrees QTcB Int : 522 ms Normal sinus rhythm Left axis deviation Left bundle branch block Abnormal ECG When compared with ECG of 26-Nov-2023 20:15, Left bundle branch block is now Present Criteria for Anterior infarct are no longer Present Criteria for Anterolateral infarct are no longer Present Criteria for Inferior infarct are no longer Present Confirmed by Juni Redman ([id number]) on 09/05/2024 2:39:23 PM Referred By: REFERRED SELF Confirmed By: Juni Redman
[2024-09-05] MEDS ORDERED: ACETAMINOPHEN 325 MG TAB PO PRN (14:50)
[2024-09-05] MEDS ORDERED: ALBUTEROL 0.083% NEBU SOLN 3 ML VIAL INH PRN (14:55)
[2024-09-05 15:39] LABS: Thyroid Stimulating Hormone 2.179 uIu/ml (0.300-4.500)
[2024-09-05] MEDS: ESCITALOPRAM OXALATE 20 MG TAB PO SCH (16:26)
[2024-09-05] MEDS: LEVOTHYROXINE SODIUM 75 MCG TABLET PO SCH (16:27)
[2024-09-05] MEDS: FUROSEMIDE 40 MG/4 ML VIAL IV ONE (16:32)
[2024-09-05 16:44] LABS: Appearance Urine Clear (Clear); Bacteria Urine Automated None Seen (None Seen); Cast Urine Automated 0-2 /lpf (0-2); Epithelial Cell Urine Auto 0-2 /hpf (0-2); Glucose Urine UA Negative (Negative); WBC Urine Automated 0-5 /hpf (0-5)
--- NOTE | 2024-09-05 16:54 | History & Physical Report ---
Date of Service September 05, 2024 Assessment & Plan (1) Syncope: Plan: As above in the History of Present Illness. (2) Fall: Plan: As above in the History of Present Illness. History of Present Illness Chief Complaint: "I passed out this morning in my room. 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 Isabella Bonilla), GERD on protonix 40mg PO daily, hypothyroidism on synthroid 75ug PO daily with normal TSH 2.179 uIU/mL (09/05/2024, 11:31am), chronic normocytic, normochromic anemia with baseline Hb range, 10.3 - 11.5 g/dL (11/21/2023 - 08/19/2024), major depression on escitalopram 20mg PO daily, insomnia disorder on melatonin 5mg SL qhs, hypotension on fludrocortisone 0.1mg PO daily, LBBB (as noted on 11/20/2024, 11:54am EKG), prolonged QTC interval (cf., QTC 516 ms as noted on 11/20/2024, 11:54am EKG; QTC 480 ms as noted on 11/25/2024, 8:45pm EKG), chronic systolic CHF with reduced LVEF 45-50% (as noted on 11/22/2023, 7:18am TTE, CARDS Dr. Zeus French), and chronic diastolic CHF with grade I LV diastolic dysfunction (as noted on 11/22/2023, 7:18am TTE, CARDS Dr. Zeus French), who was in her room alone @ [facility], when her knowledge analyst heard a "thud" and opened the patient's door to find the patient on the floor, unconscious, but not in any distress. Patient had not lost continence of either urine or stool, and patient was not febrile, clammy, or diaphoretic. Patient "woke up" immediately, and was not confused, lethargic, or obtunded. Instead, patient smiled brightly and spoke clearly/coherently as is her daily habit. Patient was subsequently brought in by EMS from [facility] to [facility] ER on 09/05/2024. In [facility] ER bed #A9B, patient was afebrile at 36.6 de grees Celsius, HR 74, RR 21, O2 sat 93% on room air, and BP 126/63 (09/05/2024, 1:00pm). Exam was noted for a patient who remained wide awake and alert, and who breathed comfortably without audible expiratory wheeze, egophony, pectoriloquy, increase in tactile fremitus, or flatness/dullness to percussion at the bases. In addition, there was no hepato-jugular reflux with jugular venous pressure estimated to be 3 cm above the sternal angle of Leoncio, which in turn, is 5 cm above the level of the right atrium; hence, with jugular venous pressure estimated to be 8 cm, then, there is no jugular venous distention on 09/05/2024. No peripheral edema (pitting or non-pitting) of the lower extremities. 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 Isabella Bonilla). Labs in [facility] ER bed #A9B included: WBC 5.31, N68 L16 M12 E2 B1, Hb 11.1, MCV 96.7, MCHC 31.8, platelet 145 (09/05/2024, 11:31am). Na 141, K 4.4, BUN 19, creatinine 0.79, glucose 90, Ca 9.1, AST 23, ALT 14, ALK PHOS 55, TBili 0.6 (09/05/2024, 11:31am). Lactic acid #1 0.9 mmol/L (09/05/2024, 3:26pm). Procalcitonin #1 0.04 ng/mL (09/05/2024, 3:26pm). Troponin-I #1 9.7 pg/mL (09/05/2024, 11:31am). Troponin-I #2 (09/05/2024, 3:31pm). BNP (09/05/2024, 5:10pm). U/A: LE-, nitrite- (09/05/2024, 4:01pm). MRSA nares PCR (09/05/2024, 4:30pm). BIOFIRE resp panel ____ (09/05/2024, 4:30pm). Additional testing includes: EKG (09/05/2024, 11:22am): NSR @ 70, WV 156, QTC 522, LAD, Q in III, aVF; TWI in I, aVL; LBBB (by my review). EKG (11/26/2023, 8:45pm): sinus bradycardia @ 55, WV 146, QTC 480, LAD, Q in III, aVF; no TWI; no LBBB, no acute ST depressions/elevations (by my review). EKG (11/20/2024, 11:54am): NSR @ 85, WV 150, QTC 516, LAD, Q in III, aVF; no TWI; LBBB (by my review). CT brain without IV contrast (09/05/2024, 11:25am): No acute bleed, mass, or midline shift. Portable CXR (09/05/2024, 11:25am): Cardiomegaly with mild pulmonary vascular congestion. No infiltrate, effusion, pneumothorax (by my review). Patient was subsequently placed in OBSERVATION on the hospitalist service @ [facility] on 09/05/2024 with the following diagnosis: 1. Syncope, R/O orthostasis, R/O acute NSTEMI. 3. s/p mechanical fall in room @ [facility]. To address #1, patient awaits orthostatic BP and HR while supine, sitting, and standing; patient also awaits troponin-I #2 (09/05/2024, 3:31pm) and EKG #2 (09/05/2024, 3:31pm) to rule out acute NSTEMI. To address #2, patient is being held off her home-scheduled protonix 40mg PO daily given the known association of this drug with falls/fractures. Patient also awaits PT/OT Service evaluations in the 09/06/2024 am, to determine if patient is physically capable of being discharged back to her [facility], or if patient stands to benefit from D/C to SNF for short-term rehab. Allergies Allergy/AdvReac Type Severity Reaction Status Date / Time No Known Allergies Allergy Verified 01/01/24 15:10 Home Medications Medication Instructions Recorded Confirmed Type cholecalciferol (vitamin D3) 25 1,000 unit PO QAM 03/19/19 09/05/24 History mcg (1,000 unit) tablet (Vitamin D3) levothyroxine 75 mcg tablet 0 mcg PO QAM 03/19/19 09/05/24 History docusate sodium 100 mg capsule 200 mg PO HS 10/01/20 09/05/24 History (Colace) pravastatin 20 mg tablet 0 mg PO DAILY 10/01/20 09/05/24 History L.acidophil,salivari-Bifido 1 cap PO DAILY 08/19/21 09/05/24 History bifidum-Strep thermoph 175 mg capsule (Acidophilus Probiotic Blend) alendronate 70 mg tablet (Fosamax) 70 mg PO WK 08/19/21 09/05/24 History cyanocobalamin (vitamin B-12) 250 250 mcg PO QAM 08/19/21 09/05/24 History mcg tablet (Vitamin B-12) escitalopram oxalate 20 mg tablet 20 mg PO DAILY 08/19/21 09/05/24 History melatonin 5 mg sublingual tablet 0 mg sublingual HS 08/19/21 09/05/24 History sennosides 8.6 mg tablet (senna) 0 mg PO HS 08/19/21 09/05/24 History acetaminophen 325 mg tablet 650 mg PO Q4H PRN Headache 10/18/21 09/05/24 History bisacodyl 10 mg rectal suppository 0 mg WV DAILY PRN Constipation 10/18/21 09/05/24 History hydrocortisone 0.25 % topical cream 0 applic topical DIRECTED 10/18/21 09/05/24 History omega 5-xgh-qpr-fish oil 1,000 mg 0 cap PO DAILY 10/18/21 09/05/24 History (120 mg-180 mg) capsule (Fish Oil) pantoprazole 40 mg tablet,delayed 40 mg PO DAILY 10/18/21 09/05/24 History release mirabegron 50 mg tablet,extended 50 mg PO DAILY #90 tabs 08/23/23 09/05/24 Rx release 24 hr (Myrbetriq) fludrocortisone 0.1 mg tablet 0 mg PO DAILY hypotension 11/21/23 09/05/24 History acetaminophen 500 mg tablet 500 mg PO Q6H PRN arthritis 09/05/24 09/05/24 History albuterol sulfate 2.5 mg/3 mL 2.5 mg inhalation Q6H PRN Wheezing 09/05/24 09/05/24 History (0.083 %) solution for nebulization aloe vera 1 applic topical DAILY PRN sunburn 09/05/24 09/05/24 History aluminum-mag hydroxide-simethicone 30 ml PO UD PRN Indigestion 09/05/24 09/05/24 History 200 mg-200 mg-20 mg/5 mL oral susp furosemide 20 mg tablet 0 mg PO DAILY PRN Weight Gain 09/05/24 09/05/24 History olopatadine 0.2 % eye drops 1 drp ophthalmic (eye) DAILY 09/05/24 09/05/24 History polyethylene glycol 3350 17 17 g PO DAILY PRN Constipation 09/05/24 09/05/24 History gram/dose oral powder (Miralax) potassium chloride 10 mEq 10 meq PO BID 09/05/24 09/05/24 History tablet,extended release(part/cryst) zinc oxide-cod liver oil 40 % 1 applic topical DAILY PRN Diaper 09/05/24 09/05/24 History topical paste (Desitin) Rash Past Med/Surg History Problem List (Updated 09/05/24 @ 17:42 by Jason Rossi MD, PhD) Fall Syncope Anemia (Acute) Syncope (Acute) Somnolence (Acute) CHF (congestive heart failure) (Acute) Anemia (Acute) Hypoxia (Acute) Elevated troponin Hypokalemia COVID-19 Hypoxia Generalized weakness Incomplete bladder emptying Urinary frequency Gastric ulcer Change in mental status (Acute) Diverticulitis (Acute) Fever (Acute 04/09/13) Fever (Acute) Hypoxemia (Acute) Influenza A (Acute) Pneumonia (Acute) Pneumonia (Acute) Influenza B (Acute) Acute respiratory failure with hypoxia Left lower lobe pneumonia Hypothyroidism Leukopenia Thrombocytopenia Discharge planning issues Microscopic hematuria Urinary incontinence Dysuria Vaginal atrophy Upper gastrointestinal hemorrhage (Acute) Anemia (Acute) Down syndrome (Acute) CAD (coronary artery disease) Pneumonia (Acute) Leukocytosis (Acute) Acute diverticulitis (Acute) Heart disease (Chronic) Medical History COVID-19 History of seizure grand mal > last episode per staff at [facility] Hearing loss in left ear Seasonal allergies Mild intellectual disability Hypothyroidism OCD (obsessive compulsive disorder) Gastric ulcer with hemorrhage Acute blood loss anemia GI bleed Fall Mitral regurgitation Ischemic cardiomyopathy Chronic constipation Surgical History Hx of cataract extraction bilat History of repair of hiatal hernia H/O: hysterectomy per pts sister Family History (Updated 09/05/24 @ 17:30 by Jason Rossi MD, PhD) Father , at 92 years of age from natural causes. No problems noted. Mother , at 92 years of age from natural causes. No problems noted. 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 Feels Safe at Home: Yes Assistive Devices: Walker Review of Systems Constitutional: Positive for syncope and mechanical fall in room @ [facility]. Negative for antecedent/coincident fevers, chills, diaphoresis, cough, wheeze, sore throat, hemoptysis, shortness of breath, dyspnea on exertion, paroxysmal nocturnal dyspnea, orthopnea, platypnea, weight gain, weight loss, chest pains, palpitations, pleurisy, nausea, vomiting, diarrhea, abdominal pain, pelvic pain, hematemesis, hematochezia, melena, hematuria, dysuria, frequency, urgency, headaches, dizziness, lightheadedness, visual changes, hearing changes, weakness, trauma, travel history, sick contacts, or food/drug ingestions novel or new. All other review of systems are reported as negative by the patient on 09/05/2024. Physical Exam Constitutional: General: Comfortable, cooperative, coherent. Wide awake and alert. Not confused, lethargic, or obtunded. Patient speaks in complete, fluent, and articulate sentences without pause, interruption, cough, or wheeze. HEENT: Normocephalic, atraumatic. Pupils equally round and reactive to light. No nystagmus, gaze paresis, anisocoria, miosis, mydriasis, hyphema, scleral injection, conjunctivitis, or pterygium. Chronic right ptosis s/p resection of right eye tumor @ [facility] (2023, Technical Recruiter Dr. Isabella Bonilla). No otorrhea. No pharyngeal erythema, edema, or discharge. Neck: Supple, no stridor, bruit, goiter, or hepato-jugular reflux. Jugular venous pressure is estimated to be 3 cm above the sternal angle of Leoncio, which in turn, is 5 cm above the level of the right atrium; with jugular venous pressure estimated to be 8 cm, then, there is no jugular venous distention on 09/05/2024. Lymphatics: No cervical (anterior/posterior), supraclavicular, infraclavicular, axillary, epitrochlear, or inguinal adenopathy. Chest: Symmetric rise and fall with respirations. Non-tender to palpation. Lungs: Clear to auscultation and percussion. No audible expiratory wheeze, egophony, pectoriloquy, increase in tactile fremitus, or flatness/dullness to percussion at the bases. Heart: RRR. S1 and S2 noted. No S3 or S4 summation gallop. No tripartite friction rub. Grade II/ early systolic murmur @ LLSB without radiation to the carotids, axilla, or back, and which remains invariant in regards to the respiratory cycle. Abdomen: Soft, non-tender, non-distended. No rebound, guarding, Mehta's sign, or organomegaly. Bowel sounds auscultated in all 4 quadrants. Extremities: No clubbing, cyanosis, or edema in upper extremities or lower extremities bilaterally. 2+ pedal pulses bilaterally. Skin: No decubitus ulcer or enanthem. Genito-urinary: No urethral discharge. No burroughs catheter. Neurology: Alert and oriented in regards to person, place, time, and situation. DTR+. 5/5 motor strength in all 4 extremities, both proximally and distally. No myoclonus, tremors, or tics. Psychiatry: No homicidal ideation. No suicidal ideation. No flat affect; smiles appropriately. Results & Data Results & Data Vital Signs (Past 12 Hours) Vital Signs Temp Pulse Pulse Resp BP BP Pulse Ox 09/05/24 16:00 80 20 121/70 97 09/05/24 14:09 76 22 136/79 94 09/05/24 13:00 74 21 126/63 93 09/05/24 12:56 73 20 128/63 96 09/05/24 11:57 67 20 132/75 94 09/05/24 11:57 68 20 95 09/05/24 11:35 74 09/05/24 11:13 36.6 C 69 12 132/75 93 O2 Del Method 09/05/24 16:00 Room Air 09/05/24 14:09 Room Air 09/05/24 13:00 Room Air 09/05/24 12:56 Room Air 09/05/24 11:57 Room Air 09/05/24 11:57 Room Air 09/05/24 11:35 09/05/24 11:13 Room Air Laboratory Results As above in the History of Present Illness. Diagnostic Findings As above in the History of Present Illness. Code Status & VTE Plan Code Status DNR/DNI @ [facility]. VTE Prophylaxis Plan VTE Prophylaxis will be ordered: Yes PG Care Time/CCT Total # of Minutes Spent Total Time Spent with Patient: Total time spent is greater than 50% in coordination of care (as documented) at patient's floor/unit and/or counseling patient: Coding Level of Care Code 51859 INT INP/OBS CARE MIN Diagnoses Syncope R55 Fall W19.XXXA Time Spent (min) 59
[2024-09-05 17:38] LABS: Chlamydia pneumoniae PCR Not Detected (NotDetected); Coronavirus 229E PCR Not Detected (NotDetected); Coronavirus CoV-2 (COVID19)PCR Not Detected (NotDetected); Coronavirus HKU1 PCR Not Detected (NotDetected); Coronavirus NL63 PCR Not Detected (NotDetected); Coronavirus OC43PCR Not Detected (NotDetected); Human Metapneumovirus PCR Not Detected (NotDetected); Parainfluenza Virus 1 PCR Not Detected (NotDetected); Parainfluenza Virus 2 PCR Not Detected (NotDetected); Parainfluenza Virus 3 PCR Not Detected (NotDetected); Parainfluenza Virus 4 PCR Not Detected (NotDetected); Respiratory Syncytial VirusPCR Not Detected (NotDetected); Rhinovirus/Enterovirus PCR Not Detected (NotDetected)
[2024-09-05 18:27] VITALS: TEMP 98.2
[2024-09-05] MEDS: FLUDROCORTISONE ACETATE 0.1 MG TAB PO SCH (19:57)
[2024-09-05] MEDS: MELATONIN 3 MG TAB PO SCH (20:01)
[2024-09-05] MEDS: HEPARIN SOD 5,000 UNIT/0.5 ML VIAL SQ SCH (20:01)
[2024-09-06 06:15] LABS: Hematocrit (blood only) 33.9 % (37.0-47.0); Hemoglobin 11.3 g/dl (12.0-16.0); Immature Granulocytes # (auto) 0.02 K/uL (0.01-0.20); Immature Granulocytes % (auto) 0.4 %; Mean Corpuscular Hemoglobin 31.7 pg (25.0-34.0); Mean Corpuscular Volume 95.0 fL (80.0-100.0); Platelet Count 147 K/uL (130-400); RDW Standard Deviation 48.8 fL (36.4-46.3); Red Blood Count 3.57 M/uL (4.20-5.40); White Blood Count 5.59 K/ul (4.8-10.8)
[2024-09-06 06:39] LABS: Anion Gap 9.0 (3-11); Blood Urea Nitrogen 18.0 mg/dl (6-23); Calcium 8.9 mg/dl (8.6-10.3); Carbon Dioxide 31.0 mmol/L (21-32); Chloride 103.0 mmol/L (98-107); Creatinine Clr Calc Pharmacy 48.9 ml/min; Glucose 86.0 mg/dl (70-99(Fasting)); Potassium 3.5 mmol/L (3.5-5.1); Sodium 143.0 mmol/L (136-145)
[2024-09-06 07:03] VITALS: BP 138/77; PULSE 80; RESP 18
[2024-09-06 07:04] VITALS: O2SAT 93
--- NOTE | 2024-09-06 09:26 | Discharge Summary ---
Discharge Summary Date of Service September 06, 2024 Principal Dx & Hospital Course #1 = Principal Diagnosis (1) Syncope: No recurrence of syncope while in [facility]. Patient was NOT orthostatic by heart rate or by blood pressure when transitioning from supine to sitting to standing position while in [facility]. I surmise that patient may have experienced a vasovagal event in her room @ [facility]. No intervention--pharmacologic or procedural--is warranted. Patient was subsequently discharged back to her room @ [facility] on 09/06/2024, and was advised to follow up with her PCP Dr. Lulu Harper within 5-7 days of hospital discharge. (2) Fall: No recurrence of syncope while in [facility]. Patient was NOT orthostatic by heart rate or by blood pressure when transitioning from supine to sitting to standing position while in [facility]. I surmise that patient may have experienced a vasovagal event in her room @ [facility]. No intervention--pharmacologic or procedural--is warranted. Patient was subsequently discharged back to her room @ [facility] on 09/06/2024, and was advised to follow up with her PCP Dr. Lulu Harper within 5-7 days of hospital discharge. 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 Isabella Bonilla), GERD on protonix 40mg PO daily, hypothyroidism on synthroid 75ug PO daily with normal TSH 2.179 uIU/mL (09/05/2024, 11:31am), chronic normocytic, normochromic anemia with baseline Hb range, 10.3 - 11.5 g/dL (11/21/2023 - 08/19/2024), major depression on escitalopram 20mg PO daily, insomnia disorder on melatonin 5mg SL qhs, hypotension on fludrocortisone 0.1mg PO daily, LBBB (as noted on 11/20/2024, 11:54am EKG), prolonged QTC interval (cf., QTC 516 ms as noted on 11/20/2024, 11:54am EKG; QTC 480 ms as noted on 11/25/2024, 8:45pm EKG), chronic systolic CHF with reduced LVEF 45-50% (as noted on 11/22/2023, 7:18am TTE, CARDS Dr. Zeus French), and chronic diastolic CHF with grade I LV diastolic dysfunction (as noted on 11/22/2023, 7:18am TTE, CARDS Dr. Zeus French), who was in her room alone @ [facility], when her circuit rider heard a "thud" and opened the patient's door to find the patient on the floor, unconscious, but not in any distress. Patient had not lost continence of either urine or stool, and patient was not febrile, clammy, or diaphoretic. Patient "woke up" immediately, and was not confused, lethargic, or obtunded. Instead, patient smiled brightly and spoke clearly/coherently as is her daily habit. Patient was subsequently brought in by EMS from [facility] to [facility] ER on 09/05/2024. In [facility] ER bed #A9B, patient was afebrile at 36.6 degrees Celsius, HR 74, RR 21, O2 sat 93% on room air, and BP 126/63 (09/05/2024, 1:00pm). Exam was noted for a patient who remained wide awake and alert, and who breathed comfortably without audible expiratory wheeze, egophony, pectoriloquy, increase in tactile fremitus, or flatness/dullness to percussion at the bases. In addition, there was no hepato-jugular reflux with jugular venous pressure estimated to be 3 cm above the sternal angle of Leoncio, which in turn, is 5 cm above the level of the right atrium; hence, with jugular venous pressure estimated to be 8 cm, then, there is no jugular venous distention on 09/05/2024. No peripheral edema (pitting or non-pitting) of the lower extremities. In addition, patient demonstrated chronic right ptosis s/p re section of right eye tumor @ [facility] (2023, Float Operator Dr. Isabella Bonilla). Labs in [facility] ER bed #A9B included: WBC 5.31, N68 L16 M12 E2 B1, Hb 11.1, MCV 96.7, MCHC 31.8, platelet 145 (09/05/2024, 11:31am). Na 141, K 4.4, BUN 19, creatinine 0.79, glucose 90, Ca 9.1, AST 23, ALT 14, ALK PHOS 55, TBili 0.6 (09/05/2024, 11:31am). Lactic acid #1 0.9 mmol/L (09/05/2024, 3:26pm). Procalcitonin #1 0.04 ng/mL (09/05/2024, 3:26pm). Troponin-I #1 9.7 pg/mL (09/05/2024, 11:31am). Troponin-I #2 (09/05/2024, 3:31pm). BNP (09/05/2024, 5:10pm). U/A: LE-, nitrite- (09/05/2024, 4:01pm). MRSA nares PCR (09/05/2024, 4:30pm). BIOFIRE resp panel ____ (09/05/2024, 4:30pm). Additional testing includes: EKG (09/05/2024, 11:22am): NSR @ 70, WY 156, QTC 522, LAD, Q in III, aVF; TWI in I, aVL; LBBB (by my review). EKG (11/26/2023, 8:45pm): sinus bradycardia @ 55, WY 146, QTC 480, LAD, Q in III, aVF; no TWI; no LBBB, no acute ST depressions/elevations (by my review). EKG (11/20/2024, 11:54am): NSR @ 85, WY 150, QTC 516, LAD, Q in III, aVF; no TWI; LBBB (by my review). CT brain without IV contrast (09/05/2024, 11:25am): No acute bleed, mass, or midline shift. Portable CXR (09/05/2024, 11:25am): Cardiomegaly with mild pulmonary vascular congestion. No infiltrate, effusion, pneumothorax (by my review). Patient was subsequently placed in OBSERVATION on the hospitalist service @ [facility] on 09/05/2024 with the following diagnosis: 1. Syncope, R/O orthostasis, R/O acute NSTEMI. 3. s/p mechanical fall in room @ [facility]. To address #1, patient awaits orthostatic BP and HR while supine, sitting, and standing; patient also awaits troponin-I #2 (09/05/2024, 3:31pm) and EKG #2 (09/05/2024, 3:31pm) to rule out acute NSTEMI. To address #2, patient is being held off her home-scheduled protonix 40mg PO daily given the known association of this drug with falls/fractures. Patient also awaits PT/OT Service evaluations in the 09/06/2024 am, to determine if patient is physically capable of being discharged back to her [facility], or if patient stands to benefit from D/C to SNF for short-term rehab. Discharge Exam Constitutional General: Comfortable, cooperative, coherent. Wide awake and alert. Not confused, lethargic, or obtunded. Patient speaks in complete, fluent, and articulate sentences without pause, interruption, cough, or wheeze. HEENT: Normocephalic, atraumatic. Pupils equally round and reactive to light. No nystagmus, gaze paresis, anisocoria, miosis, mydriasis, hyphema, scleral injection, conjunctivitis, or pterygium. Chronic right ptosis s/p resection of right eye tumor @ [facility] (2023, Float Operator Dr. Isabella Bonilla). No otorrhea. No pharyngeal erythema, edema, or discharge. Neck: Supple, no stridor, bruit, goiter, or hepato-jugular reflux. Jugular venous pressure is estimated to be 3 cm above the sternal angle of Leoncio, which in turn, is 5 cm above the level of the right atrium; with jugular venous pressure estimated to be 8 cm, then, there is no jugular venous distention on 09/05/2024 - 09/06/2024. Lymphatics: No cervical (anterior/posterior), supraclavicular, infraclavicular, axillary, epitrochlear, or inguinal adenopathy. Chest: Symmetric rise and fall with respirations. Non-tender to palpation. Lungs: Clear to auscultation and percussion. No audible expiratory wheeze, egophony, pectoriloquy, increase in tactile fremitus, or flatness/dullness to percussion at the bases. Heart: RRR. S1 and S2 noted. No S3 or S4 summation gallop. No tripartite friction rub. Grade II/ early systolic murmur @ LLSB without radiation to the carotids, axilla, or back, and which remains invariant in regards to the respiratory cycle. Abdomen: Soft, non-tender, non-distended. No rebound, guarding, Mehta's sign, or organomegaly. Bowel sounds auscultated in all 4 quadrants. Extremities: No clubbing, cyanosis, or edema in upper extremities or lower extremities bilaterally. 2+ pedal pulses bilaterally. Skin: No decubitus ulcer or enanthem. Genito-urinary: No urethral discharge. No burroughs catheter. Neurology: Alert and oriented in regards to person, place, time, and situation. DTR+. 5/5 motor strength in all 4 extremities, both proximally and distally. No myoclonus, tremors, or tics. Psychiatry: No homicidal ideation. No suicidal ideation. No flat affect; smiles appropriately. Discharge Plan Discharge Items Patient Disposition: Personal Jail Reason For Visit: ACUTE EXACERBATION OF CHRONIC SYSTOLIC CHF WITH RE Discharge Diagnosis: 1. NOT acute exacerbation of chronic systolic/diastolic CHF. 2. Syncope, probably vaso-vagal mechanism, RESOLVED. Condition on Discharge: Fair Activity: Resume your previous activity Lifting: Gradually increase as tolerated Bathing: No limitations Exercise/Sports: Gradually increase as tolerated Weightbearing: Full weightbearing Non-emergency contact: Primary Care Provider Call non-emergency contact if: you have any medication questions Follow-up/Referrals: Lulu Harper MD [Primary Care Provider] - Diet: Heart Healthy Addtl Attending Provider Instructions: See your PCP Dr. Lulu Harper within 5-7 days of hospital discharge. Pending Studies at Discharge: No Stand-Alone Forms: [email or web address], Smoking Cessation Skilled Items Patient informed of condition?: Yes DNR: Yes Discharge Level of Care: Other Communicable Disease: No Discharge Prognosis: Stable Lines: None Urinary Catheter: No Medications and DC Order Prescriptions: Continued mirabegron [Myrbetriq] 50 mg tablet extended release 24 hr 50 mg PO DAILY Qty: 90 2RF Rx Instructions: Take one tablet daily. pravastatin 20 mg tablet 0 mg PO DAILY Patient Comments: 09/05- not on faxed med list unable to verify. docusate sodium [Colace] 100 mg capsule 200 mg PO HS levothyroxine 75 mcg tablet 0 mcg PO QAM Patient Comments: 09/05- not on faxed med list unable to verify. cholecalciferol (vitamin D3) [Vitamin D3] 25 mcg (1,000 unit) Tablet 1,000 unit PO QAM sennosides [senna] 8.6 mg Tablet 0 mg PO HS Patient Comments: 09/05- not on faxed med list unable to verify. Rx Instructions: HOLD FOR LOOSE STOOLS melatonin 5 mg Tablet, Sublingual 0 mg sublingual HS Patient Comments: 09/05- not on faxed med list unable to verify. alendronate [Fosamax] 70 mg Tablet 70 mg PO WK Rx Instructions: TAKES ON TUESDAYS. cyanocobalamin (vitamin B-12) [Vitamin B-12] 250 mcg Tablet 250 mcg PO QAM escitalopram oxalate 20 mg tablet 20 mg PO DAILY L.acidoph,saliva-B.bif-S.therm [Acidophilus Probiotic Blend] 175 mg Capsule 1 cap PO DAILY acetaminophen 325 mg Tablet 650 mg PO Q4H PRN (Reason: Headache) omega 5-mvy-dgc-fish oil [Fish Oil] 1,000 mg (120 mg-180 mg) Capsule 0 cap PO DAILY Patient Comments: 09/05- not on faxed med list unable to verify. pantoprazole 40 mg tablet,delayed release (DR/EC) 40 mg PO DAILY bisacodyl 10 mg Suppository 0 mg WY DAILY PRN (Reason: Constipation) Patient Comments: 7- not on faxed med list unable to verify. hydrocortisone 0.25 % Cream 0 applic topical DIRECTED Patient Comments: 09/05- not on faxed med list unable to verify. albuterol sulfate 2.5 mg /3 mL (0.083 %) solution for nebulization 2.5 mg inhalation Q6H PRN (Reason: Wheezing) acetaminophen 500 mg Tablet 500 mg PO Q6H PRN (Reason: arthritis) alum-mag hydroxide-simeth 200-200-20 mg/5 mL Suspension 30 ml PO UD MDD 12 teaspoons PRN (Reason: Indigestion) Rx Instructions: between meals and at bedtime polyethylene glycol 3350 [Miralax] 17 gram/dose Powder 17 g PO DAILY PRN (Reason: Constipation) aloe vera Gel 1 applic TOPICAL DAILY PRN (Reason: sunburn) potassium chloride 10 mEq tablet,ER particles/crystals 10 meq PO BID olopatadine 0.2 % Drops 1 drp OPHTHALMIC (EYE) DAILY Rx Instructions: Right eye Desitin 40 % Paste 1 applic TOPICAL DAILY PRN (Reason: Diaper Rash) furosemide 20 mg tablet 0 mg PO DAILY PRN (Reason: Weight Gain) Patient Comments: 09/05- not on faxed med list unable to verify. swelling or weight gain of 2 lbs fludrocortisone 0.1 mg tablet 0 mg PO DAILY Patient Comments: 09/05- not on faxed med list unable to verify. Discharge Orders: Discharge Order (Routine); Ordered 09/06/24 Ordered By: Jason Rossi Discharge Order- CHF (Routine); Ordered 09/06/24 Ordered By: Jason Rossi Admission Data Admit Date/Time: 09/05/24 14:50 Attending Provider: Jason Rossi Admit Provider: Jason Rossi Primary Care Provider: Lulu Harper Other Providers: Jason Rossi Hospital Stay Data Consultations 09/05/24 12:59 ED Decision to Admit Stat Diagnostic Imagining Performed 09/05/24 11:25 CT head/brain wo con Stat Pending Results Patient Have Any Pending Studies at Discharge: No Discharge Instructions Given to Patient (Per Discharging Provider) See your PCP Dr. Lulu Harper within 5-7 days of hospital discharge. Total Time Total Time Spent Total Time Spent (In Minutes): 35 minutes. Of this time period, 19 minutes were spent in coordinating patient's discharge. Coding Level of Care Code 89663 INP/OBS DISCH >30 MIN Diagnoses Syncope R55 Fall W19.XXXA
--- NOTE | 2024-09-08 22:16 | Electrocardiogram Report ---
Test Reason : Blood Pressure : */* mmHG Vent. Rate : 81 BPM Atrial Rate : 81 BPM P-R Int : 154 ms QRS Dur : 126 ms QT Int : 458 ms P-R-T Axes : 79 -51 63 degrees QTcB Int : 532 ms Normal sinus rhythm Left axis deviation Left bundle branch block Abnormal ECG When compared with ECG of 05-Sep-2024 11:22, No significant change was found Confirmed by Janak Trimble ([id number]) on 09/08/2024 10:16:21 PM Referred By: REFERRED SELF Confirmed By: Janak Trimble
== END 2024-09-06 12:16 | disposition home or self-care (01) ==
LOC: ED 11:10 → 3N 11:10